=== PATIENT | male | born 1935 | race Caucasian/White ===

== ENCOUNTER 2020-11-22 16:53 | Inpatient (IN) | payer MEDICARE, SELFPAY ==
--- NOTE | ~2020-11-22 | CT_ITS ---
EXAMINATION: CT HEAD WITHOUT CONTRAST CLINICAL INFORMATION: Altered mental status COMPARISON: CT head 09/07/2012 TECHNIQUE: Contiguous axial imaging was performed from the skull base to vertex without intravenous administration of contrast. Coronal and sagittal reformatted images are performed at CT scanner This CT examination was performed using dose optimization techniques as appropriate, variously including the following: *Automated exposure control *Adjustment of mA and/or kV according to patient size (this includes techniques or standardized protocols for targeted exams where dose is matched to indication/reason for exam; i.e. extremities or head) *Use of iterative reconstruction technique DLP: 678 mGy-cm FINDINGS: There is no evidence of acute intracranial hemorrhage or territorial infarction. No abnormal mass effect or midline shift is seen. Mck[place] to white matter differentiation is well preserved. No extra-axial fluid collections are identified. There is atrophy with prominence of the ventricles and the sulci and hypodensity of the periventricular white matter due to chronic small vessel ischemic disease. There are vascular calcifications of the internal carotid arteries bilaterally. The osseous structures and soft tissues are normal. The mastoid air cells and visualized portions of the paranasal sinuses are well aerated. CT/CT head/brain wo con IMPRESSION: No acute intracranial pathology.
--- NOTE | ~2020-11-22 | CT_ITS ---
EXAMINATION: CT CHEST WITHOUT CONTRAST CLINICAL INFORMATION: Shortness of breath COMPARISON: Chest radiograph earlier today TECHNIQUE: Multidetector volumetric CT imaging of the chest was done. Axial MIP volume rendering provided. Sagittal and coronal reformatted images were obtained. This CT examination was performed using dose optimization techniques as appropriate, variously including the following: *Automated exposure control *Adjustment of mA and/or kV according to patient size (this includes techniques or standardized protocols for targeted exams where dose is matched to indication/reason for exam; i.e. extremities or head) *Use of iterative reconstruction technique DLP: 352 mGy-cm FINDINGS: LUNGS AND PLEURA: Some increased interstitial markings are present in the pulmonary parenchyma consistent with some mild interstitial edema. There are bilateral pleural effusions similar to those seen on the chest radiograph with bibasilar associated compressive atelectasis. The findings at the lung bases appear more like atelectasis rather than infectious consolidation. No multifocal infiltrates are seen to suggest COVID or any other infectious etiology. MEDIASTINUM: No mediastinal or hilar lymphadenopathy is seen. Extensive coronary calcifications are present. The heart is minimally enlarged. No pericardial effusion is seen. AXILLA: No lymphadenopathy. UPPER ABDOMEN: A small calcified splenic granuloma is present. OSSEOUS STRUCTURES: Degenerative changes present spine CT/CT chest wo con IMPRESSION: CHF with bilateral pleural effusions and bilateral lower lobe atelectasis.
--- NOTE | ~2020-11-22 | XR_ITS ---
EXAMINATION: XR CHEST CLINICAL INFORMATION: Dyspnea and wheezing COMPARISON: Wrist radiograph 11/06/[address] abdomen pelvis 11/13/2019 TECHNIQUE: Frontal view of the chest was obtained. FINDINGS: The heart size is slightly larger than previously noted. There is upper zone redistribution present which is new. Bibasilar infiltrates present along with a small possible pleural effusions. XR/XR chest 1V IMPRESSION: Findings suggestive of CHF pulmonary vascular congestion and small effusions. Infectious etiology for infiltrate, especially at the right base, cannot be excluded.
[2020-11-22 17:04] VITALS: BP 178/85; PULSE 71; RESP 24; TEMP 36.6; O2SAT 96; BMI 41.2
--- NOTE | 2020-11-22 17:36 | ED_ITS ---
HPI - SOB/Dyspnea General Chief Complaint: Dyspnea Stated Complaint: diff breathing Time Seen by Provider: 11/22/20 17:36 Source: EMS Mode of arrival: EMS Limitations: language barrier and altered mental status History of Present Illness HPI Narrative: This is a 85-year-old Occitan-speaking male with past medical hi story that is significant for asthma, diabetes, hypertension, hyperlipidemia, hypothyroidism, colitis, and per family is due to see Neurology for possible diagnosis of dementia, interview conducted in the presence of operations superintendent though this is very limited given his current state as noted in the HPI below Patient arrives from home with complaint of shortness of breath and altered mental status going on for the past 1 week history mostly gathered from Granddaughter Erika [phone] and son Eloy Christensen [phone] whom the report is the healthcare proxy. She reports that patient at baseline somewhat confused and plan for evaluation for dementia actually has an appointment coming up with Neurology Dr. Richardson in 2 weeks however over the past 1 week he has become a little more confused than usual he has not been ambulating by himself which is usually able to do some ADLs and ambulate independently he has not been doing this appears to be short of breath and wheezing as well as he seems more confused and behaviorally he has been more aggressive. Given this they thought he might have a UTI versus some breathing problems so they called her primary care doctor on-call to given the symptoms was advised to come to the emergency room. Family denies any recent travel or sick contacts. States he has been taking his medication Unfortunately due to the COVID-19 most of my interview was conducted via phone with the family I evaluated patient at bedside who I found sitting up in erected position does not appear in any overt distress however his pulse oximeter at bedside res 92% on room air. His speech is intelligible states he only has problem with breathing otherwise denies any pain. He is alert and oriented x1. Otherwise he has no focal neurological findings on exam. MD elicited complaint: shortness of breath Pertinent past history: asthma and DVT Onset (ago): week(s) Severity: moderate Associated symptoms: wheezing Treatment prior to arrival: none Related Data Home Medications Medication Instructions Recorded Confirmed fluticasone propionate [Flovent 2 puff INHALATION BID 11/22/20 11/22/20 HFA] levothyroxine 125 mcg PO DAILY@0630 11/22/20 11/22/20 lisinopril-hydrochlorothiazide 1 tab PO DAILY 11/22/20 11/22/20 metformin 1,000 mg PO BIDWM 11/22/20 11/22/20 metoprolol succinate 100 mg PO DAILY 11/22/20 11/22/20 pioglitazone 15 mg PO DAILY 11/22/20 11/22/20 simvastatin 40 mg PO BEDTIME 11/22/20 11/22/20 tramadol 50 mg PO Q12H PRN 11/22/20 11/22/20 Allergies Allergy/AdvReac Type Severity Reaction Status Date / Time No Known Allergies Allergy Unverified 06/13/20 15:59 [No Known Allergies*] Review of Systems Review of Systems: Constitutional: No Weight loss, No Fever, No Chills, No Night Sweats, No Fatigue, No Malaise ENT/Mouth: No Hearing loss, No Ear Pain, No Nasal Congestion, No Sinus Pain, No Hoarseness, No sore throat, No Rhinorrhea, No Swallowing Difficulty Eyes: No Eye Pain, No Swelling, No Redness, No Foreign Body, No Discharge, No Vision Changes Cardiovascular: No Chest Pain, + SOB, No Edema, No Palpitations Respiratory: + Cough, No Sputum, No Wheezing, No Dyspnea Gastrointestinal: No Nausea, No Vomiting, No Diarrhea, No Constipation, No abdominal Pain, No Hematochezia, No Melena Genitourinary: No Dysuria, No Urinary Frequency, No Hematuria, No Urinary In continence, No Urgency, No Flank Pain, No Urinary Flow Changes, No Hesitancy Musculoskeletal: No joint pain, No Myalgias, No Joint Swelling Skin: No Skin Lesions, No rash Neuro: No Weakness, No Numbness, No Paresthesias, No Loss of Consciousness, No Dizziness, No Headache Psych: No SI/HI/AH/VH Heme/Lymph: No Bruising, No Bleeding,No Lymphadenopathy Endocrine: No Polyuria, No Polydipsia, No Temperature Intolerance Yes all other systems are reviewed and are negative (ROS with assist of Family ) Neurologic: Reports Abnormal speech present [facility] Past Medical History Medical History (Updated 11/22/20 @ 22:08 by Nicolás Pires NP) Arthritis Asthma Colitis Diabetes Hyperlipidemia Hypertension Hypothyroidism Social History Social History Advance Directives: No Advance Directives Information Provided: Yes Physical Exam Vital Signs: Vital Signs: Last Vital Signs Temp 98 F 11/22/20 17:04 Pulse 71 11/22/20 20:00 Resp 20 11/22/20 20:00 BP 126/67 11/22/20 20:00 Pulse Ox 95 11/22/20 20:08 Body Mass Index 41.2 Reviewed Const: Other: Appears overweight, elderly, frail General: acute distress mild and respiratory; No intoxicated appearing Nutritional Appearance: average body habitus Orientation/consciousness: oriented to person HENMT: Head: Yes normal to inspection Ears: hearing grossly normal bilaterally Eyes: General: appearance normal, both eyes and all related structures Visual [place]: normal visual [place] by confrontation Neck: Neck: Yes normal visual inspection, No positive Brudzinski's sign, No positive Kernig's sign and No tender Thyroid: Thyroid normal Chest: Chest palpation & inspection: normal inspection of the chest Resp: Effort & Inspection: normal respiratory effort and paradoxical thoraco- abdominal movements (Very mildly) Auscultation: wheezes scattered wheezes Cardio: Jugular venous distension: no JVD Rate: regular rate Rhythm: regular rhythm Heart sounds: S1 normal heart sound present and S2 normal heart sound present GI: Inspection: Yes normal to inspection Percussion: Yes normal to percussion Auscultation: normal bowel sounds : General: Yes no CVA tenderness Back/Spine/Pelvis: Back: no CVA tenderness Skin: General skin exam: no rashes or lesions noted Neuro: General: oriented to person, moves all extremities and Unable to assess gait Cranial nerves: Yes CN's II-XII intact bilaterally, Yes Normal accommodation reflex present, Yes Normal gag reflex present and Yes Ability to bilaterally elevate shoulders present Cognition (Neuro): abnormal cognition Speech: Abnormal speech present Gait exam (Neuro): Unable to assess gait Motor exam (neuro): 5/5 motor strength present throughout and Normal motor muscle tone present throughout Sensory Exam: Normal double simultaneous stimulation for sensation Extrem: General: Yes normal to inspection NIH Stroke Scale Internal: Initial- Upon Arrival Level of Consciousness: Alert Level of Consciousness Questions: Answers one question correctly Level of Consciousness Commands: Performs one task correctly Best Gaze: Normal Visual: No visual loss Facial Palsy: Normal Motor Arm (Right): No drift Motor Arm (Left): No drift Motor Leg (Right): No drift Motor Leg (Left): No drift Limb Ataxia: Absent Sensory: Normal Best Language: No aphasia Dysarthia: Normal Extinction and Inattention: No abnormality Score: 2 Course Course Course Narrative: 1744 In review 85-year-old Occitan-speaking male with past medical history that is significant for asthma, diabetes, hypertension, hyperlipidemia, hypothyroidism, colitis with possible underlying dementia presenting with altered mental status and some dyspnea with question of asthma exacerbation no recent fevers there is been a cough and also question per granddaughter of aspiration pneumonia seeming more confused and aggressive over the past 1 week. On examination alert and oriented to person but not place or time. Does have coarse respiratory sounds. He is oxygenating in the low 90s which dipped stones with any exertion even activity in the bed. At this time he is out of the window for tPA I question this change in mentation secondary to infectious pathology and less likely CVA. Will get a head CT including labs and COVID stratification labs/blood cultures and lactic acid.. Will treat with IV Solu-Medrol, nebs will be cautious with fluids at this time. Reevaluation(s) Reevaluation #1: 1800 Chest x-ray findings suggestive of CHF pulmonary vascular congestion and small effusions. Infectious etiology for infiltrate, especially at the right base, cannot be excluded. Given ceftriaxone for coverage of cap. Solu-Medrol and neb in progress. Does not appear to have any history of CHF in the past at this time he is in no acute distress hemodynamically stable will hold off on diuresis until we get labs back which should be relatively soon. Reevaluation #2: Labs without leukocytosis marginal drop in H&H since October 2019. Ages D-dimer within normal limits. CT findings CHF given Lasix given hypoxia plan for admission. Stable at this time. Consultations Consultation #1: Case discussed with hospitalist for admission. MDM - SOB/Dyspnea Differential Diagnosis Differential diagnosis: Likely acute exacerbation of chronic obstructive airways disease, congestive heart failure, pneumonia and asthma with exacerbation; Unlikely pulmonary embolism, pleural effusion, sleep apnea and anemia Medical Records Attestation: I reviewed the patient's medical records. Medical records narrative: Prior ED visit in the old EMR Seen in the ER for abdominal pain on 11/13/2019 Lab Data Attestation: I reviewed the patient's lab results. Result diagrams: 11/22/20 19:32 11/22/20 19:32 Labs: Lab Results 11/22/20 11/22/20 11/22/20 Range/Units 17:12 18:58 19:16 WBC (4.8-10.8) X10*3/uL RBC (4.60-5.80) X10*6/uL Hgb (14.0-18.0) g/dl Hct (42-52) % MCV (80-98) fL MCH (27.0-33.0) pg MCHC (31.0-36.0) g/dl RDW (11.0-16.0) % Plt Count (160-400) X10*3/uL MPV (9.4-12.4) fL Immature Gran % (Auto) (0.0-0.4) % Neut % (Auto) (45-73) % Lymph % (Auto) (20-40) % Brown % (Auto) (2-11) % Eos % (Auto) (0-4) % Baso % (Auto) (0-2) % Lymph # (Auto) (1.2-4.9) X10*3/uL Brown # (Auto) (0.1-1.2) X10*3/uL Eos # (Auto) (0.0-0.4) X10*3/uL Baso # (Auto) (0.0-0.2) X10*3/uL Abs Immat Gran (auto) (0.00-0.03) X10*3/uL Absolute Neuts (auto) (2.0-8.3) X10*3/uL Absolute Nucleated RBC (0.0-0.012) X10*3/uL Nucleated RBC % (auto) (0.0-0.2) /100WBC PT (10.8-13.0) SEC INR (0.9-1.1) APTT (24.1-38.0) SEC D-Dimer NG/ML Sodium (135-145) mmol/L Potassium (3.3-5.1) mmol/L Chloride (96-108) mmol/L Carbon Dioxide (22-29) mmol/L Anion Gap (12-20) BUN (9-16) mg/dL Creatinine (0.5-1.4) mg/dL Estim Creat Clear Calc Estimated GFR Random Glucose (60-115) mg/dL Lactic Acid (0.5-2.0) mmol/L Calcium (8.4-10.2) mg/dL Ferritin (20-250) ng/mL Total Bilirubin (0.0-1.0) mg/dL AST (5-37) U/L ALT (0-40) U/L Alkaline Phosphatase (39-117) U/L Lactate Dehydrogenase (118-273) U/L Troponin I High Sens (<3.5-35.0) ng/L C-Reactive Protein (< or = 0.50) mg/dL B-Natriuretic Peptide (<100) pg/mL Total Protein (6.5-8.0) g/dL Albumin (3.5-5.0) g/dL Procalcitonin ng/mL Urine Color YELLOW Urine Appearance CLEAR Urine pH 5.5 (5.0-8.0) Ur Specific [place] >= 1.030 H (1.005-1.025) Urine Protein TRACE (NEG-TRACE) MG/DL Urine Glucose (UA) NEG (NEG) MG/DL Urine Ketones NEG (NEG) MG/DL Urine Blood 2+ H (NEG) Urine Nitrite NEG (NEG) Ur Leukocyte Esterase NEG (NEG) Urine RBC 15-29 H (0) /HPF Urine WBC 0 (0-4) /HPF Ur Squamous Epith Cells NONE /LPF Urine Bacteria 1+ /LPF Coronavirus (PCR) NEGATIVE (Negative) COVID-19 (SAI) Negative (Negative) COVID-19 Clin Com See Note Influenza Type A (PCR) NEGATIVE (Negative) Influenza Type B (PCR) NEGATIVE (Negative) RSV RNA Qual (PCR) NEGATIVE (Negative) 11/22/20 11/22/20 11/22/20 Range/Units 19:31 19:31 19:31 WBC (4.8-10.8) X10*3/uL RBC (4.60-5.80) X10*6/uL Hgb (14.0-18.0) g/dl Hct (42-52) % MCV (80-98) fL MCH (27.0-33.0) pg MCHC (31.0-36.0) g/dl RDW (11.0-16.0) % Plt Count (160-400) X10*3/uL MPV (9.4-12.4) fL Immature Gran % (Auto) (0.0-0.4) % Neut % (Auto) (45-73) % Lymph % (Auto) (20-40) % Brown % (Auto) (2-11) % Eos % (Auto) (0-4) % Baso % (Auto) (0-2) % Lymph # (Auto) (1.2-4.9) X10*3/uL Brown # (Auto) (0.1-1.2) X10*3/uL Eos # (Auto) (0.0-0.4) X10*3/uL Baso # (Auto) (0.0-0.2) X10*3/uL Abs Immat Gran (auto) (0.00-0.03) X10*3/uL Absolute Neuts (auto) (2.0-8.3) X10*3/uL Absolute Nucleated RBC (0.0-0.012) X10*3/uL Nucleated RBC % (auto) (0.0-0.2) /100WBC PT (10.8-13.0) SEC INR (0.9-1.1) APTT (24.1-38.0) SEC D-Dimer NG/ML Sodium (135-145) mmol/L Potassium (3.3-5.1) mmol/L Chloride (96-108) mmol/L Carbon Dioxide (22-29) mmol/L Anion Gap (12-20) BUN (9-16) mg/dL Creatinine (0.5-1.4) mg/dL Estim Creat Clear Calc Estimated GFR Random Glucose (60-115) mg/dL Lactic Acid 1.1 (0.5-2.0) mmol/L Calcium (8.4-10.2) mg/dL Ferritin (20-250) ng/mL Total Bilirubin (0.0-1.0) mg/dL AST (5-37) U/L ALT (0-40) U/L Alkaline Phosphatase (39-117) U/L Lactate Dehydrogenase (118-273) U/L Troponin I High Sens 19.5 (<3.5-35.0) ng/L C-Reactive Protein (< or = 0.50) mg/dL B-Natriuretic Peptide 196 H (<100) pg/mL Total Protein (6.5-8.0) g/dL Albumin (3.5-5.0) g/dL Procalcitonin ng/mL Urine Color Urine Appearance Urine pH (5.0-8.0) Ur Specific [place] (1.005-1.025) Urine Protein (NEG-TRACE) MG/DL Urine Glucose (UA) (NEG) MG/DL Urine Ketones (NEG) MG/DL Urine Blood (NEG) Urine Nitrite (NEG) Ur Leukocyte Esterase (NEG) Urine RBC (0) /HPF Urine WBC (0-4) /HPF Ur Squamous Epith Cells /LPF Urine Bacteria /LPF Coronavirus (PCR) (Negative) COVID-19 (SAI) (Negative) COVID-19 Clin Com Influenza Type A (PCR) (Negative) Influenza Type B (PCR) (Negative) RSV RNA Qual (PCR) (Negative) 11/22/20 11/22/20 11/22/20 Range/Units 19:31 19:31 19:32 WBC 8.0 (4.8-10.8) X10*3/uL RBC 3.07 L (4.60-5.80) X10*6/uL Hgb 10.2 L (14.0-18.0) g/dl Hct 31.7 L (42-52) % MCV 103.3 H (80-98) fL MCH 33.2 H (27.0-33.0) pg MCHC 32.2 (31.0-36.0) g/dl RDW 15.0 (11.0-16.0) % Plt Count 296 (160-400) X10*3/uL MPV 10.6 (9.4-12.4) fL Immature Gran % (Auto) 0.5 H (0.0-0.4) % Neut % (Auto) 69.5 (45-73) % Lymph % (Auto) 22.5 (20-40) % Brown % (Auto) 5.8 (2-11) % Eos % (Auto) 1.4 (0-4) % Baso % (Auto) 0.3 (0-2) % Lymph # (Auto) 1.8 (1.2-4.9) X10*3/uL Brown # (Auto) 0.5 (0.1-1.2) X10*3/uL Eos # (Auto) 0.1 (0.0-0.4) X10*3/uL Baso # (Auto) 0.0 (0.0-0.2) X10*3/uL Abs Immat Gran (auto) 0.04 H (0.00-0.03) X10*3/uL Absolute Neuts (auto) 5.6 (2.0-8.3) X10*3/uL Absolute Nucleated RBC 0.000 (0.0-0.012) X10*3/uL Nucleated RBC % (auto) 0.0 (0.0-0.2) /100WBC PT (10.8-13.0) SEC INR (0.9-1.1) APTT (24.1-38.0) SEC D-Dimer NG/ML Sodium (135-145) mmol/L Potassium (3.3-5.1) mmol/L Chloride (96-108) mmol/L Carbon Dioxide (22-29) mmol/L Anion Gap (12-20) BUN (9-16) mg/dL Creatinine (0.5-1.4) mg/dL Estim Creat Clear Calc Estimated GFR Random Glucose (60-115) mg/dL Lactic Acid (0.5-2.0) mmol/L Calcium (8.4-10.2) mg/dL Ferritin 42 (20-250) ng/mL Total Bilirubin (0.0-1.0) mg/dL AST (5-37) U/L ALT (0-40) U/L Alkaline Phosphatase (39-117) U/L Lactate Dehydrogenase (118-273) U/L Troponin I High Sens (<3.5-35.0) ng/L C-Reactive Protein (< or = 0.50) mg/dL B-Natriuretic Peptide (<100) pg/mL Total Protein (6.5-8.0) g/dL Albumin (3.5-5.0) g/dL Procalcitonin 0.03 ng/mL Urine Color Urine Appearance Urine pH (5.0-8.0) Ur Specific [place] (1.005-1.025) Urine Protein (NEG-TRACE) MG/DL Urine Glucose (UA) (NEG) MG/DL Urine Ketones (NEG) MG/DL Urine Blood (NEG) Urine Nitrite (NEG) Ur Leukocyte Esterase (NEG) Urine RBC (0) /HPF Urine WBC (0-4) /HPF Ur Squamous Epith Cells /LPF Urine Bacteria /LPF Coronavirus (PCR) (Negative) COVID-19 (SAI) (Negative) COVID-19 Clin Com Influenza Type A (PCR) (Negative) Influenza Type B (PCR) (Negative) RSV RNA Qual (PCR) (Negative) 11/22/20 11/22/20 Range/Units 19:32 19:32 WBC (4.8-10.8) X10*3/uL RBC (4.60-5.80) X10*6/uL Hgb (14.0-18.0) g/dl Hct (42-52) % MCV (80-98) fL MCH (27.0-33.0) pg MCHC (31.0-36.0) g/dl RDW (11.0-16.0) % Plt Count (160-400) X10*3/uL MPV (9.4-12.4) fL Immature Gran % (Auto) (0.0-0.4) % Neut % (Auto) (45-73) % Lymph % (Auto) (20-40) % Brown % (Auto) (2-11) % Eos % (Auto) (0-4) % Baso % (Auto) (0-2) % Lymph # (Auto) (1.2-4.9) X10*3/uL Brown # (Auto) (0.1-1.2) X10*3/uL Eos # (Auto) (0.0-0.4) X10*3/uL Baso # (Auto) (0.0-0.2) X10*3/uL Abs Immat Gran (auto) (0.00-0.03) X10*3/uL Absolute Neuts (auto) (2.0-8.3) X10*3/uL Absolute Nucleated RBC (0.0-0.012) X10*3/uL Nucleated RBC % (auto) (0.0-0.2) /100WBC PT 13.4 H (10.8-13.0) SEC INR 1.1 (0.9-1.1) APTT 30.2 (24.1-38.0) SEC D-Dimer 353 NG/ML Sodium 139 (135-145) mmol/L Potassium 5.0 (3.3-5.1) mmol/L Chloride 103 (96-108) mmol/L Carbon Dioxide 28 (22-29) mmol/L Anion Gap 13 (12-20) BUN 27 H (9-16) mg/dL Creatinine 1.25 (0.5-1.4) mg/dL Estim Creat Clear Calc 48.3 Estimated GFR 55 Random Glucose 117 H (60-115) mg/dL Lactic Acid (0.5-2.0) mmol/L Calcium 8.3 L (8.4-10.2) mg/dL Ferritin (20-250) ng/mL Total Bilirubin 0.5 (0.0-1.0) mg/dL AST 22 (5-37) U/L ALT 25 (0-40) U/L Alkaline Phosphatase 176 H (39-117) U/L Lactate Dehydrogenase 279 H (118-273) U/L Troponin I High Sens (<3.5-35.0) ng/L C-Reactive Protein 0.19 (< or = 0.50) mg/dL B-Natriuretic Peptide (<100) pg/mL Total Protein 6.6 (6.5-8.0) g/dL Albumin 3.8 (3.5-5.0) g/dL Procalcitonin ng/mL Urine Color Urine Appearance Urine pH (5.0-8.0) Ur Specific [place] (1.005-1.025) Urine Protein (NEG-TRACE) MG/DL Urine Glucose (UA) (NEG) MG/DL Urine Ketones (NEG) MG/DL Urine Blood (NEG) Urine Nitrite (NEG) Ur Leukocyte Esterase (NEG) Urine RBC (0) /HPF Urine WBC (0-4) /HPF Ur Squamous Epith Cells /LPF Urine Bacteria /LPF Coronavirus (PCR) (Negative) COVID-19 (SAI) (Negative) COVID-19 Clin Com Influenza Type A (PCR) (Negative) Influenza Type B (PCR) (Negative) RSV RNA Qual (PCR) (Negative) Imaging Data Head CT: Radiologist's impression: [address] [id number] Scan ReportSigned Patient: Fermin SantoyoAnatolioMR#: [id number]: 04[birth year]04[birth year] 35Acct:[id number]/Sex: 85 / MADM Date: 11/22/20Loc: HO.EDAttending Dr: Ordering Physician: Nicolás Pires NP Date of Service: 11/22/20 Procedure(s): CT head/brain wo con Accession Number(s): [id number] cc: Nicolás Pires AUTO DAMAGE ADJUSTER~ EXAMINATION: CT HEAD WITHOUT CONTRAST CLINICAL INFORMATION: Altered mental status COMPARISON: CT head 09/07/2012 TECHNIQUE: Contiguous axial imaging was performed from the skull base to vertex without intravenous administration of contrast. Coronal and sagittal reformatted images are performed at CT scanner This CT examination was performed using dose optimization techniques as appropriate, variously including the following: *Automated exposure control *Adjustment of mA and/or kV according to patient size (this includes techniques or standardized protocols for targeted exams where dose is matched to indication/reason for exam; i.e. extremities or head) *Use of iterative reconstruction technique DLP: 678 mGy-cm FINDINGS: There is no evidence of acute intracranial hemorrhage or territorial infarction. No abnormal mass effect or midline shift is seen. Mck[place] to white matter differentiation is well preserved. No extra-axial fluid collections are identified. There is atrophy with prominence of the ventricles and the sulci and hypodensity of the periventricular white matter due to chronic small vessel ischemic disease. There are vascular calcifications of the internal carotid arteries bilaterally. The osseous structures and soft tissues are normal. The mastoid air cells and visualized portions of the paranasal sinuses are well aerated. CT/CT head/brain wo con IMPRESSION: No acute intracranial pathology. Dictated By:CONOR ARECHIGA MDSigned By:<Electronically signed by CONOR ARECHIGA MD in OV>11/22/20 1844 DD/ 1746TD/TT: Coagulating Drying Supervisor: YOHANNES Chest x-ray: Radiologist's impression: [address] [id number] ReportSigned Patient: Fermin SantoyoAnatolioMR#: [id number]: 5Acct:[id number]/Sex: 85 / MADM Date: 11/22/20Loc: HO.EDAttending Dr: Ordering Physician: Luisa ED Physician Date of Service: 11/22/20 Procedure(s): XR chest 1V Accession Number(s): [id number] cc: Generic ED Physician~ EXAMINATION: XR CHEST CLINICAL INFORMATION: Dyspnea and wheezing COMPARISON: Wrist radiograph 11/06/[address] abdomen pelvis 11/13/2019 TECHNIQUE: Frontal view of the chest was obtained. FINDINGS: The heart size is slightly larger than previously noted. There is upper zone redistribution present which is new. Bibasilar infiltrates present along with a small possible pleural effusions. XR/XR chest 1V IMPRESSION: Findings suggestive of CHF pulmonary vascular congestion and small effusions. Infectious etiology for infiltrate, especially at the right base, cannot be excluded. Dictated By:BRIAN REVELES MDSigned By:<Electronically signed by BRIAN REVELES MD in OV>11/22/208 DD/ 1736TD/TT: Coagulating Drying Supervisor: OZ Chest CT: Radiologist's impression: [address] [id number] ReportSigned Patient: Emiliano Mccloud#: [id number]: 10/02/1986Acct:[id number]/Sex: 34 / FADM Date: 11/22/20Loc: HO.EDAttending Dr: Ordering Physician: Nicolás Pires NP Date of Service: 11/22/20 Procedure(s): XR femur LT 2V Accession Number(s): [id number] cc: Nicolás Pires AUTO DAMAGE ADJUSTER~ EXAMINATIONS: THORACIC SPINE AND LEFT FEMUR 2 VIEWS CLINICAL INFORMATION: Pain after fall. COMPARISON: None. TECHNIQUE: AP and lateral radiographs of the thoracic spine were obtained. AP and lateral views of the left femur are provided. FINDINGS: There are no fractures. The thoracic vertebrae are in normal alignment. Disc heights and vertebral body heights are well-preserved. Clips There are no acute fractures to the left femur. The left femoral head is seated within a well-formed acetabulum. There is no left knee joint effusion. XR/XR femur LT 2V IMPRESSION: Unremarkable thoracic spine series. No evidence for acute injury to the left femur. Dictated By:BRITTANY JESUS MDSigned By:<Electronically signed by BRITTANY JESUS MD in OV>11/22/202040 DD/ 11TD/TT: Coagulating Drying Supervisor: ECG Data Interpretation: Normal sinus rhythm Rate 73 GA interval [address] segment changes Discharge Plan Discharge Clinical Impression: New onset of congestive heart failure, Asthma exacerbation Prescriptions: No Action pioglitazone 15 mg tablet 15 mg PO DAILY RF: 0 metoprolol succinate 100 mg tablet extended release 24 hr 100 mg PO DAILY RF: 0 tramadol 50 mg tablet 50 mg PO Q12H PRN (Reason: pain) RF: 0 simvastatin 40 mg tablet 40 mg PO BEDTIME RF: 0 metformin 1,000 mg tablet 1,000 mg PO BIDWM RF: 0 levothyroxine 125 mcg tablet 125 mcg PO DAILY@0630 RF: 0 Flovent HFA 44 mcg/actuation HFA aerosol inhaler 2 puff inhalation BID RF: 0 lisinopril-hydrochlorothiazide 20-25 mg tablet 1 tab PO DAILY RF: 0
--- NOTE | 2020-11-22 17:45 | ECG_ITS ---
Test Reason : DSYPNEA Blood Pressure : / mmHG Vent. Rate : 073 BPM Atrial Rate : 073 BPM P-R Int : 180 ms QRS Dur : 074 ms QT Int : 398 ms P-R-T Axes : 059 013 036 degrees QTc Int : 438 ms Normal sinus rhythm Normal ECG When compared to the previous EKG of No significant changes seen Referred By: Yesy Servin Electronically Signed By:KAMILAH GARDINER MD
[2020-11-22 17:49] LABS: COVID-19 Test Negative (Negative); IDNOW Serial# 9DD0AD1C
[2020-11-22] MEDS: Albuterol Sulfate (0.083%) 2.5 MG/3 ML VIAL.NEB 5 MG INHALE (18:27)
[2020-11-22 18:30] VITALS: PULSE 71; O2SAT 97
[2020-11-22 19:23] LABS: Glucose Urine UA NEG (NEG); Leukocyte Esterase Urine NEG (NEG); Nitrite Urine NEG (NEG); PH 5.5 (5.0-8.0); Specific Gravity - Urine >= 1.030 (1.005-1.025); Urine Blood 2+ (NEG); Urine Ketones NEG (NEG); Urine Protein TRACE MG/DL (NEG-TRACE)
[2020-11-22 19:25] LABS: Appearance Urine CLEAR; Color Urine YELLOW
[2020-11-22 19:32] LABS: Bacteria Urine 1+ /LPF; WBC Urine 0 /HPF (0-4)
[2020-11-22 19:40] LABS: MANUAL DIFF FLAG NO
[2020-11-22 19:47] LABS: Basophils Percent Auto 0.3 % (0-2); Eosinophils Absolute Auto 0.1 X10*3/uL (0.0-0.4); Eosinophils Percent Auto 1.4 % (0-4); Hematocrit 31.7 % (42-52); Hemoglobin 10.2 g/dl (14.0-18.0); Imm Gran Abs Auto 0.04 X10*3/uL (0.00-0.03); Imm Gran Pct Auto 0.5 % (0.0-0.4); Lymphocytes Absolute Auto 1.8 X10*3/uL (1.2-4.9); Lymphocytes Percent Auto 22.5 % (20-40); Mean Corpuscular HGB Conc 32.2 g/dl (31.0-36.0); Mean Corpuscular Hemoglobin 33.2 pg (27.0-33.0); Mean Corpuscular Volume 103.3 fL (80-98); Mean Platelet Volume 10.6 fL (9.4-12.4); Monocytes Absolute Auto 0.5 X10*3/uL (0.1-1.2); Monocytes Percent Auto 5.8 % (2-11); Neutrophils Absolute Auto 5.6 X10*3/uL (2.0-8.3); Neutrophils Percent Auto 69.5 % (45-73); Platelet Count 296 X10*3/uL (160-400); Red Blood Count 3.07 X10*6/uL (4.60-5.80)
[2020-11-22 19:48] LABS: INTERNATIONAL NORM RATIO 1.1 (0.9-1.1); Prothrombin Time 13.4 SEC (10.8-13.0)
[2020-11-22 19:50] LABS: Influenza A PCR NEGATIVE (Negative); Influenza B PCR NEGATIVE (Negative); Resp Syncy Virus RNA Qual PCR NEGATIVE (Negative); SARS COV2 PCR INHOUSE NEGATIVE (Negative)
[2020-11-22 19:51] LABS: D Dimer 353 NG/ML; Partial Thromboplastin Time 30.2 SEC (24.1-38.0)
[2020-11-22] MEDS: cefTRIAXone sodium 1 GM in 0.9 % Sodium Chloride 50 ML IV (19:57)
[2020-11-22] MEDS: methylPREDNISolone Sod Succ/PF 125 MG/2 ML VIAL IVPUSH (19:57)
[2020-11-22 20:00] VITALS: BP 126/67; PULSE 71; RESP 20; O2SAT 88
[2020-11-22 20:04] LABS: Lactic Acid 1.1 mmol/L (0.5-2.0)
[2020-11-22 20:08] VITALS: O2SAT 95
[2020-11-22 20:09] LABS: Alanine Aminotransferase 25 U/L (0-40); Albumin Level 3.8 g/dL (3.5-5.0); Alkaline Phosphatase 176 U/L (39-117); Anion Gap 13 (12-20); Aspartate Amino Transferase 22 U/L (5-37); Bilirubin Total 0.5 mg/dL (0.0-1.0); Blood Urea Nitrogen 27 mg/dL (9-16); C Reactive Protein 0.19 mg/dL (< or = 0.50); Calcium 8.3 mg/dL (8.4-10.2); Carbon Dioxide 28 mmol/L (22-29); Chloride 103 mmol/L (96-108); Creatinine Clr Calc Pharmacy 48.3; Estimated Glomerular Filt Rate 55; Glucose Random 117 mg/dL (60-115); Lactate Dehydrogenase 279 U/L (118-273); Sodium 139 mmol/L (135-145); Total Protein 6.6 g/dL (6.5-8.0)
[2020-11-22 20:10] LABS: B Type Natriuretic Peptide 196 pg/mL (<100); Troponin-I High Sensitivity 19.5 ng/L (<3.5-35.0)
--- NOTE | 2020-11-22 20:11 | PC.NURSE ---
PT NOTED TO HAVE SPO2 88% WHEN TESTED ON BOTH HANDS, PT IN NAD, BREATHING WITH EASE, 2L O2 NC APPLIED, SPO2 INCREASED TO 95%, PROVIDER AWARE.
[2020-11-22 20:27] LABS: Procalcitonin 0.03 ng/mL
[2020-11-22 20:28] LABS: Ferritin 42 ng/mL (20-250)
--- NOTE | 2020-11-22 22:17 | PM.IMHP ---
History of Present Illness Date of Service: 11/22/20 Chief Complaint: Shortness of breath This is an 85-year-old with past medical history of asthma, diabetes, hypertension, HLD, hypothyroidism, colitis, and possible dementia who presents the hospital with complaints shortness of breath and altered mental status for the past 1 week. History is obtained mostly from EMR as well as ED PA/staff as patient is very confused, makes no sense with his answers and speaks Welsh only. Even with the help of cast iron drain pipe layer he does not make any sense and does not answer questions appropriately. He is alert, on not oriented. According to the daughter patient at baseline is somewhat confused and his family been planning for evaluation for dementia. He has an appointment coming up with Neurology in 2 weeks however for the past 1 week he has been having a little confusion more than usual and complaining of shortness of breath and wheezing. I am unable to obtain full review of system is patient is confused On arrival to the ED for temp of 98?, pulse rate of 71, respiratory rate of 24, blood pressure 178/85, and satting 96% on room air. Patient did drop his oxygen to 88% on ambulation. Labs are significant for WBC count of 8.0, hemoglobin of 10.2, BUN of 27, creatinine of 1.25 which is around his baseline, alk phos of 176, BNP of 196, UA that is positive for blood and RBC, COVID negative, influenza negative. Chest x-ray as well as CT of the chest both demonstrate CHF with bilateral pleural effusions and bilateral lower lobe atelectasis with no evidence of consolidation Patient will be admitted for further management of CHF Past medical history as below, unable to obtain family or surgical history but patient lives with his daughter and no reported history of tobacco alcohol or illicit drugs at this time Review of Systems Review of Systems: Yes Unobtainable due to mental condition and Unobtainable due to mental status [facility] Medical History Arthritis Asthma Colitis Diabetes Hyperlipidemia Hypertension Hypothyroidism Social History Advance Directives: No Advance Directives Information Provided: Yes Meds Allergies Allergy/AdvReac Type Severity Reaction Status Date / Time No Known Allergies Allergy Unverified 06/13/20 15:59 [No Known Allergies*] Home Medications Medication Instructions Recorded Confirmed Last Taken Type fluticasone propionate [Flovent 2 puff INHALATION BID 11/22/20 11/22/20 Unknown History HFA] levothyroxine 125 mcg PO DAILY@0630 11/22/20 11/22/20 Unknown History lisinopril-hydrochlorothiazide 1 tab PO DAILY 11/22/20 11/22/20 Unknown History metformin 1,000 mg PO BIDWM 11/22/20 11/22/20 Unknown History metoprolol succinate 100 mg PO DAILY 11/22/20 11/22/20 Unknown History pioglitazone 15 mg PO DAILY 11/22/20 11/22/20 Unknown History simvastatin 40 mg PO BEDTIME 11/22/20 11/22/20 Unknown History tramadol 50 mg PO Q12H PRN 11/22/20 11/22/20 Unknown History Physical Exam Vital Signs and Narrative: Vital Signs: Last Vital Signs Temp 98 F 11/22/20 17:04 Pulse 71 11/22/20 20:00 Resp 20 11/22/20 20:00 BP 126/67 11/22/20 20:00 Pulse Ox 95 11/22/20 20:08 Body Mass Index 41.2 Const: General: cooperative and no acute distress Eyes: General: appearance normal, both eyes and all related structures Resp: Effort & Inspection: normal respiratory effort Cardio: Rate: regular rate Rhythm: regular rhythm GI: Palpation (GI): Soft to palpation Auscultation: normal bowel sounds Skin: General skin exam: no rashes or lesions noted Neuro: Cognition (Neuro): normal cognition Extrem: General: Yes normal to inspection and Yes no pedal edema Results Labs CBC and Chem 7: 11/22/20 19:32 11/22/20 19:32 Labs: Laboratory Results - last 24 hr 11/22/20 11/22/20 11/22/20 17:12 18:58 19:16 MCV MCH MCHC RDW Plt Count MPV Immature Gran % (Auto) Neut % (Auto) Lymph % (Auto) [place] % (Auto) Eos % (Auto) Baso % (Auto) Lymph # (Auto) [place] # (Auto) Eos # (Auto) Baso # (Auto) Abs Immat Gran (auto) Absolute Neuts (auto) Absolute Nucleated RBC Nucleated RBC % (auto) PT INR APTT D-Dimer Anion Gap Estim Creat Clear Calc Estimated GFR Random Glucose Lactic Acid Calcium Ferritin Total Bilirubin AST ALT Alkaline Phosphatase Lactate Dehydrogenase Troponin I High Sens C-Reactive Protein B-Natriuretic Peptide Total Protein Albumin Procalcitonin Urine Color YELLOW Urine Appearance CLEAR Urine pH 5.5 Ur Specific [place] >= 1.030 H Urine Protein TRACE Urine Glucose (UA) NEG Urine Ketones NEG Urine Blood 2+ H Urine Nitrite NEG Ur Leukocyte Esterase NEG Urine RBC 15-29 H Urine WBC 0 Ur Squamous Epith Cells NONE Urine Bacteria 1+ Coronavirus (PCR) NEGATIVE COVID-19 ([facility]) Negative COVID-19 Clin Com See Note Influenza Type A (PCR) NEGATIVE Influenza Type B (PCR) NEGATIVE RSV RNA Qual (PCR) NEGATIVE 11/22/20 11/22/20 11/22/20 19:31 19:31 19:31 MCV MCH MCHC RDW Plt Count MPV Immature Gran % (Auto) Neut % (Auto) Lymph % (Auto) [place] % (Auto) Eos % (Auto) Baso % (Auto) Lymph # (Auto) [place] # (Auto) Eos # (Auto) Baso # (Auto) Abs Immat Gran (auto) Absolute Neuts (auto) Absolute Nucleated RBC Nucleated RBC % (auto) PT INR APTT D-Dimer Anion Gap Estim Creat Clear Calc Estimated GFR Random Glucose Lactic Acid 1.1 Calcium Ferritin Total Bilirubin AST ALT Alkaline Phosphatase Lactate Dehydrogenase Troponin I High Sens 19.5 C-Reactive Protein B-Natriuretic Peptide 196 H Total Protein Albumin Procalcitonin Urine Color Urine Appearance Urine pH Ur Specific [place] Urine Protein Urine Glucose (UA) Urine Ketones Urine Blood Urine Nitrite Ur Leukocyte Esterase Urine RBC Urine WBC Ur Squamous Epith Cells Urine Bacteria Coronavirus (PCR) COVID-19 ([facility]) COVID-19 Clin Com Influenza Type A (PCR) Influenza Type B (PCR) RSV RNA Qual (PCR) 11/22/20 11/22/20 11/22/20 19:31 19:31 19:32 MCV 103.3 H MCH 33.2 H MCHC 32.2 RDW 15.0 Plt Count 296 MPV 10.6 Immature Gran % (Auto) 0.5 H Neut % (Auto) 69.5 Lymph % (Auto) 22.5 [place] % (Auto) 5.8 Eos % (Auto) 1.4 Baso % (Auto) 0.3 Lymph # (Auto) 1.8 [place] # (Auto) 0.5 Eos # (Auto) 0.1 Baso # (Auto) 0.0 Abs Immat Gran (auto) 0.04 H Absolute Neuts (auto) 5.6 Absolute Nucleated RBC 0.000 Nucleated RBC % (auto) 0.0 PT INR APTT D-Dimer Anion Gap Estim Creat Clear Calc Estimated GFR Random Glucose Lactic Acid Calcium Ferritin 42 Total Bilirubin AST ALT Alkaline Phosphatase Lactate Dehydrogenase Troponin I High Sens C-Reactive Protein B-Natriuretic Peptide Total Protein Albumin Procalcitonin 0.03 Urine Color Urine Appearance Urine pH Ur Specific [place] Urine Protein Urine Glucose (UA) Urine Ketones Urine Blood Urine Nitrite Ur Leukocyte Esterase Urine RBC Urine WBC Ur Squamous Epith Cells Urine Bacteria Coronavirus (PCR) COVID-19 ([facility]) COVID-19 Clin Com Influenza Type A (PCR) Influenza Type B (PCR) RSV RNA Qual (PCR) 11/22/20 11/22/20 19:32 19:32 MCV MCH MCHC RDW Plt Count MPV Immature Gran % (Auto) Neut % (Auto) Lymph % (Auto) [place] % (Auto) Eos % (Auto) Baso % (Auto) Lymph # (Auto) [place] # (Auto) Eos # (Auto) Baso # (Auto) Abs Immat Gran (auto) Absolute Neuts (auto) Absolute Nucleated RBC Nucleated RBC % (auto) PT 13.4 H INR 1.1 APTT 30.2 D-Dimer 353 Anion Gap 13 Estim Creat Clear Calc 48.3 Estimated GFR 55 Random Glucose 117 H Lactic Acid Calcium 8.3 L Ferritin Total Bilirubin 0.5 AST 22 ALT 25 Alkaline Phosphatase 176 H Lactate Dehydrogenase 279 H Troponin I High Sens C-Reactive Protein 0.19 B-Natriuretic Peptide Total Protein 6.6 Albumin 3.8 Procalcitonin Urine Color Urine Appearance Urine pH Ur Specific [place] Urine Protein Urine Glucose (UA) Urine Ketones Urine Blood Urine Nitrite Ur Leukocyte Esterase Urine RBC Urine WBC Ur Squamous Epith Cells Urine Bacteria Coronavirus (PCR) COVID-19 ([facility]) COVID-19 Clin Com Influenza Type A (PCR) Influenza Type B (PCR) RSV RNA Qual (PCR) Imaging Radiologist's Impressions: Impressions Chest X-Ray 11/22/20 17:36 IMPRESSION: Findings suggestive of CHF pulmonary vascular congestion and small effusions. Infectious etiology for infiltrate, especially at the right base, cannot be excluded. Head CT 11/22/20 17:46 IMPRESSION: No acute intracranial pathology. Chest CT 11/22/20 20:35 IMPRESSION: CHF with bilateral pleural effusions and bilateral lower lobe atelectasis. Assessment and Plan (1) New onset of congestive heart failure: Status: Acute (2) Dyspnea: Status: Acute (3) Altered mental status: Status: Acute (4) Hematuria: Status: Acute This is a new 85-year-old male with past medical history of asthma presents to the hospital with shortness of breath found to have elevated BNP as well as evidence of CHF on imaging # dyspnea - most likely secondary to CHF, PE less likely, pneumonia less likely - CT of the chest as well as x-ray both demonstrate CHF with pulmonary congestion - patient has elevated BNP although obese and therefore may not be significantly elevated - has no history of CHF, no history of documented coronary artery disease - troponin of 19.5 Plan: - start patient on 40 IV b.i.d. of Lasix - strict I&O, daily weight, low-sodium diet - echocardiogram - cardiology consult - repeat troponin # new onset CHF - unclear why patient went into CHF at this time - has mildly elevated troponin with no reported chest pain, no EKG changes suggestive of ACS - echocardiogram - Lasix 40 IV b.i.d. - rest of management as above # hematuria - no UTI - will consult Urology # altered mental status - patient family per report the patient has been progressively more confused and possible has now underlying dementia - has an appointment outpatient for evaluation with neurologist - no evidence of acute infection at this time - monitor mentation # diabetes mellitus - low-dose sliding scale insulin - diabetic diet DVT prophylaxis: Heparin subQ Co status: Full code according to the family
[2020-11-22] MEDS: Furosemide 20 MG/2 ML VIAL IVPUSH (22:27)
[2020-11-23] VITALS (7 sets, daily range): BP systolic 116–146; BP diastolic 55–83; PULSE 71–94; RESP 16–20; TEMP 36.7–37.1; O2SAT 94–97
--- NOTE | 2020-11-23 | ECG_ITS ---
Test Reason : DYSPNEA Blood Pressure : / mmHG Vent. Rate : 092 BPM Atrial Rate : 092 BPM P-R Int : 194 ms QRS Dur : 080 ms QT Int : 368 ms P-R-T Axes : 075 017 050 degrees QTc Int : 455 ms Normal sinus rhythm Normal ECG When compared to the previous EKG of No significant changes seen Referred By: Yesy Servin Electronically Signed By:KAMILAH GARDINER MD
[2020-11-23] MEDS: Heparin Sodium,Porcine 5,000 UNIT/ML VIAL 5000 UNIT SUBCUT ×2 (03:28→16:05)
[2020-11-23 07:13] LABS: Basophils Percent Auto 0.2 % (0-2); Hematocrit 30.1 % (42-52); Hemoglobin 9.8 g/dl (14.0-18.0); Imm Gran Abs Auto 0.02 X10*3/uL (0.00-0.03); Imm Gran Pct Auto 0.3 % (0.0-0.4); Lymphocytes Absolute Auto 0.5 X10*3/uL (1.2-4.9); Lymphocytes Percent Auto 8.7 % (20-40); MANUAL DIFF FLAG SCAN; Mean Corpuscular HGB Conc 32.6 g/dl (31.0-36.0); Mean Corpuscular Hemoglobin 32.7 pg (27.0-33.0); Mean Corpuscular Volume 100.3 fL (80-98); Mean Platelet Volume 10.6 fL (9.4-12.4); Monocytes Absolute Auto 0.1 X10*3/uL (0.1-1.2); Monocytes Percent Auto 1.6 % (2-11); Neutrophils Absolute Auto 5.4 X10*3/uL (2.0-8.3); Neutrophils Percent Auto 89.2 % (45-73); Platelet Count 286 X10*3/uL (160-400); Red Cell Distribution Width 14.7 % (11.0-16.0); SCAN SMEAR FLAG 1; White Blood Count 6.1 X10*3/uL (4.8-10.8)
[2020-11-23 07:27] LABS: Glucose, Whole Blood 179 mg/dL (60-115)
[2020-11-23 07:44] LABS: Anion Gap 12 (12-20); Blood Urea Nitrogen 27 mg/dL (9-16); Calcium 8.4 mg/dL (8.4-10.2); Carbon Dioxide 26 mmol/L (22-29); Chloride 102 mmol/L (96-108); Creatinine Clr Calc Pharmacy 47.9; Estimated Glomerular Filt Rate 54; Glucose Random 171 mg/dL (60-115); Potassium 4.3 mmol/L (3.3-5.1); Sodium 136 mmol/L (135-145)
[2020-11-23 07:51] LABS: Troponin-I High Sensitivity 40.7 ng/L (<3.5-35.0)
[2020-11-23 08:06] LABS: SLIDE REVIEW VERIFIED
[2020-11-23] MEDS: Metoprolol Succinate ER 100 MG TAB.ER.24H PO (08:27)
[2020-11-23] MEDS: Levothyroxine Sodium 125 MCG TABLET PO (08:31)
[2020-11-23] MEDS: Furosemide 40 MG/4 ML VIAL IVPUSH ×2 (08:31→16:21)
[2020-11-23] MEDS: hydroCHLOROthiazide 25 MG TABLET PO (08:31)
--- NOTE | 2020-11-23 08:33 | PC.NURSE ---
breakfast not here , poc 179, insulin held , sr on monitor, medicated as ordered, no complaints
[2020-11-23] MEDS: 0.9 % Sodium Chloride Flush 3 ML SYRINGE IVFLUSH ×2 (08:36→16:21)
[2020-11-23] MEDS: Insulin Lispro 100 UNIT/ML 3 ML VIAL SUBCUT (09:52)
--- NOTE | 2020-11-23 09:53 | PC.NURSE ---
nad, eating breakfast, sr on monitor
--- NOTE | 2020-11-23 09:55 | MHC.CM.PN ---
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 PT'S SON REPORTS HE IS OK IF STR IS RECOMMENDED AND DOES NOT HAVE PREFERENCE OF FACILITY LONG PT STAYS CLOSE TO HOME POSSIBLE, PT'S SON ALSO HAS NO PREFERENCE OF VNA COMPANIES IF HOME SERVICES ARE RECOMMENDED. PCP: JUANJO MAYORGA HCP: KAL HILLS [phone] NEUROLOGY: HAS AN APPT SCHEDULED TO ASSESS PT FOR DEMENTIA/ALZHEIMERS HOWEVER PT HAD INCREASED CONFUSION AND WAS TOBIN TO ED.
[2020-11-23] MEDS: traMADoL HCL 50 MG TABLET PO (11:12)
--- NOTE | 2020-11-23 11:15 | PC.NURSE ---
pt sudenly became anxious and agitated, states pain in penis re gray, tramadol given and gray checked for placement positioning and was secure w cath secure and draining well, ballon deflated and re inflated w confirmation of propper positioning, sr on monitor, now appears much more calm
--- NOTE | 2020-11-23 12:39 | P.CONCA_ITS ---
History of Present Illness History of Present Illness Date of Service: 11/23/20 Requesting physician: Yesy Servin Consult reason: shortness of breath Chief complaint: CHF Narrative: Thank you for asking us to see Anatsonuo for cardiology consultation today for possible CHF. Patient is confused and does not provide adequate history. Patient with prior history of possible dementia, hypertension, diabetes asthma presented to the hospital with altered mental status and shortness of breath about 1 week. He is brought in by his daughter. In the hospital initially was noted to be hypoxic with ambulation. BNP is minimally elevated. UA is positive for blood and RBCs. Chest x-ray is suggestive of bilateral pleural effusion bilateral lower lobe atelectasis. Cardiology consult was sought for above findings. Patient not able to provide much history. But on asking whether he is having chest pain, he denies. He denies feeling short of breath. Currently using oxygen with saturation well optimized. Hemodynamically stable. Review of Systems Review of Systems: Yes Unobtainable due to mental status Neurologic: Reports confusion Psychiatric: Psychiatric: Reports confusion PMFSH Past Medical History Medical History Arthritis Asthma Colitis Diabetes Hyperlipidemia Hypertension Hypothyroidism Social History Social History Advance Directives: No Advance Directives Information Provided: Yes service: No Current occupational status: unemployed and retired Meds Allergies Allergy/AdvReac Type Severity Reaction Status Date / Time No Known Allergies Allergy Unverified 06/13/20 15:59 [No Known Allergies*] Active Medications: Current Medications Generic Name Dose Route Start Last Admin Trade Name Freq PRN Reason Stop Dose Admin Acetaminophen 650 mg 11/23/20 02:31 Acetaminophen 325 Mg Tablet PO Q6H PRN Pain, Mild (Pain Scale 1-3) Atorvastatin Calcium 20 mg 11/23/20 21:00 Atorvastatin Calcium 20 Mg Tablet PO BEDTIME TOMMY Docusate Sodium 100 mg 11/23/20 02:31 Docusate Sodium 100 Mg Capsule PO DAILY PRN Constipation Furosemide 40 mg 11/23/20 08:00 11/23/20 08:31 Furosemide 40 Mg/4 Ml Vial IVPUSH 40 mg BID@0800,1700 [facility] Administration Protocol Heparin Sodium (Porcine) 5,000 unit 11/23/20 03:00 11/23/20 03:28 Heparin Sodium,Porcine 5,000 Unit/Ml Vial SUBCUT 5,000 unit Q12H [facility] Administration Hydrochlorothiazide 25 mg 11/23/20 09:00 11/23/20 08:31 Hydrochlorothiazide 25 Mg Tablet PO 25 mg DAILY [facility] Administration Insulin Human Lispro 0 unit 11/23/20 07:30 11/23/20 09:52 Insulin Lispro 100 Unit/Ml 3 Ml Vial SUBCUT 2 unit QIDACHS [facility] Administration Protocol Levothyroxine Sodium 125 mcg 11/23/20 06:30 11/23/20 08:31 Levothyroxine Sodium 125 Mcg Tablet PO 125 mcg DAILY@0630 [facility] Administration Lisinopril 20 mg 11/23/20 09:00 11/23/20 08:30 Lisinopril 20 Mg Tablet PO 20 mg DAILY [facility] Administration Metoprolol Succinate 100 mg 11/23/20 09:00 11/23/20 08:27 Metoprolol Succinate Er 100 Mg Tab.Er.24h PO 100 mg DAILY [facility] Administration Protocol Non-Formulary Medication 2 puff 11/23/20 09:00 Fluticasone Propionate [Flovent Hfa] INHALE BID [facility] Ondansetron HCl 4 mg 11/23/20 02:31 Ondansetron Hcl 4 Mg/2 Ml Vial IVPUSH Q8H PRN Nausea and Vomiting Sodium Chloride 3 ml 11/23/20 02:31 11/23/20 08:36 0.9 % Sodium Chloride Flush 3 Ml Syringe IVFLUSH 3 ml QSHIFT [facility] Administration Tramadol HCl 50 mg 11/23/20 02:31 11/23/20 11:12 Tramadol Hcl 50 Mg Tablet PO 50 mg Q12H PRN Administration pain Home Medications Medication Instructions Recorded Confirmed Last Taken Type fluticasone propionate [Flovent 2 puff INHALATION BID 11/22/20 11/22/20 Unknown History HFA] levothyroxine 125 mcg PO DAILY@0630 11/22/20 11/22/20 Unknown History lisinopril-hydrochlorothiazide 1 tab PO DAILY 11/22/20 11/22/20 Unknown History metformin 1,000 mg PO BIDWM 11/22/20 11/22/20 Unknown History metoprolol succinate 100 mg PO DAILY 11/22/20 11/22/20 Unknown History pioglitazone 15 mg PO DAILY 11/22/20 11/22/20 Unknown History simvastatin 40 mg PO BEDTIME 11/22/20 11/22/20 Unknown History tramadol 50 mg PO Q12H PRN 11/22/20 11/22/20 Unknown History Physical Exam Vital Signs: Vital Signs: Last Vital Signs Temp 98.1 F 11/23/20 10:18 Pulse 85 11/23/20 10:18 Resp 16 11/23/20 10:18 BP 116/55 L 11/23/20 10:18 Pulse Ox 94 11/23/20 10:18 Body Mass Index 41.2 Const: General: cooperative, comfortable, no acute distress, alert, awake and confusion Nutritional Appearance: obese Orientation/consciousness: confusion HENMT: Head: Yes normocephalic and Yes atraumatic Neck: Neck: Yes trachea midline, Yes supple and Yes no JVD Resp: Effort & Inspection: decreased respiratory effort Auscultation: wheezes lower bilaterally and diminished lung sounds Cardio: Rate: regular rate Rhythm: regular rhythm Heart sounds: S1 normal heart sound present and S2 normal heart sound present GI: Auscultation: normal bowel sounds Neuro: General: confusion Extrem: General: Yes no clubbing, cyanosis or edema Results Labs and Meds Result diagrams: 11/23/20 07:04 11/23/20 07:04 Lab results: Laboratory Results - last 24 hr 11/22/20 11/22/20 11/22/20 17:12 18:58 19:16 WBC RBC Hgb Hct MCV MCH MCHC RDW Plt Count MPV Immature Gran % (Auto) Neut % (Auto) Lymph % (Auto) [place] % (Auto) Eos % (Auto) Baso % (Auto) Lymph # (Auto) [place] # (Auto) Eos # (Auto) Baso # (Auto) Abs Immat Gran (auto) Absolute Neuts (auto) Absolute Nucleated RBC Nucleated RBC % (auto) Smear Tech's Comments PT INR APTT D-Dimer Sodium Potassium Chloride Carbon Dioxide Anion Gap BUN Creatinine Estim Creat Clear Calc Estimated GFR POC Glucose Random Glucose Lactic Acid Calcium Ferritin Total Bilirubin AST ALT Alkaline Phosphatase Lactate Dehydrogenase Troponin I High Sens C-Reactive Protein B-Natriuretic Peptide Total Protein Albumin Procalcitonin Urine Color YELLOW Urine Appearance CLEAR Urine pH 5.5 Ur Specific [place] >= 1.030 H Urine Protein TRACE Urine Glucose (UA) NEG Urine Ketones NEG Urine Blood 2+ H Urine Nitrite NEG Ur Leukocyte Esterase NEG Urine RBC 15-29 H Urine WBC 0 Ur Squamous Epith Cells NONE Urine Bacteria 1+ Coronavirus (PCR) NEGATIVE COVID-19 ([facility]) Negative COVID-19 Clin Com See Note Influenza Type A (PCR) NEGATIVE Influenza Type B (PCR) NEGATIVE RSV RNA Qual (PCR) NEGATIVE 11/22/20 11/22/20 11/22/20 19:31 19:31 19:31 WBC RBC Hgb Hct MCV MCH MCHC RDW Plt Count MPV Immature Gran % (Auto) Neut % (Auto) Lymph % (Auto) [place] % (Auto) Eos % (Auto) Baso % (Auto) Lymph # (Auto) [place] # (Auto) Eos # (Auto) Baso # (Auto) Abs Immat Gran (auto) Absolute Neuts (auto) Absolute Nucleated RBC Nucleated RBC % (auto) Smear Tech's Comments PT INR APTT D-Dimer Sodium Potassium Chloride Carbon Dioxide Anion Gap BUN Creatinine Estim Creat Clear Calc Estimated GFR POC Glucose Random Glucose Lactic Acid 1.1 Calcium Ferritin Total Bilirubin AST ALT Alkaline Phosphatase Lactate Dehydrogenase Troponin I High Sens 19.5 C-Reactive Protein B-Natriuretic Peptide 196 H Total Protein Albumin Procalcitonin Urine Color Urine Appearance Urine pH Ur Specific [place] Urine Protein Urine Glucose (UA) Urine Ketones Urine Blood Urine Nitrite Ur Leukocyte Esterase Urine RBC Urine WBC Ur Squamous Epith Cells Urine Bacteria Coronavirus (PCR) COVID-19 ([facility]) COVID-19 Clin Com Influenza Type A (PCR) Influenza Type B (PCR) RSV RNA Qual (PCR) 11/22/20 11/22/20 11/22/20 19:31 19:31 19:32 WBC 8.0 RBC 3.07 L Hgb 10.2 L Hct 31.7 L MCV 103.3 H MCH 33.2 H MCHC 32.2 RDW 15.0 Plt Count 296 MPV 10.6 Immature Gran % (Auto) 0.5 H Neut % (Auto) 69.5 Lymph % (Auto) 22.5 [place] % (Auto) 5.8 Eos % (Auto) 1.4 Baso % (Auto) 0.3 Lymph # (Auto) 1.8 [place] # (Auto) 0.5 Eos # (Auto) 0.1 Baso # (Auto) 0.0 Abs Immat Gran (auto) 0.04 H Absolute Neuts (auto) 5.6 Absolute Nucleated RBC 0.000 Nucleated RBC % (auto) 0.0 Smear Tech's Comments PT INR APTT D-Dimer Sodium Potassium Chloride Carbon Dioxide Anion Gap BUN Creatinine Estim Creat Clear Calc Estimated GFR POC Glucose Random Glucose Lactic Acid Calcium Ferritin 42 Total Bilirubin AST ALT Alkaline Phosphatase Lactate Dehydrogenase Troponin I High Sens C-Reactive Protein B-Natriuretic Peptide Total Protein Albumin Procalcitonin 0.03 Urine Color Urine Appearance Urine pH Ur Specific [place] Urine Protein Urine Glucose (UA) Urine Ketones Urine Blood Urine Nitrite Ur Leukocyte Esterase Urine RBC Urine WBC Ur Squamous Epith Cells Urine Bacteria Coronavirus (PCR) COVID-19 ([facility]) COVID-19 Clin Com Influenza Type A (PCR) Influenza Type B (PCR) RSV RNA Qual (PCR) 11/22/20 11/22/20 11/23/20 19:32 19:32 07:04 WBC 6.1 RBC 3.00 L Hgb 9.8 L Hct 30.1 L MCV 100.3 H MCH 32.7 MCHC 32.6 RDW 14.7 Plt Count 286 MPV 10.6 Immature Gran % (Auto) 0.3 Neut % (Auto) 89.2 H Lymph % (Auto) 8.7 L [place] % (Auto) 1.6 L Eos % (Auto) 0.0 Baso % (Auto) 0.2 Lymph # (Auto) 0.5 L [place] # (Auto) 0.1 Eos # (Auto) 0.0 Baso # (Auto) 0.0 Abs Immat Gran (auto) 0.02 Absolute Neuts (auto) 5.4 Absolute Nucleated RBC 0.000 Nucleated RBC % (auto) 0.0 Smear Tech's Comments VERIFIED PT 13.4 H INR 1.1 APTT 30.2 D-Dimer 353 Sodium 139 Potassium 5.0 Chloride 103 Carbon Dioxide 28 Anion Gap 13 BUN 27 H Creatinine 1.25 Estim Creat Clear Calc 48.3 Estimated GFR 55 POC Glucose Random Glucose 117 H Lactic Acid Calcium 8.3 L Ferritin Total Bilirubin 0.5 AST 22 ALT 25 Alkaline Phosphatase 176 H Lactate Dehydrogenase 279 H Troponin I High Sens C-Reactive Protein 0.19 B-Natriuretic Peptide Total Protein 6.6 Albumin 3.8 Procalcitonin Urine Color Urine Appearance Urine pH Ur Specific [place] Urine Protein Urine Glucose (UA) Urine Ketones Urine Blood Urine Nitrite Ur Leukocyte Esterase Urine RBC Urine WBC Ur Squamous Epith Cells Urine Bacteria Coronavirus (PCR) COVID-19 ([facility]) COVID-19 Clin Com Influenza Type A (PCR) Influenza Type B (PCR) RSV RNA Qual (PCR) 11/23/20 11/23/20 11/23/20 07:04 07:04 07:24 WBC RBC Hgb Hct MCV MCH MCHC RDW Plt Count MPV Immature Gran % (Auto) Neut % (Auto) Lymph % (Auto) [place] % (Auto) Eos % (Auto) Baso % (Auto) Lymph # (Auto) [place] # (Auto) Eos # (Auto) Baso # (Auto) Abs Immat Gran (auto) Absolute Neuts (auto) Absolute Nucleated RBC Nucleated RBC % (auto) Smear Tech's Comments PT INR APTT D-Dimer Sodium 136 Potassium 4.3 Chloride 102 Carbon Dioxide 26 Anion Gap 12 BUN 27 H Creatinine 1.26 Estim Creat Clear Calc 47.9 Estimated GFR 54 POC Glucose 179 H Random Glucose 171 H D Lactic Acid Calcium 8.4 Ferritin Total Bilirubin AST ALT Alkaline Phosphatase Lactate Dehydrogenase Troponin I High Sens 40.7 H D C-Reactive Protein B-Natriuretic Peptide Total Protein Albumin Procalcitonin Urine Color Urine Appearance Urine pH Ur Specific [place] Urine Protein Urine Glucose (UA) Urine Ketones Urine Blood Urine Nitrite Ur Leukocyte Esterase Urine RBC Urine WBC Ur Squamous Epith Cells Urine Bacteria Coronavirus (PCR) COVID-19 ([facility]) COVID-19 Clin Com Influenza Type A (PCR) Influenza Type B (PCR) RSV RNA Qual (PCR) EKG shows normal sinus rhythm with normal EKG Imaging Radiologist's impression: Impressions Chest X-Ray 11/22/20 17:36 IMPRESSION: Findings suggestive of CHF pulmonary vascular congestion and small effusions. Infectious etiology for infiltrate, especially at the right base, cannot be excluded. Head CT 11/22/20 17:46 IMPRESSION: No acute intracranial pathology. Chest CT 11/22/20 20:35 IMPRESSION: CHF with bilateral pleural effusions and bilateral lower lobe atelectasis. Assessment and Plan (1) Dyspnea: Status: Acute Patient presents with shortness of breath. Chest x-ray finding congestive pulmonary venous congestion with minimally elevated BNP. Clinically today does not appear to be in any significant heart failure. Most likely shortness of breath related to bilateral atelectasis. It incentive spirometry needs to be provided. Continue treat underlying medical condition including the UTI poss ibly. Can switch to p.o. Lasix 20 mg daily. Echocardiogram can be obtained. Blood pressure is well optimized at current time. Continue current therapy. No further cardiac recommendation at this point time. Will sign of the case. Procedures Date of Service Date of Service: 11/23/20
--- NOTE | 2020-11-23 12:45 | MHC.CM.PN ---
REFERRALS MADE FOR [facility], JARON, ALIA JONES. DISCHARGE PLAN: HOME W/SERVICES VS STR.
[2020-11-23 12:59] LABS: Glucose, Whole Blood 93 mg/dL (60-115)
--- NOTE | 2020-11-23 16:25 | PC.NURSE ---
900CC OF URINARY OUTPUT RECORDED
--- NOTE | 2020-11-23 16:43 | HO.PM.IMPN ---
Subjective Subjective Date of Service: 11/23/20 Interval History: Seen in follow-up for shortness of breath thought to be related to atelectasis rather than caught failure. Review of Systems He looks rather comfortable, no chest pain or shortness of breath at this time no other complaint. Physical Exam Vital Signs: Vital Signs: Last Vital Signs Temp 98.1 F 11/23/20 10:18 Pulse 85 11/23/20 10:18 Resp 16 11/23/20 10:18 BP 116/55 L 11/23/20 10:18 Pulse Ox 94 11/23/20 10:18 Body Mass Index 41.2 General: AO X 2, no acute distress Resp: CTA bilateral CVS: S1,S2,RRR, no edema GI: +BS, NT, no distention Skin: No rash Neuro: motor grossly intact Psych: appropriate affect Objective Data Current Medications Generic Name Dose Route Start Last Admin Trade Name Freq PRN Reason Stop Dose Admin Acetaminophen 650 mg 11/23/20 02:31 Acetaminophen 325 Mg Tablet PO Q6H PRN Pain, Mild (Pain Scale 1-3) Atorvastatin Calcium 20 mg 11/23/20 21:00 Atorvastatin Calcium 20 Mg Tablet PO BEDTIME TOMMY Docusate Sodium 100 mg 11/23/20 02:31 Docusate Sodium 100 Mg Capsule PO DAILY PRN Constipation Furosemide 40 mg 11/23/20 08:00 11/23/20 16:21 Furosemide 40 Mg/4 Ml Vial IVPUSH 40 mg BID@0800,1700 TOMMY Administration Protocol Heparin Sodium (Porcine) 5,000 unit 11/23/20 03:00 11/23/20 16:05 Heparin Sodium,Porcine 5,000 Unit/Ml Vial SUBCUT 5,000 unit Q12H TOMMY Administration Hydrochlorothiazide 25 mg 11/23/20 09:00 11/23/20 08:31 Hydrochlorothiazide 25 Mg Tablet PO 25 mg DAILY TOMMY Administration Insulin Human Lispro 0 unit 11/23/20 07:30 11/23/20 13:07 Insulin Lispro 100 Unit/Ml 3 Ml Vial SUBCUT Not Given QIDACHS [facility] Protocol Levothyroxine Sodium 125 mcg 11/23/20 06:30 11/23/20 08:31 Levothyroxine Sodium 125 Mcg Tablet PO 125 mcg DAILY@0630 TOMMY Administration Lisinopril 20 mg 11/23/20 09:00 11/23/20 08:30 Lisinopril 20 Mg Tablet PO 20 mg DAILY TOMMY Administration Metoprolol Succinate 100 mg 11/23/20 09:00 11/23/20 08:27 Metoprolol Succinate Er 100 Mg Tab.Er.24h PO 100 mg DAILY TOMMY Administration Protocol Non-Formulary Medication 2 puff 11/23/20 09:00 Fluticasone Propionate [Flovent Hfa] INHALE BID TOMMY Ondansetron HCl 4 mg 11/23/20 02:31 Ondansetron Hcl 4 Mg/2 Ml Vial IVPUSH Q8H PRN Nausea and Vomiting Sodium Chloride 3 ml 11/23/20 02:31 11/23/20 16:21 0.9 % Sodium Chloride Flush 3 Ml Syringe IVFLUSH 3 ml QSHIFT TOMMY Administration Tramadol HCl 50 mg 11/23/20 02:31 11/23/20 11:12 Tramadol Hcl 50 Mg Tablet PO 50 mg Q12H PRN Administration pain Labs CBC & Chem 7: 11/23/20 07:04 11/23/20 07:04 Assessment and Plan (1) New onset of congestive heart failure: Status: Acute (2) Dyspnea: Status: Acute (3) Altered mental status: Status: Acute (4) Hematuria: Status: Acute Assessment and Plan: 85-year-old male with past medical history of asthma presents to the hospital with shortness of breath found to have elevated BNP as well as evidence of CHF on imaging # dyspnea, no clincal evidence acute heart failure, sob likely related to atelectasis. Incentive spiromety, hold iv lasix. cardiology input noted. # hematuria - no UTI - consult Urology # altered mental status - patient family per report the patient has been progressively more confused and possible has now underlying dementia - has an appointment outpatient for evaluation with neurologist - no evidence of acute infection at this time - monitor mentation # diabetes mellitus - low-dose sliding scale insulin - diabetic diet DVT prophylaxis: Heparin subQ Co status: Full code according to the family
[2020-11-23 21:14] LABS: Glucose, Whole Blood 131 mg/dL (60-115)
[2020-11-24] MEDS: 0.9 % Sodium Chloride Flush 3 ML SYRINGE IVFLUSH ×3 (01:29→14:03)
[2020-11-24] MEDS: Acetaminophen 325 MG TABLET 650 MG PO (01:54)
[2020-11-24] MEDS: Heparin Sodium,Porcine 5,000 UNIT/ML VIAL 5000 UNIT SUBCUT ×2 (01:58→14:03)
[2020-11-24 04:00] VITALS: BP 129/64; PULSE 77; RESP 20; TEMP 36.6; O2SAT 92
[2020-11-24 07:15] LABS: Glucose, Whole Blood 114 mg/dL (60-115)
[2020-11-24 07:29] VITALS: BP 152/72; PULSE 73; RESP 19; TEMP 36.4; O2SAT 92
[2020-11-24] MEDS: Furosemide 40 MG/4 ML VIAL IVPUSH (08:27)
[2020-11-24 08:28] VITALS: BP 152/72; PULSE 73
[2020-11-24] MEDS: hydroCHLOROthiazide 25 MG TABLET PO (08:28)
[2020-11-24] MEDS: Metoprolol Succinate ER 100 MG TAB.ER.24H PO (08:28)
--- NOTE | 2020-11-24 08:48 | P.PNIM_ITS ---
Subjective Subjective Date of Service: 11/24/20 Interval History: Seen in follow-up for shortness of breath thought to be related to atelectasis rather than caught failure. Review of Systems He looks rather comfortable, no chest pain or shortness of breath at this time no other complaint, no hematuria Physical Exam Vital Signs: Vital Signs: Last Vital Signs Temp 97.5 F 11/24/20 07:29 Pulse 73 11/24/20 08:28 Resp 19 11/24/20 07:29 BP 152/72 H 11/24/20 08:28 Pulse Ox 92 11/24/20 07:29 Body Mass Index 41.2 General: AO X 2, no acute distress Resp: CTA bilateral CVS: S1,S2,RRR GI: +BS, NT, no distention Skin: No rash Neuro: motor grossly intact Psych: appropriate affect Objective Data Current Medications Generic Name Dose Route Start Last Admin Trade Name Freq PRN Reason Stop Dose Admin Acetaminophen 650 mg 11/23/20 02:31 11/24/20 01:54 Acetaminophen 325 Mg Tablet PO 650 mg Q6H PRN Administration Pain, Mild (Pain Scale 1-3) Atorvastatin Calcium 20 mg 11/23/20 21:00 11/23/20 22:48 Atorvastatin Calcium 20 Mg Tablet PO Not Given BEDTIME [facility] Docusate Sodium 100 mg 11/23/20 02:31 Docusate Sodium 100 Mg Capsule PO DAILY PRN Constipation Furosemide 40 mg 11/23/20 08:00 11/24/20 08:27 Furosemide 40 Mg/4 Ml Vial IVPUSH 40 mg BID@0800,1700 [facility] Administration Protocol Heparin Sodium (Porcine) 5,000 unit 11/23/20 03:00 11/24/20 01:58 Heparin Sodium,Porcine 5,000 Unit/Ml Vial SUBCUT 5,000 unit Q12H TOMMY Administration Hydrochlorothiazide 25 mg 11/23/20 09:00 11/24/20 08:28 Hydrochlorothiazide 25 Mg Tablet PO 25 mg DAILY TOMMY Administration Insulin Human Lispro 0 unit 11/23/20 07:30 11/24/20 08:26 Insulin Lispro 100 Unit/Ml 3 Ml Vial SUBCUT Not Given QIDACHS [facility] Protocol Levothyroxine Sodium 125 mcg 11/23/20 06:30 11/24/20 06:30 Levothyroxine Sodium 125 Mcg Tablet PO Not Given DAILY@0630 [facility] Lisinopril 20 mg 11/23/20 09:00 11/24/20 08:28 Lisinopril 20 Mg Tablet PO 20 mg DAILY [facility] Administration Metoprolol Succinate 100 mg 11/23/20 09:00 11/24/20 08:28 Metoprolol Succinate Er 100 Mg Tab.Er.24h PO 100 mg DAILY TOMMY Administration Protocol Non-Formulary Medication 2 puff 11/23/20 09:00 Fluticasone Propionate [Flovent Hfa] INHALE BID [facility] Ondansetron HCl 4 mg 11/23/20 02:31 Ondansetron Hcl 4 Mg/2 Ml Vial IVPUSH Q8H PRN Nausea and Vomiting Sodium Chloride 3 ml 11/23/20 02:31 11/24/20 08:26 0.9 % Sodium Chloride Flush 3 Ml Syringe IVFLUSH 3 ml QSHIFT [facility] Administration Tramadol HCl 50 mg 11/23/20 02:31 11/23/20 11:12 Tramadol Hcl 50 Mg Tablet PO 50 mg Q12H PRN Administration pain Labs CBC & Chem 7: 11/23/20 07:04 11/23/20 07:04 Microbiology Microbiology Results: Microbiology 11/22/20 19:31 Blood - Venous Blood Culture - Preliminary No growth after 24 hours. 11/22/20 19:31 Blood - Venous Blood Culture - Preliminary No growth after 24 hours. Assessment and Plan (1) New onset of congestive heart failure: Status: Acute (2) Dyspnea: Status: Acute (3) Altered mental status: Status: Acute (4) Hematuria: Status: Acute Assessment and Plan: 85-year-old male with past medical history of asthma presents to the hospital with shortness of breath found to have elevated BNP as well as evidence of CHF on imaging # dyspnea, no clincal evidence acute heart failure, sob likely related to atelectasis. Incentive spiromety PRN, hold iv lasix. cardiology input noted. # hematuria - no UTI - pending Urology # altered mental status - patient family per report the patient has been progressively more confused and possible has now underlying dementia - has an appointment outpatient for evaluation with neurologist - no evidence of acute infection at this time - monitor mentation # diabetes mellitus - low-dose sliding scale insulin - diabetic diet DVT prophylaxis: Heparin subQ Co status: Full code according to the family i PT evaland home tomorrow
[2020-11-24 11:07] LABS: Glucose, Whole Blood 159 mg/dL (60-115)
[2020-11-24] MEDS: Insulin Lispro 100 UNIT/ML 3 ML VIAL SUBCUT (11:17)
[2020-11-24 11:39] VITALS: BP 115/60; PULSE 70; RESP 18; TEMP 36.6; O2SAT 97
[2020-11-24 15:19] VITALS: BP 124/62; PULSE 73; RESP 20; TEMP 36.7; O2SAT 95
--- NOTE | 2020-11-24 15:25 | PC.NURSE ---
1500 Farias removed per MD verbal order. Will continue to monitor and assess.
[2020-11-24 16:18] LABS: Glucose, Whole Blood 105 mg/dL (60-115)
[2020-11-24 19:19] VITALS: BP 112/63; PULSE 73; RESP 19; TEMP 36.2; O2SAT 96
[2020-11-24 19:43] LABS: CDIFF Ag Negative (Negative); CDIFF Internal ctrl Dots and bkg OK (V); CDiff Toxin Negative (Negative)
[2020-11-24 20:14] LABS: Glucose, Whole Blood 125 mg/dL (60-115)
[2020-11-24] MEDS: Atorvastatin Calcium 20 MG TABLET PO (20:29)
[2020-11-25] VITALS (7 sets, daily range): BP systolic 108–132; BP diastolic 53–67; PULSE 68–78; RESP 18–20; TEMP 36.1–37.2; O2SAT 93–97; BMI 41.2
[2020-11-25] MEDS: 0.9 % Sodium Chloride Flush 3 ML SYRINGE IVFLUSH ×3 (00:08→15:27)
[2020-11-25] MEDS: Heparin Sodium,Porcine 5,000 UNIT/ML VIAL 5000 UNIT SUBCUT ×2 (02:14→15:26)
--- NOTE | 2020-11-25 02:31 | CA_ITS ---
Transthoracic Echocardiogram Patient (Last, First, Middle): Fermin SantoyoVivolio, Gender: Male Date of : 1935 Age: 85 Procedure Date: 11/25/2020 Procedure Type: Transthoracic Echocardiogram Location: [facility] [place] Height: 162.56 cm Weight: 108.86 kg BSA: 2.11 m2 Heart Rate: bpm BP: 108 / 54 mmHg Stage[employer] Professor: STACEY Referring MD: Yesy Servin MD Symptoms: chf Study Quality: Fair/Contrast ECG Rhythm: Sinus Conclusions: - The left ventricular systolic function is normal. The visually estimated ejection fraction is between 55-60%. - No obvious valvular pathology seen on this study. Findings Procedure Information The patient receives contrast. Left Ventricle Normal left ventricular cavity size. There is normal left ventricular wall thickness. The left ventricular systolic function is normal. The visually estimated ejection fraction is between 55-60%. There is no evidence of regional wall motion abnormalities. E/E prime ratio is between 8 and 15 consistent with indeterminate filling pressures. Evidence suggests grade I (mild) diastolic dysfunction. Right Ventricle Normal right ventricular cavity size and systolic function. Atria The left atrium is normal in size. The right atrium is normal in size. Aortic Valve There is a normal trileaflet aortic valve. There is mild calcification of the aortic valve. There is no aortic valve stenosis. There is no aortic valve regurgitation. Mitral Valve The mitral valve appears normal. There is no mitral valve regurgitation. There is no mitral valve stenosis. Pulmonic Valve The pulmonic valve was not well visualized. Tricuspid Valve There is trace tricuspid valve regurgitation. The pulmonary artery systolic pressure is normal. Great Vessels The aortic annulus, sinuses of valsalva, and asc aorta are normal in size. Venous The inferior vena cava is normal in size and collapses greater than 50% with inspiration. Pericardium/Pleural There is no evidence of pericardial effusion. Prior Study Comparison No prior study available for comparison. Recommendations, Care & Conclusions No obvious valvular pathology seen on this study. Measurements 2D Linear Measurements IVSd: 0.95 0.6-0.9/0.6-1.0 cm LVIDd: 3.82 3.9-5.3/4.2-5.9 cm LVIDd Index: 1.81 2.4-3.2/2.2-3.1 cm/m2 LVIDs: 2.80 2.0-3.6 cm LVPWd: 0.99 0.7-1.1 cm Ao Root: 3.30 2.1-3.5 cm LA Diam: 3.20 2.7-3.8/3.0-4.0 cm LAIDs Index: 1.52 1.5-2.3 cm/m2 LV Mass: 141.19 67-162/88-224 g LV Mass Index: 66.91 43-95/49-115 g/m2 LVOT Diam: 2.00 3.0+(-)1.3 cm 2D Systolic Function EF 4C: 53.20 >55% EF 2C: 59.60 >55% EF BiP: 56.70 >55% Mitral Valve MV Pk E: 0.66 MV PK A: 0.79 MV Decel Time: 254.00 E/A: 0.80 E'Lateral: 5.87 E'Medial: 4.46 E/E' Med: 14.80 E/E' Lat: 11.30 PHT: 74.00 MVA PHT: 2.97 Decel Stanton: 2.61 Aortic Valve AoV Pk Matthew: 1.58 AoV Mn Matthew: 1.11 AoV VTI: 0.30 AoV Pk Grad: 10.00 Aov Mn Grad: 5.00 GARRET Cont.VTI: 1.63 LVOT LVOT Pk Matthew: 0.84 LVOT Mn Matthew: 0.53 LVOT VTI: 0.16 LVOT Pk Grad: 3.00 LVOT Mn Grad: 1.00 LVOT Diam: 2.00 LVOT Area: 3.14 Diastolic Function MV Pk E: 0.66 MV Pk A: 0.79 E/A: 0.80 E'Medial: 4.46 E/E' Med: 14.80 E' Laterial: 5.87 E/E' Lat: 11.30 Tricuspid Valve TR Pk Matthew: 1.20 TR Pk Grad: 6.00 RA Press: 3.00 RVSP: 9.00 Great Vessels Aorta Ao Root-2D: 3.30 2.0-3.7 cm Ao Asc: 2.80 2.1-3.4 cm Updated in Other Vendor System with Status of Final Ede Wei MD electronically signed on 11/25/2020 12:36:11 PM with status of Final
[2020-11-25] MEDS: Levothyroxine Sodium 125 MCG TABLET PO (05:32)
[2020-11-25 07:24] LABS: Glucose, Whole Blood 89 mg/dL (60-115)
[2020-11-25] MEDS: Metoprolol Succinate ER 100 MG TAB.ER.24H PO (07:57)
[2020-11-25] MEDS: hydroCHLOROthiazide 25 MG TABLET PO (07:57)
[2020-11-25 10:39] LABS: MANUAL DIFF FLAG NO
[2020-11-25 10:42] LABS: Basophils Percent Auto 0.2 % (0-2); Eosinophils Absolute Auto 0.1 X10*3/uL (0.0-0.4); Eosinophils Percent Auto 1.1 % (0-4); Hematocrit 32.1 % (42-52); Hemoglobin 10.4 g/dl (14.0-18.0); Imm Gran Abs Auto 0.03 X10*3/uL (0.00-0.03); Imm Gran Pct Auto 0.5 % (0.0-0.4); Lymphocytes Absolute Auto 1.5 X10*3/uL (1.2-4.9); Lymphocytes Percent Auto 22.7 % (20-40); Mean Corpuscular HGB Conc 32.4 g/dl (31.0-36.0); Mean Corpuscular Hemoglobin 32.1 pg (27.0-33.0); Mean Corpuscular Volume 99.1 fL (80-98); Mean Platelet Volume 10.5 fL (9.4-12.4); Monocytes Absolute Auto 0.5 X10*3/uL (0.1-1.2); Monocytes Percent Auto 7.2 % (2-11); Neutrophils Absolute Auto 4.5 X10*3/uL (2.0-8.3); Neutrophils Percent Auto 68.3 % (45-73); Platelet Count 294 X10*3/uL (160-400); Red Blood Count 3.24 X10*6/uL (4.60-5.80); Red Cell Distribution Width 14.7 % (11.0-16.0); White Blood Count 6.6 X10*3/uL (4.8-10.8)
--- NOTE | 2020-11-25 11:56 | MHC.CM.PN ---
dc plan pending pt eval home with services vs str
[2020-11-25 12:19] LABS: Glucose, Whole Blood 100 mg/dL (60-115)
--- NOTE | 2020-11-25 12:44 | MHC.CDI.CONC ---
CDI Concurrent Query Service Date: 01/25/21 Documentation Clarification: Please clarify if you are treating a probable/suspected/likely or confirmed: BMI Morbid obesity Please specify if known Provider Response: Morbid Obesity PLEASE DO NOT DELETE/MODIFY EXISTING CONTENT Additional information is needed in order to code to the highest accuracy and appropriate Severity of Illness (SOI). Please clarify the information noted below in your progress notes and discharge summary. Risk Factors/Clinical Indicators/Treatments BMI 41.2 Ed: overweight Nutrition notes morbidly obese CDS: Lucie Recinos [facility], CDIS Contact Number: [phone] Please Review the information above and exercise your independent professional judgment in responding to the query. If you concur, pleas document in the PROGRESS NOTES and DISCHARGE SUMMARY. If you do not agree with the query, please document in the query above. THIS QUERY IS PART OF THE PERMANENT MEDICAL RECORD
--- NOTE | 2020-11-25 15:14 | MHC.CM.PN ---
physical therapy has recommended str but if family can provide adequate care at home pt can go home with vna spoke with pts family called sim hendrix [phone] who had a family translate they want to take pt home not a rehab..called and spoke with rober [phone] /jorge who will approve a vna referral to [facility] await their avaliabilty
--- NOTE | 2020-11-25 15:35 | P.DS_ITS ---
DS: Providers Provider Date of Service: 11/25/20 Date of admission: 11/22/20 22:16 Date of discharge: 11/25/20 Primary care physician: Unknown Physician Admitting clinician: Yesy Servin Attending physician on admission: Yesy Servin Consults: 11/23/20 02:31 Consult to Cardiology Routine Consulting Provider: Dimas Patel Reason for consultation: chf Has provider been notified: No Consult to Urology Routine Consulting Provider: Angel Victoria Reason for consultation: hematuria Has provider been notified: No [facility] DS: Diagnosis Discharge Diagnosis (1) New onset of congestive heart failure: Status: Acute (2) Dyspnea: Status: Acute (3) Altered mental status: Status: Acute (4) Hematuria: Status: Acute DS: Medications Discharge Medications Home Medications: Home Medications Medication Instructions Recorded Confirmed fluticasone propionate [Flovent 2 puff INHALATION BID 11/22/20 11/22/20 HFA] levothyroxine 125 mcg PO DAILY@0630 11/22/20 11/22/20 lisinopril-hydrochlorothiazide 1 tab PO DAILY 11/22/20 11/22/20 metformin 1,000 mg PO BIDWM 11/22/20 11/22/20 metoprolol succinate 100 mg PO DAILY 11/22/20 11/22/20 pioglitazone 15 mg PO DAILY 11/22/20 11/22/20 simvastatin 40 mg PO BEDTIME 11/22/20 11/22/20 tramadol 50 mg PO Q12H PRN 11/22/20 11/22/20 DS: Summary Hospital Course Hospital Course: HP as per admitting provider This is an 85-year-old with past medical history of asthma, diabetes, hypertension, HLD, hypothyroidism, colitis, and possible dementia who presents the hospital with complaints shortness of breath and altered mental status for the past 1 week. History is obtained mostly from EMR as well as ED PA/staff as patient is very confused, makes no sense with his answers and speaks Mongolian only. Even with the help of public health analyst he does not make any sense and does not answer questions appropriately. He is alert, on not oriented. According to the daughter patient at baseline is somewhat confused and his family been planning for evaluation for dementia. He has an appointment coming up with Neurology in 2 weeks however for the past 1 week he has been having a little confusion more than usual and complaining of shortness of breath and wheezing. I am unable to obtain full review of system is patient is confused On arrival to the ED for temp of 98?, pulse rate of 71, respiratory rate of 24, blood pressure 178/85, and satting 96% on room air. Patient did drop his oxygen to 88% on ambulation. Labs are significant for WBC count of 8.0, hemoglobin of 10.2, BUN of 27, creatinine of 1.25 which is around his baseline, alk phos of 176, BNP of 196, UA that is positive for blood and RBC, COVID negative, influenza negative. Chest x-ray as well as CT of the chest both demonstrate CHF with bilateral pleural effusions and bilateral lower lobe atelectasis with no evidence of consolidation. Patient will be admitted for further management of CHF. Past medical history as below, unable to obtain family or surgical history but patient lives with his daughter and no reported history of tobacco alcohol or illicit drugs at this time . Dyspnea. No evidence of heart failure, more related to atelectasis. No evidence of hypoxia or consolidation. Hematuria. No further evidence of bleeding. Can follow up with urology if needed. Stable CBC. Encephalopathy. Family reported recent work-up for dementia, following up as outpatient with PCP and neurology. Attending: Dr. Troy Time Spent with Patient Time attestation: Total time spent providing and/or coordinating discharge services: Discharge coordination time: Greater than 30 minutes Physical Exam Vital Signs: Vital Signs: Last Vital Signs Temp 98 F 11/25/20 15:05 Pulse 72 11/25/20 15:05 Resp 18 11/25/20 15:05 BP 117/56 L 11/25/20 15:05 Pulse Ox 97 11/25/20 15:05 Body Mass Index 41.2 Appearing in no acute distress head is normocephalic atraumatic eyes pupils are PERRLA sclera is anicteric mouth throat mucous membranes are intact and moist neck is supple no lymphadenopathy, no JVD noted lung sounds are clear to auscultation heart regular rate rhythm, clear S1, S2 positive bowel sounds, abdomen is soft, nontender neuro patient is alert x3, no focal deficits DS: Data Data Completed and Pending Labs on day of discharge: Laboratory Results - last 24 hr 11/24/20 11/24/20 11/24/20 16:10 17:57 20:10 WBC RBC Hgb Hct MCV MCH MCHC RDW Plt Count MPV Immature Gran % (Auto) Neut % (Auto) Lymph % (Auto) [place] % (Auto) Eos % (Auto) Baso % (Auto) Lymph # (Auto) [place] # (Auto) Eos # (Auto) Baso # (Auto) Abs Immat Gran (auto) Absolute Neuts (auto) Absolute Nucleated RBC Nucleated RBC % (auto) POC Glucose 105 125 H C. difficile Toxin A&B Negative C. difficile Antigen Negative C. difficile Interpret SEE NOTE 11/25/20 11/25/20 11/25/20 07:17 10:34 12:16 WBC 6.6 RBC 3.24 L Hgb 10.4 L Hct 32.1 L MCV 99.1 H MCH 32.1 MCHC 32.4 RDW 14.7 Plt Count 294 MPV 10.5 Immature Gran % (Auto) 0.5 H Neut % (Auto) 68.3 Lymph % (Auto) 22.7 [place] % (Auto) 7.2 Eos % (Auto) 1.1 Baso % (Auto) 0.2 Lymph # (Auto) 1.5 [place] # (Auto) 0.5 Eos # (Auto) 0.1 Baso # (Auto) 0.0 Abs Immat Gran (auto) 0.03 Absolute Neuts (auto) 4.5 Absolute Nucleated RBC 0.000 Nucleated RBC % (auto) 0.0 POC Glucose 89 100 C. difficile Toxin A&B C. difficile Antigen C. difficile Interpret Preliminary micro results at discharge 11/24/20 17:57 Stool Culture - Preliminary Stool Normal so far. 11/22/20 19:31 Blood Culture - Preliminary Blood - Venous No growth after 48 hours. 11/22/20 19:31 Blood Culture - Preliminary Blood - Venous No growth after 48 hours. Discharge Plan Discharge Anticipated Discharge Date/Time: 11/25/20 15:44 Patient Disposition: Home Health Service Referrals: Physician,Unknown [Primary Care Provider] - Discharge Medications: Continued pioglitazone 15 mg tablet 15 mg PO DAILY RF: 0 metoprolol succinate 100 mg tablet extended release 24 hr 100 mg PO DAILY RF: 0 tramadol 50 mg tablet 50 mg PO Q12H PRN (Reason: pain) RF: 0 simvastatin 40 mg tablet 40 mg PO BEDTIME RF: 0 metformin 1,000 mg tablet 1,000 mg PO BIDWM RF: 0 levothyroxine 125 mcg tablet 125 mcg PO DAILY@0630 RF: 0 Flovent HFA 44 mcg/actuation HFA aerosol inhaler 2 puff inhalation BID RF: 0 lisinopril-hydrochlorothiazide 20-25 mg tablet 1 tab PO DAILY RF: 0 Discharge Orders: Discharge Order (Routine); Ordered 11/25/20 Ordered By: aSumya Espino Diet: advance to usual diet Activity on Discharge: As tolerated Stand Alone Forms: Patient Portal Discharge page Care Plan Goals: Avoid hospitalizations. Health Concerns: Dyspnea, resolved. Dementia. Follow up with neurologist and primary care provider. Plan of Treatment: Follow up with primary care doctor as needed.
--- NOTE | 2020-11-25 16:02 | P.F2F_ITS ---
Service Date Service Date: 11/25/20 Encounter Date of encounter: 11/25/20 Reasons for Services Reason for physical therapy: home safety and mobility and gait/transfer training MD Overseeing Care: Salomón Bright Homebound: Leaving the home is medically contraindicated at this time without the asist of a device and/or another person due th the listed conditions above and below. Homebound supporting statement: Patient is homebound due to unsteady gait, weakness and poor balance. Certification: Based on the above findings, I certify that this patient is confined to the home and needs intermittent [facility] care, physical therapy and/or speech therapy, or continues to need occupational therapy. The patient is under my care, and I have initiated the establishment of the plan of care. The patient will be followed by a physician who will periodically review the plan of care.
--- NOTE | 2020-11-25 16:11 | MHC.CM.PN ---
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
[2020-11-25 16:28] LABS: Glucose, Whole Blood 137 mg/dL (60-115)
== END 2020-11-25 17:45 | disposition home health service (06) | DRG 206 ==
LOC: HO.ED 17:25 → HO.EDOVER 22:23 → HO.IMC 11-23 19:38
PROVIDERS: Nurse Practitioner Acute Care; Nurse Practitioner Primary Care; Admitting Provider Internal Medicine; Emergency Provider Emergency Medicine; Visit Provider Internal Medicine
DX: J98.11 Atelectasis (principal); Z68.41 Body mass index [BMI] 40.0-44.9, adult; G93.40 Encephalopathy, unspecified; E66.01 Morbid (severe) obesity due to excess calories; R31.9 Hematuria, unspecified; Z20.822 Contact with and (suspected) exposure to COVID-19; Z79.51 Long term (current) use of inhaled steroids; E11.9 Type 2 diabetes mellitus without complications; Z79.890 Hormone replacement therapy; Z79.891 Long term (current) use of opiate analgesic; Z79.899 Other long term (current) drug therapy
CPT/HCPCS: 0241U; 36415; 70450; 71045; 71250; 80048; 80053; 81001; 82728; 82947; 83605; 83615; 83880; 84145; 84484; 85025; 85379; 85610; 85730; 86140; 87040; 87045; 87046; 87324; 87449; 87635; 93005; 93306; 94640; 94644; 96365; 96375; 97162; 99285; J0696; J1940; J2930; Q9957

== ENCOUNTER → 2021-01-23 09:10 | Outpatient (BNVA) | payer MEDICARE, SELFPAY | PROVIDERS: PCP Internal Medicine; Visit Provider Urology | DX: R06.02 Shortness of breath (principal); N40.1 Benign prostatic hyperplasia with lower urinary tract symptoms; R39.12 Poor urinary stream; R35.1 Nocturia; N13.8 Other obstructive and reflux uropathy | CPT/HCPCS: 99202; 99212 ==

== ENCOUNTER 2021-04-28 15:51 | Outpatient (REF) | payer MEDICARE, SELFPAY ==
--- NOTE | ~2021-04-28 | US_ITS ---
EXAMINATION: US RETROPERITONEAL LIMITED (RENAL ONLY) CLINICAL INFORMATION: BPH with lower urinary tract symptoms. COMPARISON: Previous CT of the abdomen and pelvis October 2019 TECHNIQUE: Grayscale and color imaging of the kidneys and bladder. Exam is limited due to patient body habitus. FINDINGS: RIGHT KIDNEY: 9.7 x 4.8 x 4.8 cm (SAG x AP x TRV). The kidney is normal in size, contour, and echogenicity. Renal cortical thickness is normal. There is a 3.5 cm cyst in the midpole. No calculi or mass. No hydronephrosis. LEFT KIDNEY: 9.4 x 5.4 x 5.5 cm (SAG x AP x TRV). The kidney is normal in size, contour, and echogenicity. Renal cortical thickness is normal. No calculi or focal parenchymal lesions. No hydronephrosis. The bladder is not optimally distended. Bladder volume measures 39 mL. US/US renal BI IMPRESSION: Very limited exam. Right renal cyst otherwise unremarkable renal ultrasound. Bladder not optimally distended and not evaluated.
== END 2021-04-28 15:52 | disposition home or self-care (01) ==
LOC: HO.US 15:51
PROVIDERS: Visit Provider Urology
DX: N20.0 Calculus of kidney (principal)
CPT/HCPCS: 76775

== ENCOUNTER 2023-08-09 17:47 | Inpatient (IN) | payer OTHER, SELFPAY ==
--- NOTE | ~2023-08-09 | CT_ITS ---
EXAMINATION: CT HEAD WITHOUT CONTRAST CLINICAL INFORMATION: Possible fall COMPARISON: Previous head CT October 2020 TECHNIQUE: Contiguous axial imaging was performed from the skull base to vertex without intravenous administration of contrast. This CT examination was performed using dose optimization techniques as appropriate, variously including the following: *Automated exposure control *Adjustment of mA and/or kV according to patient size (this includes techniques or standardized protocols for targeted exams where dose is matched to indication/reason for exam; i.e. extremities or head) *Use of iterative reconstruction technique DLP: 676 mGy-cm FINDINGS: There is no evidence of an extra-axial collection. There is no evidence of intra-axial or extra-axial hemorrhage. The ventricles and extra-axial CSF spaces are prominent suggestive of generalized atrophy. There is nonspecific periventricular white matter disease. No mass, mass effect or infarct is seen. No skull fracture. Visualized paranasal sinuses, mastoid air cells and middle ears are clear. CT/CT head/brain wo IV con IMPRESSION: No acute findings. Mild generalized atrophy and nonspecific periventricular white matter disease.
--- NOTE | ~2023-08-09 | XR_ITS ---
EXAMINATION: PORTABLE CHEST 1 VIEW CLINICAL INFORMATION: Pneumonia. COMPARISON: 11/22/2020. TECHNIQUE: Portable frontal view of the chest was obtained. FINDINGS: The lungs are well expanded. Coarsened appearing reticular markings are again seen bilaterally, similar to prior study. No focal infiltrate, effusion, overt edema, or pneumothorax. Cardiac and mediastinal silhouettes are within normal limits for technique. No acute bony abnormality seen. XR/XR chest 1V IMPRESSION: There are extensive chronic appearing changes again seen similar to the 2020 examination. A component of mild pulmonary edema would be difficult to exclude although the appearance is very similar to the prior study.
--- NOTE | ~2023-08-09 | CT_ITS ---
EXAMINATION: CT shoulder LT w IV con, CT abdomen pelvis w IV con, CT chest w IV con CLINICAL INFORMATION: Ecchymosis. Fractures, bleeding, abdominal distention, left shoulder/humerus bruising. hematoma?. COMPARISON: Chest x-ray from today. TECHNIQUE: Multidetector volumetric imaging was performed from the thoracic inlet through the pubic symphysis following administration of 100 ml Omnipaque 350 intravenous contrast. Sagittal and coronal reformatted images were obtained on the technologist's workstation. Thin slice coned-down images of the left shoulder were obtained with soft tissue and bony algorithms with sagittal and coronal reformatted images through the left shoulder. This CT examination was performed using dose optimization techniques as appropriate, variously including the following: *Automated exposure control *Adjustment of mA and/or kV according to patient size (this includes techniques or standardized protocols for targeted exams where dose is matched to indication/reason for exam; i.e. extremities or head) *Use of iterative reconstruction technique DLP: 2321 mGy-cm FINDINGS: CHEST: Lung: Layering small bilateral pleural effusions with associated dependent airspace changes more likely due to atelectasis. No significant pneumothorax. Mediastinum: Although degraded by extensive motion artifact, there is extensive vascular calcification within the aorta and coronary vessels. I do not appreciate any discrete mediastinal hematoma. Pericardium/Pleura: Small bilateral pleural effusions effusion. No pleural mass or thickening. No significant pericardial effusion Chest Wall/Axilla: Unfortunately the images are extensively motion degraded but there is soft tissue swelling in the presternal chest wall difficult to define further such motion degradation ABDOMEN/PELVIS: Peritoneal Space:Moderate volume of low-attenuation ascites. No obvious hemoperitoneum. No free air. Liver, Gallbladder, Biliary Tree: Nodular liver is seen with atrophy of the right lobe and compensatory hypertrophy of the left lobe and caudate lobe. The gallbladder is unremarkable with no evidence of radiopaque gallstones, gallbladder wall thickening, or obvious pericholecystic inflammatory changes. Pancreas: Unremarkable. Spleen: Unremarkable. Adrenal Glands: Unremarkable. Kidneys and Ureters: The kidneys are normal in size, shape, and attenuation. Bilateral simple appearing renal cysts are seen. No further evaluation of these is needed No hydronephrosis, hydroureter, or calculi seen. No perinephric stranding. Bladder: Unremarkable. Gastrointestinal Tract: A few scattered colonic diverticula are seen. No colonic wall thickening or pericolonic inflammatory change. Visualized small bowel unremarkable. Stomach is decompressed Abdominal Wall: Diffuse anasarca Lymphovascular Structures: Prominent vascular calcification within the aorta iliac system. No bulky adenopathy. Pelvic Viscera: Unremarkable. Left shoulder: Degenerative changes are seen in the acromioclavicular joint. There is a high riding humeral head consistent with chronic underlying rotator cuff disease. I do not appreciate any acute fracture or dislocation. Other [place] Structures: Visualized portion of the contralateral right shoulder demonstrates a very large right shoulder joint effusion but this is not well assessed on this study due to artifact. Multilevel degenerative changes in the spine Spine: Multilevel degenerative changes but no acute fracture or spondylolisthesis. Vertebral body height is preserved CT/CT abdomen pelvis w IV con IMPRESSION: 1. Although motion degraded study, there is soft tissue swelling in the presternal chest wall. I do not appreciate any acute bony abnormality. 2. Small bilateral pleural effusions with associated dependent airspace changes more likely due to atelectasis. 3. Cirrhotic appearing liver with moderate volume of ascites and diffuse anasarca. 4. Chronic appearing changes in the left shoulder with a high riding left humeral head consistent with chronic rotator cuff disease. 5. I do not appreciate any acute bony abnormality. There is a very large right shoulder joint effusion but this is not well assessed on this study.
--- NOTE | ~2023-08-09 | CT_ITS ---
EXAMINATION: CT CERVICAL SPINE WITHOUT CONTRAST CLINICAL INFORMATION: Possible fall COMPARISON: None available. TECHNIQUE: Axial images through the cervical spine without contrast. Sagittal and coronal reconstructions on the technologist workstation were performed. This CT examination was performed using dose optimization techniques as appropriate, variously including the following: *Automated exposure control *Adjustment of mA and/or kV according to patient size (this includes techniques or standardized protocols for targeted exams where dose is matched to indication/reason for exam; i.e. extremities or head) *Use of iterative reconstruction technique DLP: 517 mGy-cm FINDINGS: Bone alignment is normal. No fracture or dislocation. There is multilevel degenerative spondylosis and degenerative disc disease. There are degenerative changes at the C1 dens articulation. Prevertebral soft tissues are normal. There is bilateral carotid calcification. CT/CT cervical spine wo IV con IMPRESSION: Degenerative changes. No fracture or dislocation. Fleischner guidelines were followed.
--- NOTE | ~2023-08-09 | XR_ITS ---
EXAMINATION: XR ELBOW, RIGHT CLINICAL INFORMATION: Ecchymosis. Fracture. COMPARISON: None available. TECHNIQUE: AP, lateral, and oblique views of the right elbow. FINDINGS: No definitive large joint effusion. There are mild degenerative changes seen about the elbow but no acute fracture or dislocation is appreciated. Mild soft tissue swelling along the posterior aspect of the distal humerus. XR/XR elbow RT min 3V IMPRESSION: Mild soft tissue swelling but no acute fracture or dislocation. No large joint effusion. Mild degenerative changes.
[2023-08-09 17:54] VITALS: BP 118/84; BP 154/111; PULSE 81; PULSE 82; RESP 18; TEMP 36.6; O2SAT 88; O2SAT 89; BMI 13.7
[2023-08-09 18:02] VITALS: O2SAT 94
[2023-08-09 19:10] VITALS: BP 173/86; PULSE 74; RESP 20; TEMP 36.8; O2SAT 98
--- NOTE | 2023-08-09 19:13 | PC.NURSE ---
assumed care of pt
--- NOTE | 2023-08-09 19:18 | MHC.EDTECH ---
This tech took over care of patient at 1900,hourly rounds and vitals completed, patient repositioned to comfort and family at bedside.
[2023-08-09 19:31] LABS: INTERNATIONAL NORM RATIO 1.2 (0.9-1.1); Prothrombin Time 14.6 SEC (11.1-13.3)
[2023-08-09 19:33] LABS: Partial Thromboplastin Time 29.8 SEC (26.0-36.4)
--- NOTE | 2023-08-09 19:39 | ED.GENADULT ---
HPI - General Adult General Chief complaint: Altered Mental Status Stated complaint: AMS Time Seen by Provider: 08/09/23 18:16 Source: family (son) Mode of arrival: ambulatory Limitations: no limitations History of Present Illness HPI narrative: 88 yold male with pmh of dementia, HTN, Asthma, DM, Hyperlidemiea, brought to the ED for of evaluation bruising of left upper extremity, chest, and left elbow as discovered by medic. Family states also the past month patient has had increased visual hallucintations. Patient at baseline due to dementia he has hallucinations as per son, but it has increased this past month. Son denies patient falling, lila gamboa states he fell. Son states father mentstal status at baseline is confusions, waning mental status. Related Data Home Medications Medication Instructions Recorded Confirmed fluticasone propionate 44 2 puff inhalation BID 11/22/20 08/10/23 mcg/actuation HFA aerosol inhaler (Flovent HFA) levothyroxine 125 mcg tablet 125 mcg PO DAILY@0630 11/22/20 08/10/23 metoprolol succinate 100 mg 100 mg PO DAILY 11/22/20 08/10/23 tablet,extended release 24 hr simvastatin 40 mg tablet 40 mg PO BEDTIME 11/22/20 08/10/23 tramadol 50 mg tablet 50 mg PO Q12H PRN pain 11/22/20 08/10/23 blood sugar diagnostic #10 ea 01/23/21 08/10/23 lancets 33 gauge #100 ea 01/23/21 08/10/23 metformin 500 mg tablet,extended 500 mg PO BID 01/23/21 08/10/23 release 24 hr quetiapine 25 mg tablet 25 mg PO BEDTIME 01/23/21 08/10/23 Allergies Allergy/AdvReac Type Severity Reaction Status Date / Time No Known Allergies Allergy Verified 11/24/20 21:45 [No Known Allergies*] Review of Systems Review of Systems: increased hallucinations, ecchymosis of left upper extremity, right elbow, brusiing Yes all other systems are reviewed and are negative [facility] Past Medical History Medical History (Updated 08/10/23 @ 10:46 by Lizeth Chu) Asthma exacerbation New onset of congestive heart failure Arthritis Hypothyroidism Hyperlipidemia Hypertension Asthma Colitis Diabetes Social History Social History Household Members: Unknown / Unable to assess Household Members Other:: pt. with hx dementia, unable to assess Housing: Unknown / Unable to assess Unable to assess alcohol history related to: Unable to respond Patient Tobacco Use Status: Tobacco use Unknown service: No Current occupational status: unemployed and retired Physical Exam ED Vital Signs: Vital Signs - 24 hr 08/09/23 21:27 Temperature 98.2 F Pulse Rate 80 Respiratory Rate 17 Blood Pressure 186/94 H Pulse Oximetry 96 Oxygen Delivery Method Nasal Cannula Oxygen Flow Rate 2 BMI result Body Mass Index 13.7 [facility] Head: Yes normal to inspection, Yes No palpable skull fracture present, Yes normocephalic and Yes atraumatic Eyes General: appearance normal, both eyes and all related structures Neck Neck: Yes normal visual inspection, Yes full ROM, Yes no lymphadenopathy, Yes no meningeal signs, Yes trachea midline and Yes supple Chest Chest/axillae images: 1. ecchymosis/petechiase Resp Effort & Inspection: normal respiratory effort Auscultation: rales Cardio Jugular venous distension: no JVD Heart sounds: S1 normal heart sound present and S2 normal heart sound present GI Inspection: Yes normal to inspection and Yes distended General: Yes no CVA tenderness Back/Spine/Pelvis Back: no CVA tenderness and No back tenderness Skin Other: ecchymosis/petechiae of left shoulder left huuerus and right elbow Neuro Other: Baseline confusion. Baseline wax and wane status. negative for any neuro deficits. Negative facial droop or paralysis. Negative slurred speech General: no meningeal signs Extrem Other: positive for bilateral lower extremites swelling. Shoulder/upper arm images: 1. positive for ecchymosis. Negative for crepitus, tenderness, fullness, hotness, or deformity. motor/ nose/medical exam intact. 2. Positive ecchymoses negative for crepitus, tenderness, or deformity. Motor/neuro/vascular exam intact Psych Appearance: grossly normal, well kempt and not disheveled Medications Administered Generic Name Dose Route Start Last Admin Trade Name Freq PRN Reason Stop Dose Admin Acetaminophen 650 mg 08/09/23 22:35 08/10/23 15:43 Acetaminophen 325 Mg Tablet PO 650 mg Q6H PRN Administration Pain, Mild (Pain Scale 1-3) Atorvastatin Calcium 20 mg 08/10/23 21:00 08/10/23 19:40 Atorvastatin Calcium 20 Mg Tablet PO 20 mg BEDTIME TOMMY Administration Enoxaparin Sodium 30 mg 08/09/23 23:00 08/09/23 23:10 Enoxaparin Sodium 30 Mg/0.3 Ml Syringe SUBCUT 30 mg Q24H TOMMY Administration Furosemide 40 mg 08/10/23 09:00 08/10/23 08:21 Furosemide 40 Mg/4 Ml Vial IVPUSH 40 mg DAILY TOMMY Administration Protocol Insulin Human Lispro 0 unit 08/10/23 07:30 08/10/23 17:04 Insulin Lispro 100 Unit/Ml 3 Ml Vial SUBCUT Not Given QIDACHS TOMMY Protocol Quetiapine Fumarate 25 mg 08/10/23 21:00 08/10/23 19:40 Quetiapine Fumarate 25 Mg Tablet PO 25 mg BEDTIME TOMMY Administration Sodium Chloride 3 ml 08/10/23 00:00 08/10/23 15:40 0.9 % Sodium Chloride Flush 3 Ml Syringe IVFLUSH 3 ml QSHIFT TOMMY Administration Discontinued Medications Generic Name Dose Route Start Last Admin Trade Name Freq PRN Reason Stop Dose Admin Furosemide 40 mg 08/09/23 19:44 08/09/23 20:18 Furosemide 40 Mg/4 Ml Vial IVPUSH 08/09/23 19:45 40 mg STAT STA Administration Protocol Iohexol 100 ml 08/09/23 21:32 08/09/23 21:33 Iohexol 350 Mg/Ml 100 Ml Infus..Btl IV 08/09/23 21:33 100 ml ONCE ONE Administration Medical Decision Making Medical Decision Making [facility] Narrative: 88-year-old male with past medical history of dementia, diabetes, hypertension, and CHF presents to the ED for increased hallucinations for the past month and ecchymosis on left upper extremity, left-sided chest, and right elbow. Room air O2 saturation 80% patient placed on oxygen and given Lasix. BNP 914. Most likely will send patient for CT scan to make sure there is no chest injury due to bruising. Son denies any trauma. 12:00am: patient admitted for CHF ansicaria. Patient is stable. Case accepted Dr. Corado Differential Diagnosis Differential Diagnoses: The differential diagnosis associated with the presentation includes (CHF, UTI, liver failure, uremia, toxix encepholapthy, bleeding) Admission/Observation Consideration of admission/observation: Escalation of care including admission/observation considered Consult Healthcare Provider Management of the patient was discussed with: Hospitalist (Dr. Corado) Lab Data MDM Lab Attestation statement: I reviewed the patient's lab results. 08/10/23 05:13 08/10/23 05:13 Labs: Lab Results 08/09/23 08/09/23 08/09/23 Range/Units 19:09 19:57 20:46 WBC 5.4 (4.8-10.8) X10*3/uL RBC 3.36 L (4.60-5.80) X10*6/uL Hgb 10.7 L (14.0-18.0) g/dl Hct 32.7 L (42.0-52.0) % MCV 97.3 (80.0-98.0) fL MCH 31.8 (27.0-33.0) pg MCHC 32.7 (31.0-36.0) g/dl RDW 25.5 H (11.0-16.0) % Plt Count 202 (160-400) X10*3/uL MPV 11.3 (9.4-12.4) fL Immature Gran % (Auto) Cancelled Neut % (Auto) Cancelled Lymph % (Auto) Cancelled [place] % (Auto) Cancelled Eos % (Auto) Cancelled Baso % (Auto) Cancelled Lymph # (Auto) Cancelled [place] # (Auto) Cancelled Eos # (Auto) Cancelled Baso # (Auto) Cancelled Abs Immat Gran (auto) Cancelled Absolute Neuts (auto) Cancelled Absolute Nucleated RBC 0.020 H (0.0-0.012) X10*3/uL Nucleated RBC % (auto) 0.4 H (0.0-0.2) /100WBC Neutrophils % (Manual) 65 (45-73) % Band Neutrophils % 6 H (3-5) % Lymphocytes % (Manual) 24 (20-40) % Monocytes % (Manual) 4 (2-11) % Myelocytes % 1 % Abs Neuts (Manual) 3.8 (2.0-8.3) X10*3/uL Lymphocytes # (Manual) 1.3 (1.2-4.9) X10*3/uL Monocytes # (Manual) 0.2 (0.1-1.2) X10*3/uL Myelocytes # 0.1 X10*/uL Toxic Vacuolation PRESENT Platelet Estimate NORMAL (NORMAL) Plt Morphology Comment NORMAL RBC Morphology NOTED Polychromasia 1+ (0-2) /OIF Target Cells 1+ (5-14) /OIF Ovalocytes 1+ (5-14) /OIF Susan Cells 1+ (0-2) /OIF PT 14.6 H (11.1-13.3) SEC INR 1.2 H (0.9-1.1) APTT 29.8 (26.0-36.4) SEC Sodium 140 (135-145) mmol/L Potassium 4.7 (3.3-5.1) mmol/L Chloride 102 (96-108) mmol/L Carbon Dioxide 30 H (22-29) mmol/L Anion Gap 13 (12-20) BUN 25 H (9-16) mg/dL Creatinine 1.20 (0.5-1.4) mg/dL Estim Creat Clear Calc 25.3 Estimated GFR 57 Random Glucose 104 (60-115) mg/dL Calcium 8.7 (8.4-10.2) mg/dL Magnesium 2.2 (1.6-2.6) mg/dL Total Bilirubin 1.3 H (0.0-1.0) mg/dL AST 32 (5-37) U/L ALT 42 H (0-40) U/L Alkaline Phosphatase 125 H (39-117) U/L Ammonia 29 (13-55) umol/L Total Creatine Kinase 133 (38-174) U/L Troponin I High Sens 44.4 H (<3.5-35.0) ng/L B-Natriuretic Peptide 914 H (<100) pg/mL Total Protein 6.9 (6.5-8.0) g/dL Albumin 3.7 (3.5-5.0) g/dL Urine Color Yellow Urine Appearance Clear Urine pH 6.0 (5.0-9.0) Ur Specific [place] 1.015 (1.005-1.025) Urine Protein Trace (Neg-Trace) mg/dL Urine Glucose (UA) Negative (Negative) mg/dL Urine Ketones Negative (Negative) mg/dL Urine Blood Negative (Negative) Urine Nitrite Negative (Negative) Ur Leukocyte Esterase Negative (Negative) Independent Interpretation I performed an independent interpretation of an: Plain X-Ray and CT Scan Radiology Impression Discussion of test interpretation with radiology: I have reviewed the radiologist's reading. Independent Historian Clinical information obtained from an independent historian. History obtained from or confirmed by: Other (Son) External Record Review External record reviewed: Other (Prior ED visits) Social Determinants Patient?s care significantly limited by Social Determinants of Health including: Other Social Determinant of Health (Dementai) Discharge Plan Discharge Clinical Impression: New onset of congestive heart failure Patient Disposition: Admitted As Inpatient Interventions: Admission Worksheet (ED) Last Done: 08/10/23 10:44 Discharge Date/Time: 08/10/23 10:46
[2023-08-09 19:41] LABS: B Type Natriuretic Peptide 914 pg/mL (<100); Hematocrit 32.7 % (42.0-52.0); Hemoglobin 10.7 g/dl (14.0-18.0); Mean Corpuscular HGB Conc 32.7 g/dl (31.0-36.0); Mean Corpuscular Hemoglobin 31.8 pg (27.0-33.0); Mean Corpuscular Volume 97.3 fL (80.0-98.0); Mean Platelet Volume 11.3 fL (9.4-12.4); NRBC Pct Auto 0.4 /100WBC (0.0-0.2); Platelet Count 202 X10*3/uL (160-400); Red Blood Count 3.36 X10*6/uL (4.60-5.80); Red Cell Distribution Width 25.5 % (11.0-16.0); Troponin-I High Sensitivity 44.4 ng/L (<3.5-35.0)
[2023-08-09 19:42] LABS: WBC ABN SCTR FOR CBC 1; White Blood Count 5.4 X10*3/uL (4.8-10.8)
[2023-08-09 19:58] LABS: Band Neutrophils Percent 6 % (3-5); Lymphocytes Absolute Manual 1.3 X10*3/uL (1.2-4.9); Lymphocytes Percent Manual 24 % (20-40); Monocytes Absolute Manual 0.2 X10*3/uL (0.1-1.2); Monocytes Percent Manual 4 % (2-11); Myelocytes Absolute 0.1 X10*/uL; Myelocytes Percent 1 %; Neutrophils Absolute Manual 3.8 X10*3/uL (2.0-8.3); Neutrophils Percent Manual 65 % (45-73)
[2023-08-09 19:59] LABS: RBC Morphology NOTED; Target Cells 1+ (5-14) /OIF
[2023-08-09 20:00] LABS: Burr Cells 1+ (0-2) /OIF
[2023-08-09 20:01] LABS: Ovalocytes 1+ (5-14) /OIF
[2023-08-09 20:02] LABS: Polychromasia 1+ (0-2) /OIF
[2023-08-09 20:07] LABS: Toxic Vacuolation PRESENT
[2023-08-09 20:10] LABS: Platelet Estimate NORMAL (NORMAL); Platelet Morphology Comment NORMAL
[2023-08-09 20:18] LABS: Alanine Aminotransferase 42 U/L (0-40); Albumin Level 3.7 g/dL (3.5-5.0); Alkaline Phosphatase 125 U/L (39-117); Anion Gap 13 (12-20); Aspartate Amino Transferase 32 U/L (5-37); Bilirubin Total 1.3 mg/dL (0.0-1.0); Blood Urea Nitrogen 25 mg/dL (9-16); Calcium 8.7 mg/dL (8.4-10.2); Carbon Dioxide 30 mmol/L (22-29); Chloride 102 mmol/L (96-108); Creatinine Clr Calc Pharmacy 25.3; Estimated Glomerular Filt Rate 57; Glucose Random 104 mg/dL (60-115); Magnesium 2.2 mg/dL (1.6-2.6); Potassium 4.7 mmol/L (3.3-5.1); Sodium 140 mmol/L (135-145); Total Protein 6.9 g/dL (6.5-8.0)
[2023-08-09] MEDS: Furosemide 40 MG/4 ML VIAL IVPUSH (20:18)
[2023-08-09 20:19] LABS: Ammonia 29 umol/L (13-55)
--- NOTE | 2023-08-09 20:22 | PC.NURSE ---
Pt medicated per Nov, notified GILMA Ma.
[2023-08-09 21:01] LABS: Appearance Urine Clear; Color Urine Yellow; Glucose Urine UA Negative (Negative); Leukocyte Esterase Urine Negative (Negative); Nitrite Urine Negative (Negative); Specific Gravity - Urine 1.015 (1.005-1.025); Urine Blood Negative (Negative); Urine Ketones Negative (Negative); Urine Protein Trace mg/dL (Neg-Trace)
[2023-08-09 21:27] VITALS: BP 186/94; PULSE 80; RESP 17; TEMP 36.8; O2SAT 96
[2023-08-09] MEDS: iohexoL 350 MG/ML 100 ML INFUS..BTL IV (21:33)
--- NOTE | 2023-08-09 21:48 | MHC.EDTECH ---
Hourly rounds ,vitals,and belonging list completed and copy placed in chart,patient repositioned to comfort and call powell within reach
--- NOTE | 2023-08-09 22:36 | PM.IMHP ---
History of Present Illness Date of Service: 08/09/23 Chief Complaint: Fall This is a 88-year-old male with pertinent history of dementia with mood disorder, phf-dgwylfo-znylaskku diabetes mellitus, hypothyroidism, BPH, asthma was brought to the emergency department for bruising all over. Patient is altered and unable to obtain history from the patient. History obtained from ER provider and chart review. No family at bedside at the time of my evaluation. Son who was present earlier stated that the patient was having visual hallucinations likely due to dementia. His dementia has progressed over the last 1 month. Patient likely fell and hence the bruising. Unable to obtain review of systems. In the emergency department, he was found to be hypoxemic and BNP found to be elevated. Review of Systems Review of Systems: Yes Unobtainable due to mental status [facility] Medical History (Updated 08/10/23 @ 00:30 by Camron Corado MD) Asthma exacerbation New onset of congestive heart failure Arthritis Hypothyroidism Hyperlipidemia Hypertension Asthma Colitis Diabetes Pertinent family history: Unable to obtain Social History Household Members: Unknown / Unable to assess Housing: Unknown / Unable to assess Unable to assess alcohol history related to: Unknown Patient Tobacco Use Status: Tobacco use Unknown Advance Directives: No Advance Directives Information Provided: No Nutrition Risks: No Nutritional Risk service: No Current occupational status: unemployed and retired Meds Allergies Allergy/AdvReac Type Severity Reaction Status Date / Time No Known Allergies Allergy Verified 11/24/20 21:45 [No Known Allergies*] Home Medications Medication Instructions Recorded Confirmed Last Taken Type fluticasone propionate 44 2 puff inhalation BID 11/22/20 01/23/21 Unknown History mcg/actuation HFA aerosol inhaler (Flovent HFA) levothyroxine 125 mcg tablet 125 mcg PO DAILY@0630 11/22/20 01/23/21 Unknown History metoprolol succinate 100 mg 100 mg PO DAILY 11/22/20 01/23/21 Unknown History tablet,extended release 24 hr pioglitazone 15 mg tablet 15 mg PO DAILY 11/22/20 01/23/21 Unknown History simvastatin 40 mg tablet 40 mg PO BEDTIME 11/22/20 01/23/21 Unknown History tramadol 50 mg tablet 50 mg PO Q12H PRN pain 11/22/20 01/23/21 Unknown History blood sugar diagnostic #10 ea 01/23/21 01/23/21 Unknown History lancets 33 gauge #100 ea 01/23/21 01/23/21 Unknown History metformin 500 mg tablet,extended 500 mg PO BID 01/23/21 01/23/21 Unknown History release 24 hr quetiapine 25 mg tablet 25 mg PO BEDTIME 01/23/21 01/23/21 Unknown History Physical Exam Vital Signs and Narrative: Vital Signs: Last Vital Signs Temp 98.2 F 08/09/23 21:27 Pulse 80 08/09/23 21:27 Resp 17 08/09/23 21:27 BP 186/94 H 08/09/23 21:27 Pulse Ox 96 08/09/23 21:27 O2 Del Method Nasal Cannula 08/09/23 21:27 O2 Flow Rate 2 08/09/23 21:27 BMI result Body Mass Index 13.7 Elderly male lying in bed in no distress on supplemental oxygen Neck supple Regular rate and rhythm, S1-S2 heard Bilateral crackles Abdomen distended, nontender, no guarding, no rigidity Patient is awake, alert and disoriented to self, place, time and person ; not following commands, unable to have a conversation, unable to assess orientation Psych: Normal mood Bilateral pedal edema Results Labs 08/09/23 19:09 08/09/23 19:57 Labs: Laboratory Results - last 24 hr 08/09/23 08/09/23 08/09/23 19:09 19:57 20:46 MCV 97.3 MCH 31.8 MCHC 32.7 RDW 25.5 H Plt Count 202 MPV 11.3 Immature Gran % (Auto) Cancelled Neut % (Auto) Cancelled Lymph % (Auto) Cancelled [place] % (Auto) Cancelled Eos % (Auto) Cancelled Baso % (Auto) Cancelled Lymph # (Auto) Cancelled [place] # (Auto) Cancelled Eos # (Auto) Cancelled Baso # (Auto) Cancelled Abs Immat Gran (auto) Cancelled Absolute Neuts (auto) Cancelled Absolute Nucleated RBC 0.020 H Nucleated RBC % (auto) 0.4 H Neutrophils % (Manual) 65 Band Neutrophils % 6 H Lymphocytes % (Manual) 24 Monocytes % (Manual) 4 Myelocytes % 1 Abs Neuts (Manual) 3.8 Lymphocytes # (Manual) 1.3 Monocytes # (Manual) 0.2 Myelocytes # 0.1 Toxic Vacuolation PRESENT Platelet Estimate NORMAL Plt Morphology Comment NORMAL RBC Morphology NOTED Polychromasia 1+ (0-2) Target Cells 1+ (5-14) Ovalocytes 1+ (5-14) [place] Cells 1+ (0-2) PT 14.6 H INR 1.2 H APTT 29.8 Anion Gap 13 Estim Creat Clear Calc 25.3 Estimated GFR 57 Random Glucose 104 Calcium 8.7 Magnesium 2.2 Total Bilirubin 1.3 H AST 32 ALT 42 H Alkaline Phosphatase 125 H Ammonia 29 Total Creatine Kinase 133 B-Natriuretic Peptide 914 H Total Protein 6.9 Albumin 3.7 Urine Color Yellow Urine Appearance Clear Urine pH 6.0 Ur Specific [place] 1.015 Urine Protein Trace Urine Glucose (UA) Negative Urine Ketones Negative Urine Blood Negative Urine Nitrite Negative Ur Leukocyte Esterase Negative Imaging Radiologist's Impressions: Impressions Chest X-Ray 08/09/23 18:54 IMPRESSION: There are extensive chronic appearing changes again seen similar to the 2020 examination. A component of mild pulmonary edema would be difficult to exclude although the appearance is very similar to the prior study. Elbow X-Ray 08/09/23 21:23 IMPRESSION: Mild soft tissue swelling but no acute fracture or dislocation. No large joint effusion. Mild degenerative changes. Cervical Spine CT 08/09/23 21:53 IMPRESSION: Degenerative changes. No fracture or dislocation. Fleischner guidelines were followed. Head CT 08/09/23 21:53 IMPRESSION: No acute findings. Mild generalized atrophy and nonspecific periventricular white matter disease. Abdomen/Pelvis CT 08/09/23 21:55 IMPRESSION: 1. Although motion degraded study, there is soft tissue swelling in the presternal chest wall. I do not appreciate any acute bony abnormality. 2. Small bilateral pleural effusions with associated dependent airspace changes more likely due to atelectasis. 3. Cirrhotic appearing liver with moderate volume of ascites and diffuse anasarca. 4. Chronic appearing changes in the left shoulder with a high riding left humeral head consistent with chronic rotator cuff disease. 5. I do not appreciate any acute bony abnormality. There is a very large right shoulder joint effusion but this is not well assessed on this study. Chest CT 08/09/23 21:55 IMPRESSION: 1. Although motion degraded study, there is soft tissue swelling in the presternal chest wall. I do not appreciate any acute bony abnormality. 2. Small bilateral pleural effusions with associated dependent airspace changes more likely due to atelectasis. 3. Cirrhotic appearing liver with moderate volume of ascites and diffuse anasarca. 4. Chronic appearing changes in the left shoulder with a high riding left humeral head consistent with chronic rotator cuff disease. 5. I do not appreciate any acute bony abnormality. There is a very large right shoulder joint effusion but this is not well assessed on this study. Shoulder CT 08/09/23 21:55 IMPRESSION: 1. Although motion degraded study, there is soft tissue swelling in the presternal chest wall. I do not appreciate any acute bony abnormality. 2. Small bilateral pleural effusions with associated dependent airspace changes more likely due to atelectasis. 3. Cirrhotic appearing liver with moderate volume of ascites and diffuse anasarca. 4. Chronic appearing changes in the left shoulder with a high riding left humeral head consistent with chronic rotator cuff disease. 5. I do not appreciate any acute bony abnormality. There is a very large right shoulder joint effusion but this is not well assessed on this study. Assessment and Plan (1) New onset of congestive heart failure: Status: Acute Plan This is a 88-year-old male with pertinent history of dementia with mood disorder, tun-jqgbmki-muxtczmtg diabetes mellitus, hypothyroidism, BPH, asthma was brought to the emergency department for bruising all over. #. Acute hypoxemic respiratory failure due to acute decompensation of congestive heart failure, unspecified EF: Will admit patient with supplemental oxygen. Initiating IV diuresis. Strict I's and O's. Low-salt diet. Obtaining echocardiogram. #. Diffuse anasarca with moderate volume of ascites: Likely in the setting of above #. Normocytic anemia: Hemoglobin above transfusion threshold #. Elevated troponin: Likely in the setting of increased demand #. Dementia with mood disorder: Continue home mood stabilizers. Monitor sleep-wake cycle #. Kxm-exmqusw-vlrbvayut diabetes mellitus: Initiating Accu-Cheks with sliding scale insulin #. Hypothyroidism: On Synthroid #. BPH: On finasteride Med rec pending Full code. Readdress code status with family in a.m. Admit as inpatient and will require two night minimum hospital stay for supplemental oxygen, IV diuresis (as above), which is not possible in a lesser acute setting. Quality Stroke Does the patient have a stroke diagnosis?: No VTE Prior VTE?: No VTE Risk Level:: Medical - moderate - high VTE Device Contraindication: Treatment Not Indicated VTE Drug Contraindication: N/A - Med Ordered
[2023-08-09 23:09] VITALS: BP 168/86; PULSE 72; RESP 12; O2SAT 100
[2023-08-09] MEDS: Enoxaparin Sodium 30 MG/0.3 ML SYRINGE SUBCUT (23:10)
--- NOTE | 2023-08-09 23:20 | MHC.EDTECH ---
Hourly rounds completed,patient is resting at this time and call powell within reach
[2023-08-10] VITALS (7 sets, daily range): BP systolic 140–166; BP diastolic 64–80; PULSE 70–81; RESP 15–18; TEMP 36.2–36.8; O2SAT 95–98; BMI 36.1; BMI 35.8
[2023-08-10] MEDS: 0.9 % Sodium Chloride Flush 3 ML SYRINGE IVFLUSH ×4 (00:40→23:11)
--- NOTE | 2023-08-10 04:04 | MHC.EDTECH ---
Hourly rounds and vitals completed,patient repositioned to comfort.
--- NOTE | 2023-08-10 05:13 | PC.NURSE ---
pt unable to give med list.
[2023-08-10 06:22] LABS: Hemoglobin 11.2 g/dl (14.0-18.0); Mean Corpuscular HGB Conc 32.9 g/dl (31.0-36.0); Mean Corpuscular Hemoglobin 31.5 pg (27.0-33.0); Mean Corpuscular Volume 95.5 fL (80.0-98.0); Mean Platelet Volume 10.6 fL (9.4-12.4); NRBC Pct Auto 0.3 /100WBC (0.0-0.2); Platelet Count 193 X10*3/uL (160-400); Red Blood Count 3.56 X10*6/uL (4.60-5.80); Red Cell Distribution Width 24.9 % (11.0-16.0)
[2023-08-10 06:23] LABS: Anion Gap 14 (12-20); Blood Urea Nitrogen 23 mg/dL (9-16); Calcium 8.9 mg/dL (8.4-10.2); Carbon Dioxide 32 mmol/L (22-29); Chloride 99 mmol/L (96-108); Creatinine Clr Calc Pharmacy 27.7; Estimated Glomerular Filt Rate > 60; Glucose Random 80 mg/dL (60-115); Sodium 141 mmol/L (135-145)
[2023-08-10 06:24] LABS: WBC ABN SCTR FOR CBC 1
[2023-08-10 06:35] LABS: Band Neutrophils Percent 8 % (3-5); Basophils Abs Manual 0.1 X10*3/uL (0.0-0.2); Basophils Percent Manual 1 % (0-2); Lymphocytes Absolute Manual 1.2 X10*3/uL (1.2-4.9); Lymphocytes Percent Manual 20 % (20-40); Monocytes Absolute Manual 0.2 X10*3/uL (0.1-1.2); Monocytes Percent Manual 4 % (2-11); Neutrophils Absolute Manual 4.5 X10*3/uL (2.0-8.3); Neutrophils Percent Manual 67 % (45-73)
[2023-08-10 06:36] LABS: Macrocytosis 1+ (5-14) /OIF; RBC Morphology NOTED; Target Cells 1+ (5-14) /OIF
[2023-08-10 06:37] LABS: Basophilic Stippling 1+ (0-2) /OIF; Hypochromasia 1+ (5-14) /OIF; Large Platelet PRESENT; Platelet Estimate NORMAL (NORMAL); Platelet Morphology Comment NOTED; Polychromasia 1+ (0-2) /OIF
--- NOTE | 2023-08-10 06:39 | MHC.EDTECH ---
Hourly rounds and vitals completed,patient repositioned to comfort and pillow placed under right side. Call powell within reach
--- NOTE | 2023-08-10 07:00 | CA_ITS ---
Transthoracic Echocardiogram Patient (Last, First, Middle): Fermin Santoyo Anatolio, Gender: Male Date of : 1935 Age: 88 Procedure Date: 08/10/2023 Procedure Type: Transthoracic Echocardiogram Location: S3E Height: 175.26 cm Weight: 106.6 kg BSA: 2.21 m2 Heart Rate: bpm BP: 166 / 76 mmHg Diamond Wheel Molder: LIANA Referring MD: Camron Corado MD Symptoms: CHF Study Quality: Technically Difficult, contrast Conclusions: - Even with contrast difficult to assess LVEF; possibly 40-50%. - Evidence suggests grade II (moderate) diastolic dysfunction. - No obvious valvular pathology seen on this study. - Mild to moderate pulmonary hypertension is present. Findings Procedure Information Contrast agent, definity, is being given per protocol without apparent complications. Left Ventricle Normal left ventricular cavity size. There is mildly increased left ventricular wall thickness. Regional wall motion abnormalities can not be excluded due to suboptimal endocardial definition. Evidence suggests grade II (moderate) diastolic dysfunction. Even with contrast difficult to assess LVEF; possibly 40-50%. Right Ventricle Normal right ventricular cavity size and systolic function. Atria Both atria are normal in size. Aortic Valve There is mild calcification of the aortic valve. There is no aortic valve stenosis. There is no aortic valve regurgitation. Mitral Valve The mitral valve appears normal. There is no mitral valve regurgitation. There is no mitral valve stenosis. Pulmonic Valve The pulmonic valve is likely normal. Tricuspid Valve There is mild tricuspid valve regurgitation. Mild to moderate pulmonary hypertension is present. Great Vessels The asc aorta is normal in size. Venous The inferior vena cava is mildly dilated and collapses less than 50% with inspiration. Pericardium/Pleural There is no evidence of pericardial effusion. Prior Study Comparison Changes noted compared to prior study dated: 11/25/2020. see comment on LVEF. Recommendations, Care & Conclusions No obvious valvular pathology seen on this study. Measurements 2D Linear Measurements IVSd: 1.02 0.6-0.9/0.6-1.0 cm LVIDd: 4.87 3.9-5.3/4.2-5.9 cm LVIDd Index: 2.20 2.4-3.2/2.2-3.1 cm/m2 LVIDs: 4.11 2.0-3.6 cm LVPWd: 1.06 0.7-1.1 cm LA Diam: 4.40 2.7-3.8/3.0-4.0 cm LAIDs Index: 1.99 1.5-2.3 cm/m2 LV Mass: 229.01 67-162/88-224 g LV Mass Index: 103.62 43-95/49-115 g/m2 LVOT Diam: 2.00 3.0+(-)1.3 cm 2D Systolic Function EF 4C: 55.80 >55% EF 2C: 56.70 >55% Mitral Valve MV Pk E: 1.03 MV PK A: 0.69 MV Decel Time: 108.00 E/A: 1.50 E'Lateral: 5.00 E'Medial: 4.68 E/E' Med: 22.00 E/E' Lat: 20.60 PHT: 32.00 MVA PHT: 6.88 Decel [place]: 9.55 Aortic Valve AoV Pk Matthew: 1.77 AoV Mn Matthew: 1.24 AoV VTI: 0.34 AoV Pk Grad: 13.00 Aov Mn Grad: 7.00 GARRET Cont.VTI: 2.00 LVOT LVOT Pk Matthew: 1.01 LVOT Mn Matthew: 0.70 LVOT VTI: 0.21 LVOT Pk Grad: 4.00 LVOT Mn Grad: 2.00 LVOT Diam: 2.00 LVOT Area: 3.14 Diastolic Function MV Pk E: 1.03 MV Pk A: 0.69 E/A: 1.50 E'Medial: 4.68 E/E' Med: 22.00 E' Laterial: 5.00 E/E' Lat: 20.60 Right Ventricle TAPSE (mm): 17.50 TVS' Matthew: 14.50 Tricuspid Valve TR Pk Matthew: 3.20 TR Pk Grad: 41.00 RA Press: 15.00 RVSP: 56.00 Great Vessels Aorta Sinus of Valsalva: 3.64 2.0-3.[address] [place]: 2.43 1.7-3.4 cm Updated in Other Vendor System with Status of Final Ede Wei MD electronically signed on 08/10/2023 12:39:03 PM with status of Final
[2023-08-10 07:08] LABS: Glucose, Whole Blood 84 mg/dL (60-115)
--- NOTE | 2023-08-10 07:14 | PC.NURSE ---
ASSUMED CARE OF THIS PT AT 0700. PT ALERT, ORIENTED TO SELF ONLY. PT GIVEN BREAKFAST AND EATS INDEPENDENTLY. POC 84. EXTRA ORANGE JUICE GIVEN WITH BREAKFAST. WILL RECHECK SUGAR IN 30 MINS.
--- NOTE | 2023-08-10 08:15 | PHA.MEDREC ---
Pharmacy Consult ? Medication Reconciliation Pharmacy has completed the medication reconciliation. Used digital associate media director to call patients daughter who was able to confirm patients medication list.
[2023-08-10] MEDS: Furosemide 40 MG/4 ML VIAL IVPUSH (08:21)
--- NOTE | 2023-08-10 08:32 | PC.NURSE ---
b/p and hr within parameters, Lasix given as documented. no feet swelling present. denies pain.
[2023-08-10 11:07] LABS: Glucose, Whole Blood 112 mg/dL (60-115)
--- NOTE | 2023-08-10 13:10 | HO.PM.IMPN ---
Subjective Subjective Date of Service: 08/10/23 Review of Systems Follow up CHF hx of dementia unable to get history Physical Exam Vital Signs: Vital Signs: Last Vital Signs Temp 98.3 F 08/10/23 07:04 Pulse 81 08/10/23 08:25 Resp 15 08/10/23 07:04 BP 140/70 H 08/10/23 08:25 Pulse Ox 98 08/10/23 08:25 O2 Del Method Nasal Cannula 08/10/23 08:25 O2 Flow Rate 2 08/10/23 08:25 BMI result Body Mass Index 35.8 Appearing in no acute distress lung sounds are clear to auscultation heart regular rate rhythm, clear S1, S2 positive bowel sounds, abdomen is soft, nontender neuro patient is alert, confused Objective Data Active Medications Acetaminophen (Acetaminophen 325 Mg Tablet) 650 mg PO Q6H PRN PRN Reason: Pain, Mild (Pain Scale 1-3) Dextrose (Dextrose 50 % 25 Gm/50 Ml Syringe) 25 gm IVPUSH Q15M PRN; Protocol PRN Reason: per Hypoglycemia Standing Ord. Enoxaparin Sodium (Enoxaparin Sodium 30 Mg/0.3 Ml Syringe) 30 mg SUBCUT Q24H [facility] Last Admin: 08/09/23 23:10 Dose: 30 mg Documented By: SISI Furosemide (Furosemide 40 Mg/4 Ml Vial) 40 mg IVPUSH DAILY [facility]; Protocol Last Admin: 08/10/23 08:21 Dose: 40 mg Documented By: ADRIENNE Glucose (Glucose Gel 15 Gm Gel..Gram.) 15 gm PO Q15M PRN; Protocol PRN Reason: per Hypoglycemia Standing Ord. Insulin Human Lispro (Insulin Lispro 100 Unit/Ml 3 Ml Vial) 0 unit SUBCUT QIDACHS [facility]; Protocol Last Admin: 08/10/23 11:25 Dose: Not Given Documented By: ANTHONY Non-Admin Reason: No Insulin Coverage Melatonin (Melatonin 3 Mg Tablet) 6 mg PO BEDTIME PRN PRN Reason: Insomnia Ondansetron HCl (Ondansetron Hcl 4 Mg/2 Ml Vial) 4 mg IVPUSH Q8H PRN PRN Reason: Nausea and Vomiting Sodium Chloride (0.9 % Sodium Chloride Flush 3 Ml Syringe) 3 ml IVFLUSH QSHIFT [facility] Last Admin: 08/10/23 08:20 Dose: 3 ml Documented By: ADRIENNE Labs 08/10/23 05:13 08/10/23 05:13 Labs: Laboratory Results - last 24 hr 08/09/23 08/09/23 08/09/23 19:09 19:57 20:46 MCV 97.3 MCH 31.8 MCHC 32.7 RDW 25.5 H Plt Count 202 MPV 11.3 Immature Gran % (Auto) Cancelled Neut % (Auto) Cancelled Lymph % (Auto) Cancelled [place] % (Auto) Cancelled Eos % (Auto) Cancelled Baso % (Auto) Cancelled Lymph # (Auto) Cancelled [place] # (Auto) Cancelled Eos # (Auto) Cancelled Baso # (Auto) Cancelled Abs Immat Gran (auto) Cancelled Absolute Neuts (auto) Cancelled Absolute Nucleated RBC 0.020 H Nucleated RBC % (auto) 0.4 H Neutrophils % (Manual) 65 Band Neutrophils % 6 H Lymphocytes % (Manual) 24 Monocytes % (Manual) 4 Basophils % (Manual) Myelocytes % 1 Abs Neuts (Manual) 3.8 Lymphocytes # (Manual) 1.3 Monocytes # (Manual) 0.2 Basophils # (Manual) Myelocytes # 0.1 Toxic Vacuolation PRESENT Platelet Estimate NORMAL Large Platelets Plt Morphology Comment NORMAL RBC Morphology NOTED Polychromasia 1+ (0-2) Hypochromasia Basophilic Stippling Macrocytosis Target Cells 1+ (5-14) Ovalocytes 1+ (5-14) [place] Cells 1+ (0-2) PT 14.6 H INR 1.2 H APTT 29.8 Anion Gap 13 Estim Creat Clear Calc 25.3 Estimated GFR 57 POC Glucose Random Glucose 104 Calcium 8.7 Magnesium 2.2 Total Bilirubin 1.3 H AST 32 ALT 42 H Alkaline Phosphatase 125 H Ammonia 29 Total Creatine Kinase 133 B-Natriuretic Peptide 914 H Total Protein 6.9 Albumin 3.7 Urine Color Yellow Urine Appearance Clear Urine pH 6.0 Ur Specific [place] 1.015 Urine Protein Trace Urine Glucose (UA) Negative Urine Ketones Negative Urine Blood Negative Urine Nitrite Negative Ur Leukocyte Esterase Negative 08/10/23 08/10/23 08/10/23 05:13 07:02 11:04 MCV 95.5 MCH 31.5 MCHC 32.9 RDW 24.9 H Plt Count 193 MPV 10.6 Immature Gran % (Auto) Cancelled Neut % (Auto) Cancelled Lymph % (Auto) Cancelled [place] % (Auto) Cancelled Eos % (Auto) Cancelled Baso % (Auto) Cancelled Lymph # (Auto) Cancelled [place] # (Auto) Cancelled Eos # (Auto) Cancelled Baso # (Auto) Cancelled Abs Immat Gran (auto) Cancelled Absolute Neuts (auto) Cancelled Absolute Nucleated RBC 0.020 H Nucleated RBC % (auto) 0.3 H Neutrophils % (Manual) 67 Band Neutrophils % 8 H Lymphocytes % (Manual) 20 Monocytes % (Manual) 4 Basophils % (Manual) 1 Myelocytes % Abs Neuts (Manual) 4.5 Lymphocytes # (Manual) 1.2 Monocytes # (Manual) 0.2 Basophils # (Manual) 0.1 Myelocytes # Toxic Vacuolation Platelet Estimate NORMAL Large Platelets PRESENT Plt Morphology Comment NOTED RBC Morphology NOTED Polychromasia 1+ (0-2) Hypochromasia 1+ (5-14) Basophilic Stippling 1+ (0-2) Macrocytosis 1+ (5-14) Target Cells 1+ (5-14) Ovalocytes [place] Cells PT INR APTT Anion Gap 14 Estim Creat Clear Calc 27.7 Estimated GFR > 60 POC Glucose 84 112 Random Glucose 80 Calcium 8.9 Magnesium Total Bilirubin AST ALT Alkaline Phosphatase Ammonia Total Creatine Kinase B-Natriuretic Peptide Total Protein Albumin Urine Color Urine Appearance Urine pH Ur Specific [place] Urine Protein Urine Glucose (UA) Urine Ketones Urine Blood Urine Nitrite Ur Leukocyte Esterase Assessment and Plan (1) New onset of congestive heart failure: Status: Acute Plan This is a 88-year-old male with pertinent history of dementia with mood disorder, ccn-wssprsc-fgqjqcjqy diabetes mellitus, hypothyroidism, BPH, asthma was brought to the emergency department for bruising all over. Acute hypoxemic respiratory failure due to acute decompensation of HFrEF BNP 914 supplemental oxygen. Strict I's and O's. Low-salt diet. echocardiogram EF 40-50% with evidence of grade 2 diastolic dysfunction with kuev-qe-cxpohogc pulmonary hypertension Continue IV Lasix Diffuse anasarca with moderate volume of ascites Likely in the setting of above Normocytic anemia Hemoglobin above transfusion threshold Elevated troponin Likely in the setting of increased demand Dementia with mood disorder Continue home mood stabilizers. Monitor sleep-wake cycle Dho-gbhtimh-qtozjoqki diabetes mellitus type 2 sliding scale, ADA diet Hypothyroidism On Synthroid BPH finasteride DVT prophylaxis with Lovenox Attending Dr. Griffin Full code. continue hospital stay for supplemental oxygen, IV diuresis (as above), which is not possible in a lesser acute setting. Quality Stroke Does the patient have a stroke diagnosis?: No VTE Prior VTE?: No VTE Risk Level:: Medical - moderate - high VTE Device Contraindication: Treatment Not Indicated VTE Drug Contraindication: N/A - Med Ordered
[2023-08-10] MEDS: Acetaminophen 325 MG TABLET 650 MG PO (15:43)
[2023-08-10 16:12] LABS: Glucose, Whole Blood 122 mg/dL (60-115)
[2023-08-10] MEDS: Atorvastatin Calcium 20 MG TABLET PO (19:40)
[2023-08-10] MEDS: QUEtiapine Fumarate 25 MG TABLET PO (19:40)
[2023-08-10 21:16] LABS: Glucose, Whole Blood 115 mg/dL (60-115)
[2023-08-10 22:12] LABS: Glucose, Whole Blood 119 mg/dL (60-115)
[2023-08-10] MEDS: Enoxaparin Sodium 30 MG/0.3 ML SYRINGE SUBCUT (23:10)
[2023-08-11] MEDS: OLANZapine 10 MG VIAL 5 MG IM ×3 (01:04→12:44)
--- NOTE | 2023-08-11 03:24 | PC.NURSE ---
Patient is very confused and combative, keeps pulling on his heart monitor, oxygen and gray catheter. Removed IV access. One dose of IM Zyprexa administered at 0100 with very minimal effect. Another dose ordered by Dr Corado, will be administered as soon as it gets processed by pharmacy. 1:1 sitter provided.
[2023-08-11 04:00] VITALS: PULSE 104; RESP 18; TEMP 36; O2SAT 98
[2023-08-11] MEDS: Levothyroxine Sodium 125 MCG TABLET PO (05:58)
[2023-08-11 06:29] LABS: Anion Gap 14 (12-20); Blood Urea Nitrogen 21 mg/dL (9-16); Calcium 8.8 mg/dL (8.4-10.2); Carbon Dioxide 32 mmol/L (22-29); Chloride 100 mmol/L (96-108); Creatinine Clr Calc Pharmacy 53.8; Estimated Glomerular Filt Rate 59; Glucose Random 103 mg/dL (60-115); Sodium 142 mmol/L (135-145)
[2023-08-11 06:41] LABS: B Type Natriuretic Peptide 817 pg/mL (<100)
[2023-08-11 07:21] VITALS: BP 149/70; PULSE 100; RESP 20; TEMP 36.2; O2SAT 93
[2023-08-11 07:44] LABS: Glucose, Whole Blood 103 mg/dL (60-115)
[2023-08-11] MEDS: Furosemide 40 MG/4 ML VIAL IVPUSH (09:24)
[2023-08-11] MEDS: Acetaminophen 325 MG TABLET 650 MG PO ×2 (09:26→20:21)
[2023-08-11] MEDS: 0.9 % Sodium Chloride Flush 3 ML SYRINGE IVFLUSH ×3 (09:26→20:22)
--- NOTE | 2023-08-11 10:56 | P.PNIM_ITS ---
Subjective Subjective Date of Service: 08/11/23 Review of Systems Follow up CHF hx of dementia unable to get history Physical Exam 2 Vital Signs: Vital Signs: Last Vital Signs Temp 97.2 F 08/11/23 07:21 Pulse 100 08/11/23 07:21 Resp 20 08/11/23 07:21 BP 149/70 H 08/11/23 07:21 Pulse Ox 93 08/11/23 07:21 O2 Del Method Room Air 08/11/23 07:21 O2 Flow Rate 2 08/11/23 04:00 BMI result Body Mass Index 35.8 Appearing in no acute distress lung sounds clear heart regular rate rhythm, clear S1, S2 positive bowel sounds, abdomen is soft, nontender neuro patient is alert x3, no focal deficits Objective Data Active Medications Acetaminophen (Acetaminophen 325 Mg Tablet) 650 mg PO Q6H PRN PRN Reason: Pain, Mild (Pain Scale 1-3) Last Admin: 08/11/23 09:26 Dose: 650 mg Documented By: RISSA Atorvastatin Calcium (Atorvastatin Calcium 20 Mg Tablet) 20 mg PO BEDTIME [facility] Last Admin: 08/10/23 19:40 Dose: 20 mg Documented By: AMBER Dextrose (Dextrose 50 % 25 Gm/50 Ml Syringe) 25 gm IVPUSH Q15M PRN; Protocol PRN Reason: per Hypoglycemia Standing Ord. Enoxaparin Sodium (Enoxaparin Sodium 30 Mg/0.3 Ml Syringe) 30 mg SUBCUT Q24H [facility] Last Admin: 08/10/23 23:10 Dose: 30 mg Documented By: AMBER Fluticasone Propionate (Fluticasone Propionate 100 Mcg Blst.W.Dev) 1 puff INHALE RBID [facility] Last Admin: 08/11/23 08:03 Dose: Not Given Documented By: SAGE Non-Admin Reason: Patient unable to take appropriately Furosemide (Furosemide 40 Mg/4 Ml Vial) 40 mg IVPUSH DAILY [facility]; Protocol Last Admin: 08/11/23 09:24 Dose: 40 mg Documented By: RISSA Glucose (Glucose Gel 15 Gm Gel..Gram.) 15 gm PO Q15M PRN; Protocol PRN Reason: per Hypoglycemia Standing Ord. Insulin Human Lispro (Insulin Lispro 100 Unit/Ml 3 Ml Vial) 0 unit SUBCUT QIDACHS [facility]; Protocol Last Admin: 08/11/23 08:53 Dose: Not Given Documented By: RISSA Non-Admin Reason: No Insulin Coverage Levothyroxine Sodium (Levothyroxine Sodium 125 Mcg Tablet) 125 mcg PO DAILY@0630 [facility] Last Admin: 08/11/23 05:58 Dose: 125 mcg Documented By: AMBER Melatonin (Melatonin 3 Mg Tablet) 6 mg PO BEDTIME PRN PRN Reason: Insomnia Ondansetron HCl (Ondansetron Hcl 4 Mg/2 Ml Vial) 4 mg IVPUSH Q8H PRN PRN Reason: Nausea and Vomiting Quetiapine Fumarate (Quetiapine Fumarate 25 Mg Tablet) 25 mg PO BEDTIME [facility] Last Admin: 08/10/23 19:40 Dose: 25 mg Documented By: AMBER Sodium Chloride (0.9 % Sodium Chloride Flush 3 Ml Syringe) 3 ml IVFLUSH QSHIFT [facility] Last Admin: 08/11/23 09:26 Dose: 3 ml Documented By: RISSA Labs 08/10/23 05:13 08/11/23 05:33 Labs: Laboratory Results - last 24 hr 08/10/23 08/10/23 08/10/23 11:04 16:08 20:09 Anion Gap Estim Creat Clear Calc Estimated GFR POC Glucose 112 122 H 119 H Random Glucose Calcium B-Natriuretic Peptide 08/10/23 08/11/23 08/11/23 21:12 05:33 07:40 Anion Gap 14 Estim Creat Clear Calc 53.8 Estimated GFR 59 POC Glucose 115 103 Random Glucose 103 Calcium 8.8 B-Natriuretic Peptide 817 H Assessment and Plan (1) New onset of congestive heart failure: Status: Acute Plan This is a 88-year-old male with pertinent history of dementia with mood disorder, hbm-kmmzney-lwaliaxto diabetes mellitus, hypothyroidism, BPH, asthma was brought to the emergency department for bruising all over. Acute hypoxemic respiratory failure due to acute decompensation of HFrEF BNP 914, down to 817 today supplemental oxygen. Strict I's and O's. Low-salt diet. echocardiogram EF 40-50% with evidence of grade 2 diastolic dysfunction with jzbi-gy-bbjnppvt pulmonary hypertension Continue IV Lasix neg 7 liters Diffuse anasarca with moderate volume of ascites improving Likely in the setting of above Normocytic anemia Hemoglobin above transfusion threshold Elevated troponin Likely in the setting of increased demand Dementia with mood disorder Continue home mood stabilizers. Monitor sleep-wake cycle Nvt-pdupxie-dthqelvgf diabetes mellitus type 2 sliding scale, ADA diet Hypothyroidism On Synthroid BPH finasteride DVT prophylaxis with Lovenox Attending Dr. Griffin Full code. Disposition. Physical therapy consultation pending continue hospital stay for supplemental oxygen, IV diuresis (as above), which is not possible in a lesser acute setting. Quality Stroke Does the patient have a stroke diagnosis?: No VTE Prior VTE?: No VTE Risk Level:: Medical - moderate - high VTE Device Contraindication: Treatment Not Indicated VTE Drug Contraindication: N/A - Med Ordered
[2023-08-11 11:43] LABS: Glucose, Whole Blood 116 mg/dL (60-115)
[2023-08-11 12:26] VITALS: BP 149/70; PULSE 100; O2SAT 93
[2023-08-11 15:24] VITALS: BP 119/60; PULSE 97; RESP 20; TEMP 36.1; O2SAT 93
--- NOTE | 2023-08-11 15:36 | PC.NURSE ---
Farias removed at 1430. DTV @ 2029. [place] placed.
--- NOTE | 2023-08-11 15:55 | MHC.CM.PN ---
pt lives with and children pt needs amb home his son is his occupational health professional and he has rn/cca visits monthly
[2023-08-11 16:14] LABS: Glucose, Whole Blood 124 mg/dL (60-115)
[2023-08-11] MEDS: QUEtiapine Fumarate 50 MG TABLET PO (18:37)
[2023-08-11 19:40] VITALS: BP 94/55; PULSE 89; RESP 16; TEMP 36.3; O2SAT 93
[2023-08-11] MEDS: QUEtiapine Fumarate 25 MG TABLET PO (20:21)
[2023-08-11] MEDS: Melatonin 3 MG TABLET 6 MG PO (20:22)
[2023-08-11] MEDS: Atorvastatin Calcium 20 MG TABLET PO (20:22)
[2023-08-11 20:23] LABS: Glucose, Whole Blood 130 mg/dL (60-115)
[2023-08-11] MEDS: Enoxaparin Sodium 30 MG/0.3 ML SYRINGE SUBCUT (22:30)
--- NOTE | 2023-08-12 | ECG_ITS ---
Test Reason : tachy Blood Pressure : / mmHG Vent. Rate : 076 BPM Atrial Rate : 075 BPM P-R Int : 000 ms QRS Dur : 080 ms QT Int : 380 ms P-R-T Axes : 000 -15 226 degrees QTc Int : 427 ms Atrial fibrillation Nonspecific T wave abnormality Abnormal ECG When compared with ECG of 12-AUG-2023 10:26, Atrial fibrillation has replaced Normal sinus rhythm Nonspecific T wave abnormality now evident in Inferior leads Referred By: Saira Marin Electronically Signed By:JOSE ALFREDO BHARDWAJ MD
--- NOTE | 2023-08-12 | ECG_ITS ---
Test Reason : check cardiac status Blood Pressure : / mmHG Vent. Rate : 079 BPM Atrial Rate : 079 BPM P-R Int : 210 ms QRS Dur : 080 ms QT Int : 394 ms P-R-T Axes : 047 006 086 degrees QTc Int : 451 ms Sinus rhythm with 1st degree A-V block Nonspecific ST abnormality Abnormal ECG When compared with ECG of 23-NOV-2020 08:05, Nonspecific ST abnormality is new T wave amplitude has decreased in Lateral leads Referred By: Saira Marin Electronically Signed By:JOSE ALFREDO BHARDWAJ MD
[2023-08-12 00:24] VITALS: BP 90/53; PULSE 91; RESP 18; TEMP 36.2; O2SAT 92
--- NOTE | 2023-08-12 04:01 | PC.NURSE ---
Noted with a dime-size open area on the scrotum, Triad cream applied.
--- NOTE | 2023-08-12 04:30 | PC.NURSE ---
Previous RN reported that pt's family has verbalized desire to change pt's code status, Dr. Corado and staff interpreter was paged, came and spoke to family, later decided that they will have family conversation first and will give decision in the morning, pt remained full code. Pt seen restless, confused, combative, gave due meds but pt mostly spitted it out, refused to drink. No urine noted at 2000, bladder scan done = 5ml. Around midnight routine vitals, O2 sats was 78% RA, O2 at 2L/min via NC placed, O2 sats went up to 91-92%. Dr. Corado was notified. Still no urine output at 0400, bladder scan =47ml.
[2023-08-12] MEDS: Levothyroxine Sodium 125 MCG TABLET PO (05:56)
[2023-08-12 06:15] LABS: Anion Gap 15 (12-20); Blood Urea Nitrogen 23 mg/dL (9-16); Calcium 8.7 mg/dL (8.4-10.2); Carbon Dioxide 30 mmol/L (22-29); Chloride 100 mmol/L (96-108); Creatinine Clr Calc Pharmacy 51.6; Estimated Glomerular Filt Rate 57; Glucose Random 82 mg/dL (60-115); Sodium 141 mmol/L (135-145)
[2023-08-12 06:32] LABS: B Type Natriuretic Peptide 1166 pg/mL (<100)
[2023-08-12] MEDS: OLANZapine 10 MG VIAL 5 MG IM (06:32)
--- NOTE | 2023-08-12 06:33 | PC.NURSE ---
Pt very agitated and being combative with staff, spitting at us, swinging shelter monitor at us, trying to get out of bed. Crosby text sent to Dr. Corado regarding pt's behavior. Dr. Corado ordered IM Zyprexa prn, medication administered. Will continue to monitor.
[2023-08-12 07:15] LABS: Glucose, Whole Blood 97 mg/dL (60-115)
[2023-08-12 07:27] VITALS: BP 138/81; PULSE 100; RESP 18; TEMP 36.4; O2SAT 92
[2023-08-12 08:12] LABS: Alanine Aminotransferase 29 U/L (0-40); Albumin Level 3.3 g/dL (3.5-5.0); Alkaline Phosphatase 120 U/L (39-117); Aspartate Amino Transferase 39 U/L (5-37); Bilirubin Direct 0.7 mg/dL (0.0-0.5); Bilirubin Total 1.5 mg/dL (0.0-1.0); Total Protein 6.5 g/dL (6.5-8.0)
[2023-08-12] MEDS: 0.9 % Sodium Chloride Flush 3 ML SYRINGE IVFLUSH ×3 (08:55→22:47)
[2023-08-12] MEDS: Furosemide 40 MG/4 ML VIAL IVPUSH (08:55)
--- NOTE | 2023-08-12 10:06 | P.CONCA_ITS ---
History of Present Illness History of Present Illness Date of Service: 08/12/23 Chief complaint: Fall Narrative: This cardiology consultation regarding question of congestive heart failure. Patient is essentially nonverbal not able to say anything. Tried using pot builder and asked many questions but essentially cannot get any meaningful answers. He is just starting. According to the occupational health nursing director, seems he got some medications as he was very agitated and fighting everything. From admission documentation, history of dementia/mood disorder, diabetes apparently was brought to the hospital for bruising all over. Even upon arrival, he was not able to give any history. At that time, impression was acute hypoxemic respiratory failure. He has been treated accordingly it seems with diuretics, supplemental oxygen among others. Review of Systems 2 Review of Systems: Unable to obtain. Neurologic: Reports confusion Psychiatric: Psychiatric: Reports confusion [facility] Past Medical History Medical History (Updated 08/12/23 @ 10:12 by Ede Wei MD) Asthma exacerbation New onset of congestive heart failure Arthritis Hypothyroidism Hyperlipidemia Hypertension Asthma Colitis Diabetes Family History Pertinent family history: Unable to obtain. Social History Social History Household Members: Unknown / Unable to assess Household Members Other:: pt. with hx dementia, unable to assess Housing: Unknown / Unable to assess Unable to assess alcohol history related to: Unable to respond Patient Tobacco Use Status: Tobacco use Unknown service: No Current occupational status: unemployed and retired Meds Allergies Allergy/AdvReac Type Severity Reaction Status Date / Time No Known Allergies Allergy Verified 11/24/20 21:45 [No Known Allergies*] Active Medications: Current Medications Acetaminophen (Acetaminophen 325 Mg Tablet) 650 mg PO Q6H PRN PRN Reason: Pain, Mild (Pain Scale 1-3) Last Admin: 08/11/23 20:21 Dose: 650 mg Atorvastatin Calcium (Atorvastatin Calcium 20 Mg Tablet) 20 mg PO BEDTIME [facility] Last Admin: 08/11/23 20:22 Dose: 20 mg Dextrose (Dextrose 50 % 25 Gm/50 Ml Syringe) 25 gm IVPUSH Q15M PRN; Protocol PRN Reason: per Hypoglycemia Standing Ord. Enoxaparin Sodium (Enoxaparin Sodium 30 Mg/0.3 Ml Syringe) 30 mg SUBCUT Q24H [facility] Last Admin: 08/11/23 22:30 Dose: 30 mg Fluticasone Propionate (Fluticasone Propionate 100 Mcg Blst.W.Dev) 1 puff INHALE RBID [facility] Last Admin: 08/12/23 07:45 Dose: Not Given Furosemide (Furosemide 40 Mg/4 Ml Vial) 40 mg IVPUSH DAILY [facility]; Protocol Last Admin: 08/12/23 08:55 Dose: 40 mg Glucose (Glucose Gel 15 Gm Gel..Gram.) 15 gm PO Q15M PRN; Protocol PRN Reason: per Hypoglycemia Standing Ord. Insulin Human Lispro (Insulin Lispro 100 Unit/Ml 3 Ml Vial) 0 unit SUBCUT QIDACHS [facility]; Protocol Last Admin: 08/12/23 07:29 Dose: Not Given Levothyroxine Sodium (Levothyroxine Sodium 125 Mcg Tablet) 125 mcg PO DAILY@0630 [facility] Last Admin: 08/12/23 05:56 Dose: 125 mcg Melatonin (Melatonin 3 Mg Tablet) 6 mg PO BEDTIME PRN PRN Reason: Insomnia Last Admin: 08/11/23 20:22 Dose: 6 mg Olanzapine (Olanzapine 10 Mg Vial) 5 mg IM DAILY PRN PRN Reason: anxiety/restlessness Last Admin: 08/12/23 06:32 Dose: 5 mg Ondansetron HCl (Ondansetron Hcl 4 Mg/2 Ml Vial) 4 mg IVPUSH Q8H PRN PRN Reason: Nausea and Vomiting Quetiapine Fumarate (Quetiapine Fumarate 25 Mg Tablet) 25 mg PO BEDTIME [facility] Last Admin: 08/11/23 20:21 Dose: 25 mg Sodium Chloride (0.9 % Sodium Chloride Flush 3 Ml Syringe) [facility] Last Admin: 08/12/23 08:55 Dose: 3 ml Home Medications Medication Instructions Recorded Confirmed Last Taken Type fluticasone propionate 44 2 puff inhalation BID 11/22/20 08/10/23 Unknown History mcg/actuation HFA aerosol inhaler (Flovent HFA) levothyroxine 125 mcg tablet 125 mcg PO DAILY@0630 11/22/20 08/10/23 Unknown History metoprolol succinate 100 mg 100 mg PO DAILY 11/22/20 08/10/23 Unknown History tablet,extended release 24 hr simvastatin 40 mg tablet 40 mg PO BEDTIME 11/22/20 08/10/23 Unknown History tramadol 50 mg tablet 50 mg PO Q12H PRN pain 11/22/20 08/10/23 Unknown History blood sugar diagnostic #10 ea 01/23/21 08/10/23 Unknown History lancets 33 gauge #100 ea 01/23/21 08/10/23 Unknown History metformin 500 mg tablet,extended 500 mg PO BID 01/23/21 08/10/23 Unknown History release 24 hr quetiapine 25 mg tablet 25 mg PO BEDTIME 01/23/21 08/10/23 Unknown History Physical Exam 2 Vital Signs: Vital Signs: Last Vital Signs Temp 97.5 F 08/12/23 07:27 Pulse 100 08/12/23 07:27 Resp 18 08/12/23 07:27 BP 138/81 08/12/23 07:27 Pulse Ox 92 08/12/23 07:27 O2 Del Method Nasal Cannula 08/12/23 07:27 O2 Flow Rate 2 08/12/23 07:27 BMI result Body Mass Index 35.8 Const: General: no acute distress and confusion Orientation/consciousness: No patient oriented x3 and confusion HEENT: Other: Unremarkable Head: Yes normal to inspection Neck: Neck: Yes normal visual inspection Chest: Chest palpation & inspection: normal inspection of the chest Resp: Auscultation: diminished lung sounds Cardio: Palpation: normal PMI Heart sounds: S1 normal heart sound present, S2 normal heart sound present, no gallops, Murmur heart sound present systolic II/ and at the right sternal border and no rubs GI: Palpation (GI): Soft to palpation Back/Spine/Pelvis: Other: unremarkable Skin: General skin exam: no rashes or lesions noted Neuro: General: No patient oriented x3 and confusion Extrem: General: Yes normal to inspection Psych: Mental Status: mental status grossly abnormal Objective Labs and Meds 08/10/23 05:13 08/12/23 05:21 Lab results: Laboratory Results - last 24 hr 08/11/23 08/11/23 08/11/23 11:38 16:09 20:15 Sodium Potassium Chloride Carbon Dioxide Anion Gap BUN Creatinine Estim Creat Clear Calc Estimated GFR POC Glucose 116 H 124 H 130 H Random Glucose Calcium Total Bilirubin Direct Bilirubin AST ALT Alkaline Phosphatase B-Natriuretic Peptide Total Protein Albumin 08/12/23 08/12/23 05:21 06:54 Sodium 141 Potassium 4.0 Chloride 100 Carbon Dioxide 30 H Anion Gap 15 BUN 23 H Creatinine 1.21 Estim Creat Clear Calc 51.6 Estimated GFR 57 POC Glucose 97 Random Glucose 82 Calcium 8.7 Total Bilirubin 1.5 H Direct Bilirubin 0.7 H AST 39 H ALT 29 Alkaline Phosphatase 120 H B-Natriuretic Peptide 1166 H Total Protein 6.5 Albumin 3.3 L Assessment and Plan (1) Acute on chronic systolic and diastolic heart failure, NYHA class 3: Status: Acute (2) Cirrhosis: Status: Acute (3) Dementia: Status: Acute Plan Imaging studies reviewed. Echocardiogram with LVEF of 40-50%. Moderate diastolic dysfunction. Uewg-jr-enqfatpv pulmonary hypertension. In the chest CT scan, small bilateral pleural effusions; cirrhotic appearing liver with moderate ascites and diffuse anasarca. Vascular calcifications. EKG is not available. Troponins are slightly elevated. Cardiac BNP is more than a 1000. Overall, possible acute on chronic heart failure but difficult to assess as he is nonverbal and cannot communicate. Clinical examination is also difficult. Based on the available data above, we can empirically diurese him. Otherwise, guarded prognosis. Goals of care will need to be discussed with family. Discussed with Saira Marin. Procedures Date of Service Date of Service: 08/12/23
[2023-08-12 11:33] LABS: Glucose, Whole Blood 137 mg/dL (60-115)
[2023-08-12 16:00] VITALS: BP 91/52; PULSE 77; RESP 16; TEMP 37; O2SAT 94
[2023-08-12 16:31] LABS: Glucose, Whole Blood 124 mg/dL (60-115)
--- NOTE | 2023-08-12 17:55 | P.PNIM_ITS ---
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 - patient with advanced dementia, unable to provide any history or ROS discussed with granddaughter at bedside who is secondary HCP - she states that he is currently at baseline mental status - discussed goals of care, she will discuss further with primary HCP Elyo Christensen pt appears comfortable Physical Exam 2 Vital Signs: Vital Signs: Last Vital Signs Temp 98.6 F 08/12/23 16:00 Pulse 77 08/12/23 16:00 Resp 16 08/12/23 16:00 BP 91/52 L 08/12/23 16:00 Pulse Ox 94 08/12/23 16:00 O2 Del Method Nasal Cannula 08/12/23 16:00 O2 Flow Rate 3 08/12/23 16:00 BMI result Body Mass Index 35.8 Const: General: comfortable, no acute distress, alert and awake Nutritional Appearance: obese Resp: Other: dim Effort & Inspection: normal respiratory effort, no respiratory distress and no use of accessory muscles Cardio: Rate: regular rate Neuro: Other: unable to assess orientation, grossly nonfocal; moves all extremities Extrem: General: Yes no pedal edema Objective Data Active Medications Acetaminophen (Acetaminophen 325 Mg Tablet) 650 mg PO Q6H PRN PRN Reason: Pain, Mild (Pain Scale 1-3) Last Admin: 08/11/23 20:21 Dose: 650 mg Documented By: LAYLA Atorvastatin Calcium (Atorvastatin Calcium 20 Mg Tablet) 20 mg PO BEDTIME [facility], [facility] Last Admin: 08/11/23 20:22 Dose: 20 mg Documented By: LAYLA Dextrose (Dextrose 50 % 25 Gm/50 Ml Syringe) 25 gm IVPUSH Q15M PRN; Protocol PRN Reason: per Hypoglycemia Standing Ord. Enoxaparin Sodium (Enoxaparin Sodium 30 Mg/0.3 Ml Syringe) 30 mg SUBCUT Q24H [facility], [facility] Last Admin: 08/11/23 22:30 Dose: 30 mg Documented By: LAYLA Fluticasone Propionate (Fluticasone Propionate 100 Mcg Blst.W.Dev) 1 puff INHALE RBID [facility], [facility] Last Admin: 08/12/23 07:45 Dose: Not Given Documented By: RACHEAL Non-Admin Reason: Med Not Available Furosemide (Furosemide 40 Mg/4 Ml Vial) 40 mg IVPUSH DAILY [facility], [facility]; Protocol Last Admin: 08/12/23 08:55 Dose: 40 mg Documented By: HUBER Glucose (Glucose Gel 15 Gm Gel..Gram.) 15 gm PO Q15M PRN; Protocol PRN Reason: per Hypoglycemia Standing Ord. Insulin Human Lispro (Insulin Lispro 100 Unit/Ml 3 Ml Vial) 0 unit SUBCUT QIDACHS [facility], [facility]; Protocol Last Admin: 08/12/23 16:42 Dose: Not Given Documented By: HUBER Non-Admin Reason: No Insulin Coverage Levothyroxine Sodium (Levothyroxine Sodium 125 Mcg Tablet) 125 mcg PO DAILY@0630 [facility] Last Admin: 08/12/23 05:56 Dose: 125 mcg Documented By: LAYLA Melatonin (Melatonin 3 Mg Tablet) 6 mg PO BEDTIME PRN PRN Reason: Insomnia Last Admin: 08/11/23 20:22 Dose: 6 mg Documented By: LAYLA Olanzapine (Olanzapine 10 Mg Vial) 5 mg IM DAILY PRN PRN Reason: anxiety/restlessness Last Admin: 08/12/23 06:32 Dose: 5 mg Documented By: BLAYNE Ondansetron HCl (Ondansetron Hcl 4 Mg/2 Ml Vial) 4 mg IVPUSH Q8H PRN PRN Reason: Nausea and Vomiting Quetiapine Fumarate (Quetiapine Fumarate 25 Mg Tablet) 25 mg PO BEDTIME [facility] Last Admin: 08/11/23 20:21 Dose: 25 mg Documented By: LAYLA Sodium Chloride (0.9 % Sodium Chloride Flush 3 Ml Syringe) 3 ml IVFLUSH QSHIFT [facility] Last Admin: 08/12/23 17:12 Dose: 3 ml Documented By: HUBER Labs 08/10/23 05:13 08/12/23 05:21 Labs: Laboratory Results - last 24 hr 08/11/23 08/12/23 08/12/23 20:15 05:21 06:54 Anion Gap 15 Estim Creat Clear Calc 51.6 Estimated GFR 57 POC Glucose 130 H 97 Random Glucose 82 Calcium 8.7 Total Bilirubin 1.5 H Direct Bilirubin 0.7 H AST 39 H ALT 29 Alkaline Phosphatase 120 H B-Natriuretic Peptide 1166 H Total Protein 6.5 Albumin 3.3 L 08/12/23 08/12/23 11:16 16:19 Anion Gap Estim Creat Clear Calc Estimated GFR POC Glucose 137 H 124 H Random Glucose Calcium Total Bilirubin Direct Bilirubin AST ALT Alkaline Phosphatase B-Natriuretic Peptide Total Protein Albumin Assessment and Plan (1) Dementia: Status: Acute (2) Cirrhosis: Status: Acute (3) Acute on chronic systolic and diastolic heart failure, NYHA class 3: Status: Acute Plan This is a 88-year-old male with pertinent history of dementia with mood disorder, hwl-nhjskqe-hnlhaasrr diabetes mellitus, hypothyroidism, BPH, asthma was brought to the emergency department for bruising all over. Acute hypoxemic respiratory failure due to acute decompensation of HFrEF BNP still elevated supplemental oxygen. Strict I's and O's. Low-salt diet. echocardiogram EF 40-50% with evidence of grade 2 diastolic dysfunction with uqdx-sk-mildyeyt pulmonary hypertension Continue IV Lasix neg 10 liters thus far seen by cardiology - overall poor prognosis and given advanced dementia rec goals of care discussion. bp soft, metoprolol on hold Diffuse anasarca with moderate volume of ascites improving likely multifactorial due to CHF and CT abdomen showing cirrhosis Normocytic anemia Hemoglobin above transfusion threshold Elevated troponin Likely in the setting of increased demand Dementia with mood disorder Continue home mood stabilizers. Monitor sleep-wake cycle more agitated due to change in environment Yoc-nxaxkts-eclwtpmao diabetes mellitus type 2 metformin on hold sliding scale, ADA diet Hypothyroidism continue Synthroid BPH finasteride DVT prophylaxis with Lovenox Attending Dr. Griffin Full code. Disposition. seen by PT - unable to follow commands, no indication for PT. likely home with family when medically ready goals of care - began discussion with granddaughter who is secondary HCP as primary HCP was not available. discussed palliative care, plan to follow up with Eloy Christensen, HCP in am continue hospital stay for supplemental oxygen, IV diuresis (as above), which is not possible in a lesser acute setting. Quality Stroke Does the patient have a stroke diagnosis?: No VTE Prior VTE?: No VTE Risk Level:: Medical - moderate - high VTE Device Contraindication: Treatment Not Indicated VTE Drug Contraindication: N/A - Med Ordered
[2023-08-12 18:14] VITALS: O2SAT 92
[2023-08-12 19:42] VITALS: BP 118/58; PULSE 84; RESP 18; TEMP 36; O2SAT 93
[2023-08-12 20:34] LABS: Glucose, Whole Blood 132 mg/dL (60-115)
[2023-08-12] MEDS: Melatonin 3 MG TABLET 6 MG PO (22:39)
[2023-08-12] MEDS: QUEtiapine Fumarate 25 MG TABLET PO (22:39)
[2023-08-12] MEDS: Atorvastatin Calcium 20 MG TABLET PO (22:39)
[2023-08-12] MEDS: Enoxaparin Sodium 30 MG/0.3 ML SYRINGE SUBCUT (22:39)
[2023-08-13] MEDS: OLANZapine 10 MG VIAL 5 MG IM (02:29)
[2023-08-13 02:54] VITALS: BP 129/89; PULSE 83; RESP 20; TEMP 36.7; O2SAT 93
--- NOTE | 2023-08-13 04:45 | PC.NURSE ---
Approximately after 02:00, pt started to become more agitated, restless, combative towards staff by hitting, spitting, and bitting, and pulling at equal opportunity director. This RN and 1:1 sitter at bedside tried to redirect the pt but with no effect. Dr. Corado was notified of the pt's behavior and harm to self/staff. This RN got approval by Dr. Corado to give the pt's PRN Zyprexa 5mg IM early administration at 02:29, with minimal effect. Will continue to monitor pt's behavior. 1:1 sitter at bedside and camera in room.
[2023-08-13 07:37] VITALS: BP 155/76; PULSE 89; RESP 18; TEMP 36.1; O2SAT 91
[2023-08-13] MEDS: 0.9 % Sodium Chloride Flush 3 ML SYRINGE IVFLUSH ×3 (07:39→23:46)
[2023-08-13 07:50] LABS: Glucose, Whole Blood 100 mg/dL (60-115)
[2023-08-13 09:11] LABS: Anion Gap 12 (12-20); Blood Urea Nitrogen 26 mg/dL (9-16); Calcium 8.5 mg/dL (8.4-10.2); Carbon Dioxide 34 mmol/L (22-29); Chloride 100 mmol/L (96-108); Creatinine Clr Calc Pharmacy 52.4; Estimated Glomerular Filt Rate 58; Glucose Random 98 mg/dL (60-115); Potassium 3.7 mmol/L (3.3-5.1); Sodium 142 mmol/L (135-145)
[2023-08-13 11:32] LABS: Glucose, Whole Blood 129 mg/dL (60-115)
[2023-08-13 13:26] VITALS: PULSE 83; PULSE 87; PULSE 93; O2SAT 81; O2SAT 85; O2SAT 90
[2023-08-13 15:34] VITALS: BP 128/61; PULSE 70; RESP 18; TEMP 36.4; O2SAT 97
[2023-08-13 15:41] VITALS: O2SAT 97
--- NOTE | 2023-08-13 15:55 | MHC.CM.PN ---
EMR REVIEWED , PT WILL DC HOME 08/13 WITH 19/04 FAMILY SUPPORT,NEW [facility] FOR SN AND NEW HOME . [facility] FROM [facility] APPROVES. WILL NEED BLS TRANSPORT. [facility] FAXED COPY OF HCP AND PLACED ON CHART.
[2023-08-13 16:15] LABS: Glucose, Whole Blood 116 mg/dL (60-115)
--- NOTE | 2023-08-13 17:17 | HO.PM.IMPN ---
Subjective Subjective Date of Service: 08/13/23 Interval History: seen and examined this morning resting comfortably unable to obtain history or ROS from pt due to dementia Physical Exam Vital Signs: Vital Signs: Last Vital Signs Temp 97.5 F 08/13/23 15:34 Pulse 70 08/13/23 15:34 Resp 18 08/13/23 15:34 BP 128/61 08/13/23 15:34 Pulse Ox 97 08/13/23 15:41 O2 Del Method Nasal Cannula 08/13/23 15:41 O2 Flow Rate 2 08/13/23 15:41 BMI result Body Mass Index 35.8 Const: General: comfortable, no acute distress, alert and awake Nutritional Appearance: obese Resp: Other: dim Effort & Inspection: normal respiratory effort, no respiratory distress and no use of accessory muscles Cardio: Rate: regular rate Neuro: Other: unable to assess orientation, grossly nonfocal; moves all extremities Extrem: General: Yes no pedal edema Objective Data Active Medications Acetaminophen (Acetaminophen 325 Mg Tablet) 650 mg PO Q6H PRN PRN Reason: Pain, Mild (Pain Scale 1-3) Last Admin: 08/11/23 20:21 Dose: 650 mg Documented By: LAYLA Atorvastatin Calcium (Atorvastatin Calcium 20 Mg Tablet) 20 mg PO BEDTIME [facility] Last Admin: 08/12/23 22:39 Dose: 20 mg Documented By: FAHEEM Dextrose (Dextrose 50 % 25 Gm/50 Ml Syringe) 25 gm IVPUSH Q15M PRN; Protocol PRN Reason: per Hypoglycemia Standing Ord. Enoxaparin Sodium (Enoxaparin Sodium 30 Mg/0.3 Ml Syringe) 30 mg SUBCUT Q24H [facility] Last Admin: 08/12/23 22:39 Dose: 30 mg Documented By: FAHEEM Fluticasone Propionate (Fluticasone Propionate 100 Mcg Blst.W.Dev) 1 puff INHALE RBID [facility] Last Admin: 08/13/23 07:41 Dose: Not Given Documented By: RACHEAL Non-Admin Reason: See Note Furosemide (Furosemide 40 Mg/4 Ml Vial) 40 mg IVPUSH DAILY TOM[facility]; Protocol Last Admin: 08/12/23 08:55 Dose: 40 mg Documented By: HUBER Glucose (Glucose Gel 15 Gm Gel..Gram.) 15 gm PO Q15M PRN; Protocol PRN Reason: per Hypoglycemia Standing Ord. Insulin Human Lispro (Insulin Lispro 100 Unit/Ml 3 Ml Vial) 0 unit SUBCUT QIDACHS [facility]; Protocol Last Admin: 08/13/23 16:28 Dose: Not Given Documented By: HUBER Non-Admin Reason: No Insulin Coverage Levothyroxine Sodium (Levothyroxine Sodium 125 Mcg Tablet) 125 mcg PO DAILY@0630 [facility] Last Admin: 08/13/23 06:12 Dose: Not Given Documented By: FAHEEM Non-Admin Reason: pt combative, unable to give medication Melatonin (Melatonin 3 Mg Tablet) 6 mg PO BEDTIME PRN PRN Reason: Insomnia Last Admin: 08/12/23 22:39 Dose: 6 mg Documented By: FAHEEM Olanzapine (Olanzapine 10 Mg Vial) 5 mg IM DAILY PRN PRN Reason: anxiety/restlessness Last Admin: 08/13/23 02:29 Dose: 5 mg Documented By: FAHEEM Comments: Dr. Corado approved early administration. Ondansetron HCl (Ondansetron Hcl 4 Mg/2 Ml Vial) 4 mg IVPUSH Q8H PRN PRN Reason: Nausea and Vomiting Quetiapine Fumarate (Quetiapine Fumarate 25 Mg Tablet) 25 mg PO BEDTIME [facility] Last Admin: 08/12/23 22:39 Dose: 25 mg Documented By: FAHEEM Sodium Chloride (0.9 % Sodium Chloride Flush 3 Ml Syringe) 3 ml IVFLUSH QSHIFT [facility] Last Admin: 08/13/23 17:00 Dose: 3 ml Documented By: HUBER Labs 08/10/23 05:13 08/13/23 07:51 Labs: Laboratory Results - last 24 hr 08/12/23 08/13/23 08/13/23 20:29 07:45 07:51 Anion Gap 12 Estim Creat Clear Calc 52.4 Estimated GFR 58 POC Glucose 132 H 100 Random Glucose 98 Calcium 8.5 08/13/23 08/13/23 11:26 16:11 Anion Gap Estim Creat Clear Calc Estimated GFR POC Glucose 129 H 116 H Random Glucose Calcium Assessment and Plan (1) Dementia: Status: Acute (2) Cirrhosis: Status: Acute (3) New onset of congestive heart failure: Status: Acute Plan This is a 88-year-old male with pertinent history of dementia with mood disorder, pvd-tqtgcfl-yhnwhmitl diabetes mellitus, hypothyroidism, BPH, asthma was brought to the emergency department for bruising all over. Acute hypoxemic respiratory failure due to acute decompensation of HFrEF echocardiogram EF 40-50% with evidence of grade 2 diastolic dysfunction with lped-uw-pjrvhjab pulmonary hypertension Strict I's and O's, Low-salt diet. neg 10 liters thus far seen by cardiology - overall poor prognosis and given advanced dementia rec goals of care discussion. not a candidate for any further intervention will transition from IV lasix to po lasix bp soft, metoprolol on hold Diffuse anasarca with moderate volume of ascites improving likely multifactorial due to CHF and CT abdomen showing cirrhosis Normocytic anemia Hemoglobin above transfusion threshold Elevated troponin Likely related to increased demand Dementia with mood disorder Continue home mood stabilizers. Monitor sleep-wake cycle more agitated due to change in environment Snl-lzizjhi-xwwjrvvfg diabetes mellitus type 2 metformin on hold sliding scale, ADA diet Hypothyroidism continue Synthroid BPH finasteride DVT prophylaxis with Lovenox Attending Dr. Griffin Full code. Disposition. seen by PT - unable to follow commands, no indication for PT. likely home with family when medically ready goals of care - 08/12 - began discussion with granddaughter who is secondary HCP as primary HCP was not available. discussed palliative care 08/13 - discussed CHF and liver cirrhosis (appears to be a new diagnosis) advanced dementia with poor functional capacity- primarily nonverbal and nonambulatory at baseline - overall poor prognosis with son/HCP Eloy. he is agreeable for patient to go home with palliative care and possible transition to hospice in the near future. patient had home o2 eval and qualifies for 3L at rest. also discussed consideration of changing code status to DNR/DNI - he will discuss with family. can be further pursued on outpatient basis continue hospital stay for supplemental oxygen, safe dispo Quality Stroke Does the patient have a stroke diagnosis?: No VTE Prior VTE?: No VTE Risk Level:: Medical - moderate - high VTE Device Contraindication: Treatment Not Indicated VTE Drug Contraindication: N/A - Med Ordered
[2023-08-13 20:00] VITALS: BP 130/62; PULSE 70; RESP 17; TEMP 36.2; O2SAT 96
[2023-08-13] MEDS: QUEtiapine Fumarate 25 MG TABLET PO (20:53)
[2023-08-13] MEDS: Atorvastatin Calcium 20 MG TABLET PO (20:54)
[2023-08-13 21:12] LABS: Glucose, Whole Blood 146 mg/dL (60-115)
[2023-08-13] MEDS: Enoxaparin Sodium 30 MG/0.3 ML SYRINGE SUBCUT (22:30)
[2023-08-14] MEDS: OLANZapine 10 MG VIAL 5 MG IM (01:21)
[2023-08-14 03:38] VITALS: BP 128/77; PULSE 95; RESP 18; TEMP 36.5; O2SAT 92
--- NOTE | 2023-08-14 03:48 | PC.NURSE ---
PATIENT NOTED WITH NO VOID YET THIS SHIFT OR LATE EVENING, BLADDER SCAN REVEALED 505ML. ASSIST OF 4 TO SIT UP AND URINAL PLACED, TALKED WITH [facility]AT[facility] FAMILY MEDICINE PHYSICIAN ASSISTANT TO VOID AND ABLE TO URINATE 400ML. WILL CONTINUE TO MONITOR
[2023-08-14 07:03] VITALS: BP 121/80; PULSE 94; RESP 18; TEMP 36.6; O2SAT 93
[2023-08-14 07:06] LABS: Glucose, Whole Blood 99 mg/dL (60-115)
[2023-08-14 07:13] VITALS: BP 121/80; PULSE 94; RESP 18; TEMP 36.6; O2SAT 93
[2023-08-14] MEDS: Furosemide 40 MG TABLET PO (08:15)
[2023-08-14] MEDS: 0.9 % Sodium Chloride Flush 3 ML SYRINGE IVFLUSH (08:18)
[2023-08-14] MEDS: Fluticasone Propionate 100 MCG BLST.W.DEV 1 PUFF INHALE (08:46)
--- NOTE | 2023-08-14 10:05 | PM.DS ---
DS: Providers Provider Date of Service: 08/14/23 Date of admission: 08/09/23 22:35 Date of discharge: 08/14/23 Primary care physician: Salomón Bright MD Consults: 08/11/23 11:59 Consult to Psychiatry Routine Consulting Provider: Psych Covering Reason for consultation: dementia, behavioral disturbances, medication recommendations 08/12/23 07:52 Consult to Cardiology Routine Consulting Provider: [facility] [place] [facility] Reason for consultation: CHF Has provider been notified: No Attending physician on discharge: Antonette Mcwilliams Discharging clinician: Saira Marin DS: Diagnosis Discharge Diagnosis (1) New onset of congestive heart failure: Status: Acute (2) Cirrhosis: Status: Acute (3) Dementia: Status: Acute DS: Summary Hospital Course Hospital Course: From H&P on the day of admission This is a 88-year-old male with pertinent history of dementia with mood disorder, kwt-aptbcaz-zndwsjeoo diabetes mellitus, hypothyroidism, BPH, asthma was brought to the emergency department for bruising all over. Patient is altered and unable to obtain history from the patient. History obtained from ER provider and chart review. No family at bedside at the time of my evaluation. Son who was present earlier stated that the patient was having visual hallucinations likely due to dementia. His dementia has progressed over the last 1 month. Patient likely fell and hence the bruising. Unable to obtain review of systems. In the emergency department, he was found to be hypoxemic and BNP found to be elevated. Acute hypoxemic respiratory failure due to acute decompensation of HFrEF echocardiogram EF 40-50% with evidence of grade 2 diastolic dysfunction with tneb-fv-sdqshyvg pulmonary hypertension He was treated with IV lasix and overall is more then 10 liters negative thus far. He was seen by cardiology - overall poor prognosis and given advanced dementia and recommended goals of care discussion as he is not a candidate for any further intervention. He was transioned to PO lasix. He has been stable on 3L NC for several days and had home o2 eval and qualifies for 3L at rest, he is primarily non-ambulatory at baseline. He was also noted to have anasarca with ascites on imaging. Discussed CHF, liver cirrhosis, advanced dementia with poor functional capacity- primarily nonverbal and nonambulatory at baseline - overall poor prognosis with son/HCP Eloy. He is agreeable for patient to go home with palliative care and possible transition to hospice in the near future. Patient had home o2 eval and qualifies for 3L at rest. also discussed consideration of changing code status to DNR/DNI as this is more in line with palliative approach - Eloy he will discuss with family. This can be further pursued on outpatient basis. Patient will return home to family care and his son who is his TOWEL SEWER as well as [facility] services due to new oxygen. Time Attestation Discharge coordination time: Greater than 30 minutes Quality: Safe Use of Opioids Does Pt have an Active Cancer Diagnosis on the Problem List?: No Quality: Stroke Does the patient have a stroke diagnosis?: No Physical Exam Vital Signs: Vital Signs: Last Vital Signs Temp 97.8 F 08/14/23 07:13 Pulse 94 08/14/23 07:13 Resp 18 08/14/23 07:13 BP 121/80 08/14/23 07:13 Pulse Ox 93 08/14/23 07:13 O2 Del Method Nasal Cannula 08/14/23 07:13 O2 Flow Rate 3 08/14/23 07:13 BMI result Body Mass Index 35.8 Const: General: comfortable, no acute distress, alert and awake Nutritional Appearance: obese Resp: Other: dim Effort & Inspection: normal respiratory effort, no respiratory distress and no use of accessory muscles Cardio: Rate: regular rate Neuro: Other: unable to assess orientation, grossly nonfocal; moves all extremities Extrem: General: Yes no pedal edema DS: Data Data Completed and Pending Labs on day of discharge: Laboratory Results - last 24 hr 08/13/23 08/13/23 08/13/23 11:26 16:11 20:51 POC Glucose 129 H 116 H 146 H 08/14/23 06:59 POC Glucose 99 Discharge Plan Discharge Anticipated Discharge Date/Time: 08/14/23 11:00 Patient Disposition: Home Health Service Discharge Diagnosis: Acute respiratory failure new chf new cirrhosis Referrals: Mauricio GORE [Outside] (THE [facility] WILL PROVIDE START OF CARE WITHIN 48 HOURS OF DC ) Salomón Bright MD [Primary Care Provider] - 1 Week Discharge Medications: New furosemide 40 mg Tablet 40 mg PO DAILY 30 Days Qty: 30 0RF Protocol: Hold for SBP< HOLD for SBP < : 90 Continued simvastatin 40 mg tablet 40 mg PO BEDTIME levothyroxine 125 mcg tablet 125 mcg PO DAILY@0630 fluticasone propionate [Flovent HFA] 44 mcg/actuation HFA aerosol inhaler 2 puff inhalation BID metformin 500 mg tablet extended release 24 hr 500 mg PO BID quetiapine 25 mg tablet 25 mg PO BEDTIME Held metoprolol succinate 100 mg tablet extended release 24 hr 100 mg PO DAILY Hold Instructions: bp has been well controlled without metoprolol. discuss need to continue with PCP tramadol 50 mg tablet 50 mg PO Q12H PRN (Reason: pain) Hold Instructions: has not received during hospitalization No Action (DME) FreeStyle Lite Strips Strip See Rx Instructions Not Applicable BID Qty: 10 Rx Instructions: As directed (DME) lancets 33 gauge misc See Rx Instructions Not Applicable BID Qty: 100 Rx Instructions: As directed Discharge Orders: Discharge Order (Routine); Ordered 08/14/23 Ordered By: Saira Marin Activity on Discharge: As tolerated Stand Alone Forms: Patient Portal Discharge page Care Plan Goals: see below Health Concerns: new congestive heart failure new liver cirrosis you have been started on lasix by mouth to help control volume overload. recommend to follow low salt diet if possible you have qualified to use 3L of oxygen, this should be used all the time you will be discharged home with visiting nurse and plan for palliative care. follow up with your PCP Plan of Treatment: see above Assessment: see discharge summary
--- NOTE | 2023-08-14 10:28 | P.F2F_ITS ---
Service Date Service Date: 08/14/23 Encounter Date of encounter: 08/14/23 Reasons for Services Signs and symptoms assessed: needs intermediate for assistance/education in managing new supplemental oxygen Reason for intermediate: other MD Overseeing Care: Salomón Bright Homebound: Leaving the home is medically contraindicated at this time without the asist of a device and/or another person due th the listed conditions above and below. Reason homebound: cognitively impaired / unsafe Certification: Based on the above findings, I certify that this patient is confined to the home and needs intermittent intermediate care, physical therapy and/or speech therapy, or continues to need occupational therapy. The patient is under my care, and I have initiated the establishment of the plan of care. The patient will be followed by a physician who will periodically review the plan of care. Time Spent With Patient Time: Total time managing care of this patient today ____ minutes.
[2023-08-14 11:16] LABS: Glucose, Whole Blood 132 mg/dL (60-115)
--- NOTE | 2023-08-14 12:33 | MHC.CM.PN ---
Addendum entered by Amaya Brennan 08/14/23 13:55: CM ATTEMPTED TO CALL PTS SON BACK TO DISCUSS PTS NEW O2 NEEDS HOWEVER HE DID NOT ANSWER CM CALLED PTS DAUGHTER, KENNY [phone] ALONG WITH PTS NURSE. KENNY REPORTS SHE LIVES IN THE SAME RESIDENCE THE PT AND IS ONE OF HIS CARETAKERS PTS NEW O2 WAS EXPLAINED ALONG WITH INSTRUCTIONS TO CALL [facility] ONCE HE ARRIVES HOME VIA BLS SHE IS AWARE THE BLS CREW WILL TURN THE TANK ON THE CORRECT SETTING WHEN THEY ARRIVE AND IT WILL NOT NEED TO BE CHANGED UNTIL HIS SUPPLIES ARE DELIVERED. CM REITERATED THE IMPORTANCE OF CALLING THE O2 SUPPLY STORE IMMEDIATELY UPON PTS ARRIVAL SO THAT HE DOES NOT RUN OUT THE PORTABLE TANK WILL ONLY LAST A FEW HOURS. SHE INDICATED UNDERSTANDING SHE IS ALSO AWARE THE [facility]NA WILL SEE PT WITHIN 48 HOURS OF DC Original Note: PT WILL DC HOME TODAY WITH [facility] AND NEW HOME O2 PTS SON WAS INFORMED OF DCP YESTERDAY CM CALLED PTS SON TODAY, KAL [phone] HE IS AWARE PT WILL DC HOME AT 1230 HOURS VIA [facility] AND THAT [facility] WILL REACH OUT DIRECTLY
== END 2023-08-14 13:07 | disposition home health service (06) | DRG 291 ==
LOC: HO.ED 20:25 → HO.EDOVER 23:27 → HO.S3 08-10 09:24
PROVIDERS: Nurse Practitioner Acute Care; Physician Assistant; Admitting Provider Student in an Organized Health Care Education/Training Program; Emergency Provider Internal Medicine; PCP Internal Medicine; Visit Provider Physician Assistant Medical
DX: I11.0 Hypertensive heart disease with heart failure (principal); I50.21 Acute systolic (congestive) heart failure; J96.01 Acute respiratory failure with hypoxia; F03.92 Unspecified dementia, unspecified severity, with psychotic disturbance; R18.8 Other ascites; K74.60 Unspecified cirrhosis of liver; I27.20 Pulmonary hypertension, unspecified; E03.9 Hypothyroidism, unspecified; N40.0 Benign prostatic hyperplasia without lower urinary tract symptoms; D64.9 Anemia, unspecified; E11.9 Type 2 diabetes mellitus without complications; Z79.51 Long term (current) use of inhaled steroids; Z79.890 Hormone replacement therapy; Z79.899 Other long term (current) drug therapy
CPT/HCPCS: 36415; 70450; 71045; 71260; 72125; 73080; 73201; 74177; 80048; 80053; 80076; 81003; 82140; 82550; 82947; 83735; 83880; 84484; 85007; 85027; 85610; 85730; 93005; 93306; 97162; 99285; C1758; J1650; J1940; J2359; Q9957; Q9967

== ENCOUNTER 2023-08-09 22:35 | Outpatient (BNV) | payer OTHER, SELFPAY | END 2023-08-10 07:00 | PROVIDERS: Admitting Provider Student in an Organized Health Care Education/Training Program; Emergency Provider Internal Medicine; Visit Provider Internal Medicine | DX: I50.9 Heart failure, unspecified (principal) | CPT/HCPCS: 93306 ==

== ENCOUNTER → 2023-08-09 22:35 | Outpatient (BNV) | payer MEDICARE, SELFPAY | PROVIDERS: Admitting Provider Student in an Organized Health Care Education/Training Program; Emergency Provider Internal Medicine; Visit Provider Student in an Organized Health Care Education/Training Program | DX: I50.9 Heart failure, unspecified (principal); K74.60 Unspecified cirrhosis of liver; F03.90 Unspecified dementia, unspecified severity, without behavioral disturbance, psychotic disturbance, mood disturbance, and anxiety | CPT/HCPCS: 99222; 99232; 99239; G0180 ==

== ENCOUNTER → 2023-08-09 22:35 | Outpatient (BNV) | payer OTHER, SELFPAY | PROVIDERS: Admitting Provider Student in an Organized Health Care Education/Training Program; Emergency Provider Internal Medicine; PCP Internal Medicine; Visit Provider Internal Medicine | DX: I50.43 Acute on chronic combined systolic (congestive) and diastolic (congestive) heart failure (principal); K74.60 Unspecified cirrhosis of liver; F03.90 Unspecified dementia, unspecified severity, without behavioral disturbance, psychotic disturbance, mood disturbance, and anxiety | CPT/HCPCS: 99223 ==